=== PATIENT | female | born 1955 | race Caucasian/White ===

== ENCOUNTER 2017-06-26 19:06 | Inpatient (IN) | payer BC ==
[2017-06-26 19:06] VITALS: BMI 23.6
--- NOTE | 2017-06-26 19:45 | C.PDOC ---
History Of Present Illness Patient presents to the ER with a complaint of nausea, vomiting, diarrhea, and dull achy mid epigastric pain. Patient's last meal was last night which was pizza, rice, and beans; she then began having symptoms this morning. Patient is unable to tolerate PO and has had 1 episode of emesis while in the ER. Denies fever or chills. Time Seen by Provider: 06/26/17 19:45 Chief Complaint (Nursing): Abdominal Pain History Per: Patient History/Exam Limitations: no limitations Onset/Duration Of Symptoms: Hrs Current Symptoms Are (Timing): Still Present Context: Food Severity: Moderate Pain Scale Rating Of: 4 Location Of Pain/Discomfort: Epigastric Radiation Of Pain To:: None Quality Of Discomfort: Dull, Aching Associated Symptoms: Nausea, Vomiting, Diarrhea, Other (Not tolerating PO). denies: Fever, Chills Exacerbating Factors: None Alleviating Factors: None Recent travel outside of the [place]: No Additional History Per: Patient Abnormal Vaginal Bleeding: No Past Medical History Reviewed: Historical Data, Nursing Documentation, Vital Signs Vital Signs: Last Vital Signs Temp 98 F 06/26/17 21:22 Pulse 64 06/26/17 21:22 Resp 18 06/26/17 21:22 BP 148/62 06/26/17 21:22 Pulse Ox 100 06/26/17 21:22 - [facility] Procedures ENDOSC POLYPECTOMY OF LG INTEST (08/28/13) Family History: States: No Known Family Hx - Social History Hx Alcohol Use: No Hx Substance Use: Yes (occasional marijuana) - Immunization History Hx Tetanus Toxoid Vaccination: No Hx Influenza Vaccination: No Hx Pneumococcal Vaccination: No Review Of Systems Constitutional: Negative for: Fever, Chills Eyes: Negative for: Redness ENT: Negative for: Throat Pain Cardiovascular: Positive for: Chest Pain Respiratory: Negative for: Shortness of Breath Gastrointestinal: Positive for: Nausea, Vomiting, Abdominal Pain, Diarrhea Genitourinary: Negative for: Dysuria Musculoskeletal: Negative for: Back Pain Skin: Negative for: Rash Neurological: Negative for: Weakness Psych: Negative for: Anxiety Physical Exam - Physical Exam Appears: Non-toxic Skin: Warm, Dry Head: Normacephalic Eye(s): bilateral: Normal Inspection Oral Mucosa: Dry Neck: Supple Chest: Symmetrical, No Tenderness Cardiovascular: Rhythm Regular Respiratory: No Rales, No Rhonchi, No Wheezing Gastrointestinal/Abdominal: Soft, Tenderness (Mid epigastric), No Guarding, No Rebound Back: Normal Inspection Extremity: Normal ROM Extremity: Bilateral: Atraumatic Pulses: Left Dorsalis Pedis: Normal, Right Dorsalis Pedis: Normal Neurological/Psych: Oriented x3, Normal Speech, Normal Cognition Gait: Steady ED Course And Treatment - Laboratory Results Result Diagrams: 06/26/17 20:26 06/26/17 20:26 ECG: Interpreted By Me, Viewed By Me ECG Rhythm: Sinus Rhythm (64), Nonspecific Changes Pulse Ox Interpretation: Normal Progress Note: EKG, blood work, and urinalysis ordered. IV fluids, pepcid, toradol, and zofran administered. Disposition Discussed With Dr.: Akin Islas Comment: accepted the pt on his service and took over the care at 10:40 PM Doctor Will See Patient In The: ED Counseled Patient/Family Regarding: Studies Performed, Diagnosis - Disposition Disposition: HOSPITALIZED Disposition Time: 19:45 Condition: FAIR Forms: [employer] (Montenegrin) - Clinical Impression Clinical Impression: Abdominal pain, Nausea, Vomiting, Acute diverticulitis, NSTEMI (non-ST elevated myocardial infarction) - Scribe Statement The provider has reviewed the documentation as recorded by the Scribe Darrel Candelaria All medical record entries made by the Scribe were at my direction and personally dictated by me. I have reviewed the chart and agree that the record accurately reflects my personal performance of the history, physical exam, medical decision making, and the department course for this patient. I have also personally directed, reviewed, and agree with the discharge instructions and disposition. Decision To Admit - Pt Status Changed To: Hospital Disposition Of: Inpatient - Admit Certification Admit to Inpatient:: After my assessment, the patient will require hospitalization for at least two midnights. This is because of the severity of symptoms shown, intensity of services needed, and/or the medical risk in this patient being treated as an outpatient. - InPatient: Physician Admission Certification:: After my assessment, the patient will require hospitalization for at least two midnights. This is because of the severity of symptoms shown, intensity of services needed, and/or the medical risk in this patient being treated as an outpatient. - . Bed Request Type: Telemetry Admitting Physician: Akin Islas Patient Diagnosis: Abdominal pain, Nausea, Vomiting, Acute diverticulitis, NSTEMI (non-ST elevated myocardial infarction)
[2017-06-26] MEDS ORDERED: Lactated Ringer's 1,000 ML IV ONE (19:53)
[2017-06-26] MEDS ORDERED: Lactated Ringer's 1,000 ML ONE (20:26)
[2017-06-26 20:37] LABS: BASO # 0.1 K/uL (0.0-0.2); BASO % 0.5 % (0.0-2.0); HEMOGLOBIN 11.3 g/dL (11.0-16.0); LYMPH # 0.6 K/uL (1.0-4.3); LYMPH % 5.2 % (20.0-40.0); MEAN CELL VOLUME 85.8 fL (81.0-99.0); MEAN CORPUSCULAR HEMOGLOBIN 27.4 pg (27.0-31.0); MEAN CORPUSCULAR HGB CONC 31.9 g/dL (33.0-37.0); MEAN PLATELET VOLUME 12.7 fL (7.2-11.7); MONO # 0.3 K/uL (0.0-0.8); MONO % 2.4 % (0.0-10.0); NEUT # 10.9 K/uL (1.8-7.0); NEUT % 91.9 % (50.0-75.0); PLATELET COUNT 190 K/uL (130-400); RBC 4.14 Mil/uL (3.80-5.20); RED CELL DISTRIBUTION WIDTH 14.3 % (11.5-14.5); WHITE BLOOD COUNT 11.8 K/uL (4.8-10.8)
[2017-06-26 20:53] LABS: ALBUMIN 4.5 g/dL (3.5-5.0); ALT/SGPT 19 U/L (9-52); AST/SGOT 27 U/L (14-36); BLOOD UREA NITROGEN 16 mg/dL (7-17); GFR AFRICAN-AMERICAN > 60; GFR NON-AFRICAN AMERICAN > 60; LIPASE 36 U/L (23-300)
[2017-06-26 21:01] LABS: ALB/GLOB RATIO 1.2 (1.0-2.1)
[2017-06-26] MEDS ORDERED: Morphine 4 MG/ML VIAL ONE (21:03)
[2017-06-26 21:04] LABS: PROTHROMBIN TIME 11.5 SECONDS (9.7-12.2)
[2017-06-26] MEDS ORDERED: Iohexol 300 100 ML IJ ONE (21:31)
[2017-06-26 22:08] LABS: BANDS 3 % (0-2); LARGE PLATELETS PRESENT; LYMPHOCYTE 8 % (20-40); MICROCYTOSIS SLIGHT; MONOCYTE 5 % (0-10); NEUTROPHIL 84 % (50-75); PLATELET ESTIMATE NORMAL (NORMAL); TOTAL CELLS COUNTED 100
--- NOTE | 2017-06-26 22:30 | CT ---
EXAM: CT Abdomen and Pelvis With Intravenous Contrast CLINICAL HISTORY: 61 years old, female; Pain and signs and symptoms; Nausea and vomiting; Abdominal pain; Generalized; Additional info: Abd pain TECHNIQUE: Axial computed tomography images of the abdomen and pelvis with intravenous contrast. All CT scans at this facility use one or more dose reduction techniques, viz.: automated exposure control; ma/kV adjustment per patient size (including targeted exams where dose is matched to indication; i.e. head); or iterative reconstruction technique. Coronal and sagittal reformatted images were created and reviewed. CONTRAST: 100 mL of omnipaque 300 administered intravenously. COMPARISON: No relevant prior studies available. FINDINGS: Lower thorax: Borderline cardiomegaly. Mild atelectasis. Small cyst or bulla right lower lobe. Small hiatal hernia. ABDOMEN: Liver: Mild periportal edema. Gallbladder and bile ducts: Apparent mild asymmetric gallbladder wall thickening versus fluid. No calcified gallstones. No significant ductal dilation. Pancreas: No ductal dilation. No mass. Spleen: No splenomegaly. Adrenals: 1.1 x 1.2 x 2.0 cm lesion within LEFT adrenal gland, indeterminate by CT criteria. Kidneys and ureters: Few left peripelvic cysts. No hydronephrosis. Stomach and bowel: Multiple scattered diverticula within colon. Moderate mural thickening short segment of sigmoid colon. Minimal stranding within adjacent fat. No obstruction. Appendix: Normal caliber. No inflammation. PELVIS: Bladder: Unremarkable. Reproductive: Lobulated uterus with few calcified lesions. ABDOMEN and PELVIS: Intraperitoneal space: No significant fluid collection. No free air. Bones/joints: Hemangiomas within spine. Degenerative changes of spine. No acute fracture. Soft tissues: Tiny umbilical hernia containing fat. Vasculature: Minimal atherosclerotic disease. No aneurysm. Lymph nodes: No pathologically enlarged lymph nodes. IMPRESSION: 1. Findings compatible with acute diverticulitis of sigmoid colon. Recommend endoscopy following resolution. 2. Apparent mild asymmetric gallbladder wall thickening or fluid. Suggest ultrasound. 3. Adrenal lesion. Recommend further evaluation with unenhanced abdominal CT or MR. Alternatively, if there is a history of malignancy, consider PET. 4. Probable fibroid uterus. 5. Incidental/non-acute findings are described above.
[2017-06-26] MEDS ORDERED: Ciprofloxacin 400mg/200ml D5W 400 MG/200 ML BAG IVPB STA (22:34)
[2017-06-26] MEDS ORDERED: metroNIDAZOLE IV 500 mg/100 ml 500 MG/100 ML BAG IVPB SCH (22:45)
[2017-06-26 22:53] LABS: URINE BILIRUBIN NEGATIVE (NEGATIVE); URINE BLOOD NEGATIVE (NEGATIVE); URINE CLARITY Clear (Clear); URINE COLOR Straw (YELLOW); URINE GLUCOSE (UA) 1+ mg/dL (Normal); URINE LEUKOCYTE ESTERASE NEG Leu/uL (Negative); URINE NITRATE NEGATIVE (NEGATIVE); URINE PROTEIN 1+ mg/dL (NEGATIVE); URINE UROBILINOGEN NORMAL mg/dL (0.2-1.0)
--- NOTE | 2017-06-26 22:57 | CP.PCM.HP ---
<Ramandeep Medina - Last Filed: 06/26/17 23:57> History of Present Illness - History of Present Illness History of Present Illness: Medicine Note for Hospitalist Service CC: abdominal pain and diarrhea x 1 day HPI: 61 Female with PMHx of Breast Cancer (in complete remission) presents to the ED with abdominal pain and diarrhea x 1 day. She reports she was fine up until 11am this morning when she started to experience nausea, crampy abdominal pain localized to her upper abdomen, and nonbloody diarrhea. She did not take anything for the pain or diarrhea. She has not had the desire to eat, only tolerating liquids. At home she stated she felt feverish but no recorded temperature. Admitted to chest discomfort which she attributed to being nauseous. Denied fever, chills, SOB, n/v/c, or urinary symptoms. PMHx: Breast Cancer (1994- lumpectomy and radiation- complete remission) PSHx: Lumpectomy Meds: Denied All: NKDA SHx: Admitted to smoking 5-10 cigs a day >20-30 years ago, wine on weekends, smokes marijuana FHx: Unremarkable PMD: Francheska Velazquez (last seen- 2017 physical) Present on Admission - Present on Admission Any Indicators Present on Admission: No Past Patient History - Past Medical History & Family History Past Medical History?: No - Past Social History Smoking Status: Never Smoked - PSYCHIATRIC Hx Substance Use: Yes (occasional marijuana) - SURGICAL HISTORY Hx Surgeries: Yes Other/Comment: RIGHT BREAST LUMPECTOMY 1994 - ANESTHESIA Hx Anesthesia: Yes Hx Anesthesia Reactions: No Hx Malignant Hyperthermia: No Meds Allergies/Adverse Reactions: Allergies Allergy/AdvReac Type Severity Reaction Status Date / Time No Known Allergies Allergy Unverified 05/10/13 13:48 Physical Exam - Constitutional Appears: No Acute Distress - Head Exam Head Exam: NORMAL INSPECTION, NORMOCEPHALIC - Eye Exam Eye Exam: EOMI, Normal appearance, PERRL - ENT Exam ENT Exam: Mucous Membranes Moist - Respiratory Exam Respiratory Exam: Clear to Auscultation Bilateral, NORMAL BREATHING PATTERN. absent: Decreased Breath Sounds, Wheezes - Cardiovascular Exam Cardiovascular Exam: REGULAR RHYTHM - GI/Abdominal Exam GI & Abdominal Exam: Normal Bowel Sounds, Soft, Tenderness. absent: Distended ( TTP LUQ LLQ ) - Extremities Exam Extremities exam: Positive for: normal inspection, pedal pulses present. Negative for: pedal edema, tenderness - Neurological Exam Neurological exam: Alert, Oriented x3 - Psychiatric Exam Psychiatric exam: Normal Affect, Normal Mood - Skin Skin Exam: Diaphoretic, Intact, Normal Color, Warm Results - Vital Signs Recent Vital Signs: Last Vital Signs Temp 98 F 06/26/17 21:22 Pulse 64 06/26/17 21:22 Resp 18 06/26/17 21:22 BP 148/62 06/26/17 21:22 Pulse Ox 100 06/26/17 21:22 - Labs Result Diagrams: 06/26/17 20:26 06/26/17 20:26 Labs: Laboratory Results - last 24 hr 06/26/17 06/26/17 06/26/17 20:26 20:26 20:46 WBC 11.8 H D RBC 4.14 Hgb 11.3 Hct 35.5 MCV 85.8 MCH 27.4 MCHC 31.9 L RDW 14.3 Plt Count 190 MPV 12.7 H Neut % (Auto) 91.9 H Lymph % (Auto) 5.2 L [place] % (Auto) 2.4 Eos % (Auto) 0.0 Baso % (Auto) 0.5 Neut # 10.9 H Lymph # 0.6 L [place] # 0.3 Eos # 0.0 Baso # 0.1 Neutrophils % (Manual) 84 H Band Neutrophils % 3 H Lymphocytes % (Manual) 8 L Monocytes % (Manual) 5 Platelet Estimate Normal Large Platelets Present Microcytosis (manual) Slight PT 11.5 INR 1.0 APTT 22 Sodium 136 Potassium 3.9 Chloride 99 Carbon Dioxide 25 Anion Gap 15 BUN 16 Creatinine 0.6 L Est GFR ( Amer) > 60 Est GFR (Non-Af Amer) > 60 Random Glucose 155 H Calcium 9.0 Total Bilirubin 1.0 AST 27 ALT 19 Alkaline Phosphatase 72 Troponin I 0.4540 H* Total Protein 8.4 H Albumin 4.5 Globulin 3.9 Albumin/Globulin Ratio 1.2 Lipase 36 Assessment & Plan - Assessment and Plan (Free Text) Assessment: 61 Female with PMHx of Breast Cancer (in complete remission) presents to the ED with abdominal pain and diarrhea x 1 day, with NSTEMI and diverticulitis noted on CT ab/pelvis. Plan: NSTEMI Cardiology consulted - Dr. Gillette- help appreciated EKG: , f/u EKG x2 Troponin: 0.4540, f/u RUTH x2 F/U Lipid panel, HGA1C, TSH, T4 Imaging: F/U ECHO Meds: ASA 81, Crestor 10mg Diverticulitis Afebrile, vitals stable, leukocytosis with left shift, no bandemia Imaging: CT Ab/Pelvis: Findings compatible with acute diverticulitis of sigmoid colon. Recommend endoscopy following resolution. Apparent mild asymmetric gallbladder wall thickening or fluid. Suggest ultrasound. Adrenal lesion. Recommend further evaluation with unenhanced abdominal CT or MR. Alternatively , if there is a history of malignancy, consider PET. Probable fibroid uterus. Meds: NPO, NS @ 100cc/hr Cipro Q12, Flagyl Q8H Morphine PRN, Zofran PRN, Tylenol PRN Adrenal lesion noted on CT Scan Prophylactic Measures GI PPX: Protonix 40mg IVP daily DVT PPX: Heparin Q12, SCDs DW Dr. Islas, Ramandeep Medina DO, PGY-1 <Akin Islas - Last Filed: 06/27/17 06:31> Results - Vital Signs Recent Vital Signs: Last Vital Signs Temp 97.7 F 06/27/17 01:00 Pulse 54 L 06/27/17 01:05 Resp 20 06/27/17 01:05 BP 122/69 06/27/17 01:00 Pulse Ox 100 06/27/17 01:00 - Labs Result Diagrams: 06/26/17 20:26 06/26/17 20:26 Labs: Laboratory Results - last 24 hr 06/26/17 06/26/17 06/26/17 20:26 20:26 20:46 WBC 11.8 H D RBC 4.14 Hgb 11.3 Hct 35.5 MCV 85.8 MCH 27.4 MCHC 31.9 L RDW 14.3 Plt Count 190 MPV 12.7 H Neut % (Auto) 91.9 H Lymph % (Auto) 5.2 L [place] % (Auto) 2.4 Eos % (Auto) 0.0 Baso % (Auto) 0.5 Neut # 10.9 H Lymph # 0.6 L [place] # 0.3 Eos # 0.0 Baso # 0.1 Neutrophils % (Manual) 84 H Band Neutrophils % 3 H Lymphocytes % (Manual) 8 L Monocytes % (Manual) 5 Platelet Estimate Normal Large Platelets Present Microcytosis (manual) Slight PT 11.5 INR 1.0 APTT 22 Sodium 136 Potassium 3.9 Chloride 99 Carbon Dioxide 25 Anion Gap 15 BUN 16 Creatinine 0.6 L Est GFR ( Amer) > 60 Est GFR (Non-Af Amer) > 60 Random Glucose 155 H Hemoglobin A1c Calcium 9.0 Total Bilirubin 1.0 AST 27 ALT 19 Alkaline Phosphatase 72 Troponin I 0.4540 H* Total Protein 8.4 H Albumin 4.5 Globulin 3.9 Albumin/Globulin Ratio 1.2 Lipase 36 Thyroxine (T4) TSH 3rd Generation Urine Color Urine Clarity Urine pH Ur Specific [place] Urine Protein Urine Glucose (UA) Urine Ketones Urine Blood Urine Nitrate Urine Bilirubin Urine Urobilinogen Ur Leukocyte Esterase Urine RBC (Auto) 06/26/17 06/26/17 06/26/17 22:45 23:34 23:34 WBC RBC Hgb Hct MCV MCH MCHC RDW Plt Count MPV Neut % (Auto) Lymph % (Auto) [place] % (Auto) Eos % (Auto) Baso % (Auto) Neut # Lymph # [place] # Eos # Baso # Neutrophils % (Manual) Band Neutrophils % Lymphocytes % (Manual) Monocytes % (Manual) Platelet Estimate Large Platelets Microcytosis (manual) PT INR APTT Sodium Potassium Chloride Carbon Dioxide Anion Gap BUN Creatinine Est GFR ( Amer) Est GFR (Non-Af Amer) Random Glucose Hemoglobin A1c 5.3 Calcium Total Bilirubin AST ALT Alkaline Phosphatase Troponin I Total Protein Albumin Globulin Albumin/Globulin Ratio Lipase Thyroxine (T4) 10.5 TSH 3rd Generation 0.77 Urine Color Straw Urine Clarity Clear Urine pH 7.0 Ur Specific [place] 1.043 H Urine Protein 1+ H Urine Glucose (UA) 1+ Urine Ketones Trace Urine Blood Negative Urine Nitrate Negative Urine Bilirubin Negative Urine Urobilinogen Normal Ur Leukocyte Esterase Neg Urine RBC (Auto) 1 Assessment & Plan - Date & Time Date: 06/27/17 (I have seen and examined the patient. I agree with the findings and plan of care as documented by Dr. Medina. Patient with NSTEMI and acute diverticulitis. Consult to Dr Gillette. Aspirin and Statin. ROMIx3 with EKG. 2D Echo. Cipro and Flagyl. Symptomatic treatment. Monitor for acute changes.) Time: 06:30 Attending/Attestation - Attestation I have personally seen and examined this patient.: Yes I have fully participated in the care of the patient.: Yes I have reviewed all pertinent clinical information: Yes
[2017-06-26] MEDS ORDERED: Sodium Chloride 0.9% 1,000 ML ONE (23:20)
[2017-06-26] MEDS: Sodium Chloride 0.9% 1,000 ML IV SCH (23:27)
[2017-06-27 00:10] LABS: T4 10.5 ug/dL (5.5-11.0)
[2017-06-27] MEDS ORDERED: metroNIDAZOLE IV 500 mg/100 ml 250 MG in Premixed IV 1 EA IVPB SCH (06:00)
[2017-06-27 07:05] LABS: LDL CHOLESTEROL 105 mg/dL (0-129)
[2017-06-27 07:20] LABS: ALB/GLOB RATIO 1.1 (1.0-2.1); ALBUMIN 3.7 g/dL (3.5-5.0); ALT/SGPT 20 U/L (9-52); AST/SGOT 31 U/L (14-36); BASO % 0.2 % (0.0-2.0); BLOOD UREA NITROGEN 14 mg/dL (7-17); CALCIUM 8.4 mg/dl (8.6-10.4); GFR AFRICAN-AMERICAN > 60; GFR NON-AFRICAN AMERICAN > 60; HDL CHOLESTEROL 40 mg/dL (30-70); HEMOGLOBIN 10.1 g/dL (11.0-16.0); LYMPH # 1.2 K/uL (1.0-4.3); LYMPH % 13.2 % (20.0-40.0); MAGNESIUM 1.6 mg/dL (1.6-2.3); MEAN CELL VOLUME 86.2 fL (81.0-99.0); MEAN CORPUSCULAR HEMOGLOBIN 28.2 pg (27.0-31.0); MEAN CORPUSCULAR HGB CONC 32.7 g/dL (33.0-37.0); MEAN PLATELET VOLUME 13.5 fL (7.2-11.7); MONO # 0.5 K/uL (0.0-0.8); MONO % 6.2 % (0.0-10.0); NEUT # 7.2 K/uL (1.8-7.0); NEUT % 80.4 % (50.0-75.0); RBC 3.58 Mil/uL (3.80-5.20); WHITE BLOOD COUNT 8.9 K/uL (4.8-10.8)
[2017-06-27 07:30] LABS: CK-MB 8.06 ng/mL (0.0-3.38); TROPONIN I 1.55 ng/mL (0.00-0.120)
[2017-06-27] MEDS ORDERED: Enoxaparin 80 mg Syringe SC SCH (07:45)
[2017-06-27] MEDS: Saccharomyces Boulardi 250 mg Cap PO SCH ×3 (08:10→17:40)
--- NOTE | 2017-06-27 08:20 | CP.PCM.PN ---
<Radha Walls - Last Filed: 06/27/17 17:32> Subjective - Date & Time of Evaluation Date of Evaluation: 06/27/17 Time of Evaluation: 07:00 - Subjective Subjective: Medicine Progress Note: Patient was seen and examined at bedside in the AM. Patient denies chest pain, palpitations, difficulty breathing, fever, nausea, or vomiting. Patient states since she was admitted to the hospital she has not had an episode of diarrhea. Objective - Vital Signs/Intake and Output Vital Signs (last 24 hours): Temp Pulse Resp BP Pulse Ox 98.4 F 46 L 20 122/67 100 06/27/17 08:17 06/27/17 08:17 06/27/17 08:17 06/27/17 08:17 06/27/17 08:17 - Medications Medications: Current Medications Acetaminophen (Tylenol 325mg Tab) 650 mg PO Q6 PRN PRN Reason: Fever >100.4 F Last Admin: 06/26/17 23:27 Dose: 650 mg Aspirin (Aspirin Chewable) 81 mg PO DAILY [facility] Clopidogrel Bisulfate (Plavix) 75 mg PO DAILY [facility] Last Admin: 06/27/17 08:10 Dose: 75 mg Enoxaparin Sodium (Lovenox) 70 mg SC DAILY [facility] Metronidazole (Flagyl) 500 mg in 100 mls @ 100 mls/hr IVPB STAT [facility] Last Admin: 06/26/17 23:27 Dose: 100 mls/hr Sodium Chloride (Sodium Chloride 0.9%) 1,000 mls @ 100 mls/hr IV .Q10H [facility] Last Admin: 06/26/17 23:27 Dose: 100 mls/hr Ciprofloxacin (Cipro 400mg/200ml Dsw) 400 mg in 200 mls @ 133 mls/hr IVPB Q12H [facility] Metronidazole 250 mg/ (Miscellaneous) 50 mls @ 100 mls/hr IVPB Q8 [facility] Morphine Sulfate (Morphine) 1 mg IVP Q4 PRN PRN Reason: Pain, severe (8-10) Last Admin: 06/27/17 00:20 Dose: 1 mg Ondansetron HCl (Zofran Inj) 4 mg IVP Q6 PRN PRN Reason: Nausea/Vomiting Last Admin: 06/26/17 23:27 Dose: 4 mg Pneumococcal Polyvalent Vaccine (Pneumovax 23 Vaccine) 0.5 ml IM .ONCE ONE Stop: 06/30/17 14:01 Rosuvastatin Calcium (Crestor) 10 mg PO HS [facility] Saccharomyces Boulardii (Florastor) 250 mg PO BID [facility] Last Admin: 06/27/17 08:10 Dose: 250 mg - Labs Labs: 06/27/17 06:32 06/27/17 06:32 PT 11.5 SECONDS (9.7-12.2) 06/26/17 20:46 INR 1.0 06/26/17 20:46 APTT 22 SECONDS (21-34) 06/26/17 20:46 - Constitutional Appears: No Acute Distress - Head Exam Head Exam: ATRAUMATIC, NORMAL INSPECTION - Eye Exam Eye Exam: Normal appearance - ENT Exam ENT Exam: Mucous Membranes Moist - Respiratory Exam Respiratory Exam: Clear to Ausculation Bilateral, NORMAL BREATHING PATTERN - Cardiovascular Exam Cardiovascular Exam: REGULAR RHYTHM, +S1, +S2 - GI/Abdominal Exam GI & Abdominal Exam: Soft, Normal Bowel Sounds. absent: Tenderness - Extremities Exam Extremities Exam: Normal Inspection. absent: Pedal Edema, Tenderness - Neurological Exam Neurological Exam: Alert, Awake, Oriented x3 - Psychiatric Exam Psychiatric exam: Normal Affect, Normal Mood - Skin Skin Exam: Normal Color, Warm Assessment and Plan - Assessment and Plan (Free Text) Assessment: 61 Female with PMHx of Breast Cancer (in complete remission) presents to the ED with abdominal pain and diarrhea x 1 day, with NSTEMI and diverticulitis noted on CT ab/pelvis. 1.) NSTEMI - Cardiology consulted: Dr. Gillette --> help appreciated - EK x3: Bradycardia; prolonged QT - Troponin: 0.4540, 1.5500, 1.3200 - Cholesterol 179; LDL 105; HDL 40; Triglycerides 77 - TSH 0.77 Imaging: * ECHO: Left ventricle systolic function is mildly impaired. The ejection fraction is 50-55%. The left ventricular diastolic function is normal. There is mild pulmonary hypertension - Medications: * ASA 81, * Crestor 10mg * Lovenox 40mg SC daily - s/p Cath 06/27/16: Patient transferred to ICU for monitoring 2.) Diverticulitis - Afebrile, vitals stable, leukocytosis with left shift, no bandemia - Imaging: * CT Ab/Pelvis: Findings compatible with acute diverticulitis of sigmoid colon. Recommend endoscopy following resolution. Apparent mild asymmetric gallbladder wall thickening or fluid. Suggest ultrasound. Adrenal lesion. Recommend further evaluation with unenhanced abdominal CT or MR. Alternatively , if there is a history of malignancy, consider PET. Probable fibroid uterus. - Medications: * NS @ 100cc/hr * Cipro 400mg Q12 * Flagyl 250mg Q8H * Morphine PRN, * Zofran PRN, * Tylenol PRN 3.) Prophylactic Measures - GI PPX: Protonix 40mg IVP daily - DVT PPX: Lovenox 40mg SC daily, SCDs Patient transferred to ICU s/p cardiac cath for monitoring Case discussed with Dr. Haris Walls PGY -1 <Gallo Carballo - Last Filed: 06/27/17 19:04> Objective - Vital Signs/Intake and Output Vital Signs (last 24 hours): Temp Pulse Resp BP Pulse Ox 98.7 F 48 L 20 132/72 98 06/27/17 12:16 06/27/17 12:16 06/27/17 12:16 06/27/17 12:16 06/27/17 12:16 - Medications Medications: Current Medications Acetaminophen (Tylenol 325mg Tab) 650 mg PO Q6 PRN PRN Reason: Fever >100.4 F Last Admin: 06/26/17 23:27 Dose: 650 mg Aspirin (Aspirin Chewable) 81 mg PO DAILY [facility] Last Admin: 06/27/17 09:29 Dose: 81 mg Enoxaparin Sodium (Lovenox) 40 mg SC DAILY [facility] Sodium Chloride (Sodium Chloride 0.9%) 1,000 mls @ 100 mls/hr IV .Q10H [facility] Last Admin: 06/27/17 17:42 Dose: 100 mls/hr Metronidazole (Flagyl) 250 mg in 50 mls @ 100 mls/hr IVPB Q8H [facility] Last Admin: 06/27/17 17:40 Dose: 100 mls/hr Morphine Sulfate (Morphine) 1 mg IVP Q4 PRN PRN Reason: Pain, severe (8-10) Last Admin: 06/27/17 17:35 Dose: 1 mg Ondansetron HCl (Zofran Inj) 4 mg IVP Q6 PRN PRN Reason: Nausea/Vomiting Last Admin: 06/27/17 17:29 Dose: 4 mg Pantoprazole Sodium (Protonix Inj) 40 mg IVP DAILY [facility] Pneumococcal Polyvalent Vaccine (Pneumovax 23 Vaccine) 0.5 ml IM .ONCE ONE Stop: 06/30/17 14:01 Rosuvastatin Calcium (Crestor) 10 mg PO HS [facility] Saccharomyces Boulardii (Florastor) 250 mg PO BID [facility] Last Admin: 06/27/17 17:40 Dose: Not Given - Labs Labs: 06/27/17 06:32 PT 11.5 SECONDS (9.7-12.2) 06/26/17 20:46 INR 1.0 06/26/17 20:46 APTT 22 SECONDS (21-34) 06/26/17 20:46 Attending/Attestation - Attestation I have personally seen and examined this patient.: Yes I have fully participated in the care of the patient.: Yes I have reviewed all pertinent clinical information, including history, physical exam and plan: Yes Notes (Text): patient was seen and examined No fever,abd pain is better,no chest pain this morning,no leukocytosis NSTEMI ,prolonged QT interval,bradycardia s/p cardiac cath. report noted,s/p TVP tranferred to ICU CT scan reported diverticulitis.Benign abdomen without fever and leukocytosis.I will stop cipro which can cause prolonged QT interval D/W Resident this morning I agree with the documentation of the assessment and the plan
[2017-06-27] MEDS: Sodium Chloride 0.9% 1,000 ML IV SCH ×3 (09:29→19:02)
[2017-06-27] MEDS ORDERED: Ciprofloxacin 400mg/200ml D5W 400 MG/200 ML BAG IVPB SCH (10:00)
[2017-06-27] MEDS: metroNIDAZOLE IV 250mg/50 ml 250 MG/50 ML BAG IVPB SCH ×2 (11:08→17:40)
[2017-06-27 12:38] LABS: CK-MB 7.44 ng/mL (0.0-3.38); TROPONIN I 1.32 ng/mL (0.00-0.120)
--- NOTE | 2017-06-27 13:01 | CARD ---
APPROVED REPORT EXAM: Two-dimensional and M-mode echocardiogram with Doppler and color Doppler. Other Information Quality : GoodRhythm : INDICATION Non STEMI CA OF BREAST 2D DIMENSIONS IVSd0.8 (0.7-1.1cm)LVDd5.3 (3.9-5.9cm) PWd0.7 (0.7-1.1cm)LVDs3.7 (2.5-4.0cm) FS (%) 30.7 %LVEF (%)57.8 (>50%) M-Mode DIMENSIONS Left Atrium (MM)4.23 (2.5-4.0cm)Aortic Root2.60 (2.2-3.7cm) Aortic Cusp Exc.1.84 (1.5-2.0cm) Mitral Valve MV E Pzzuulys04.0cm/sMV A Wqwahxun13.4cm/sE/A ratio1.6 TDI E/Lateral E'0.0E/Medial E'0.0 Tricuspid Valve TR Peak [id number]/sTR Peak [id number] LEFT VENTRICLE The left ventricle is normal size. There is normal left ventricular wall thickness. Left ventricle systolic function is mildly impaired. The Ejection Fraction is 50-55%., No GLS Global hypokinesia, mildly The left ventricular diastolic function is normal. There is no ventricular septal defect visualized. RIGHT VENTRICLE The right ventricle is normal size. The right ventricular systolic function is normal. ATRIA The left atrium is mildly dilated. The right atrium size is normal. AORTIC VALVE The aortic valve is mildly sclerotic. The aortic valve is tri-cuspid. No aortic regurgitation is present. There is no aortic valvular stenosis. MITRAL VALVE The mitral valve is normal in structure. There is no evidence of mitral valve prolapse. There is no mitral valve stenosis. TRICUSPID VALVE The tricuspid valve is normal in structure. There is trace tricuspid regurgitation. Right ventricular systolic pressure is estimated at 30-40 mmHg. There is mild pulmonary hypertension. PULMONIC VALVE The pulmonic valve is not well visualized. There is trace pulmonic valvular regurgitation. GREAT VESSELS The aortic root is normal in size. The ascending aorta is normal in size. The IVC is normal in size and collapses >50% with inspiration. PERICARDIAL EFFUSION There is no pericardial effusion. <Conclusion> Left ventricle systolic function is mildly impaired. The Ejection Fraction is 50-55%. The left ventricular diastolic function is normal. There is mild pulmonary hypertension.
[2017-06-27] MEDS ORDERED: Phenylephrine 10 mg/ml Inj ONE (13:26)
[2017-06-27] MEDS ORDERED: Midazolam 2 MG/2 ML VIAL ONE (13:27)
[2017-06-27] MEDS ORDERED: Lidocaine 2% Inj (20ml) ONE (13:39)
--- NOTE | 2017-06-27 14:51 | CP.PCM.PN ---
Subjective - Date & Time of Evaluation Date of Evaluation: 06/27/17 Time of Evaluation: 14:49 - Subjective Subjective: Patient s/p cath Normal Coronaries EF 55% Myocarditis Prolonged QT Symptomatic bradycardia TVP inserted ICU monitoring Monitor and replace electrolytes Change Lovenox 40sc daily D/C Plavix IVF Objective - Vital Signs/Intake and Output Vital Signs (last 24 hours): Temp Pulse Resp BP Pulse Ox 98.7 F 48 L 20 132/72 98 06/27/17 12:16 06/27/17 12:16 06/27/17 12:16 06/27/17 12:16 06/27/17 12:16 - Medications Medications: Current Medications Acetaminophen (Tylenol 325mg Tab) 650 mg PO Q6 PRN PRN Reason: Fever >100.4 F Last Admin: 06/26/17 23:27 Dose: 650 mg Aspirin (Aspirin Chewable) 81 mg PO DAILY [facility] Last Admin: 06/27/17 09:29 Dose: 81 mg Clopidogrel Bisulfate (Plavix) 75 mg PO DAILY [facility] Last Admin: 06/27/17 08:10 Dose: 75 mg Enoxaparin Sodium (Lovenox) 70 mg SC DAILY [facility] Last Admin: 06/27/17 11:08 Dose: 70 mg Sodium Chloride (Sodium Chloride 0.9%) 1,000 mls @ 100 mls/hr IV .Q10H [facility] Last Admin: 06/27/17 09:29 Dose: 100 mls/hr Ciprofloxacin (Cipro 400mg/200ml Dsw) 400 mg in 200 mls @ 133 mls/hr IVPB Q12H [facility] Last Admin: 06/27/17 09:28 Dose: 133 mls/hr Metronidazole (Flagyl) 250 mg in 50 mls @ 100 mls/hr IVPB Q8H [facility] Last Admin: 06/27/17 11:08 Dose: 100 mls/hr Morphine Sulfate (Morphine) 1 mg IVP Q4 PRN PRN Reason: Pain, severe (8-10) Last Admin: 06/27/17 00:20 Dose: 1 mg Ondansetron HCl (Zofran Inj) 4 mg IVP Q6 PRN PRN Reason: Nausea/Vomiting Last Admin: 06/26/17 23:27 Dose: 4 mg Pneumococcal Polyvalent Vaccine (Pneumovax 23 Vaccine) 0.5 ml IM .ONCE ONE Stop: 06/30/17 14:01 Rosuvastatin Calcium (Crestor) 10 mg PO HS [facility] Saccharomyces Boulardii (Florastor) 250 mg PO BID [facility] Last Admin: 06/27/17 14:20 Dose: Not Given - Labs Labs: 06/27/17 06:32 06/27/17 06:32 PT 11.5 SECONDS (9.7-12.2) 06/26/17 20:46 INR 1.0 06/26/17 20:46 APTT 22 SECONDS (21-34) 06/26/17 20:46
[2017-06-27] MEDS ORDERED: Magnesium Sulfate 1 gm in D5W 1 GM/100 ML BAG IVPB ONE ×2 (16:39→17:40)
--- NOTE | 2017-06-27 16:55 | CP.PCM.CON ---
<DelorisTobin waddell - Last Filed: 06/27/17 17:20> History of Present Illness - History of Present Illness History of Present Illness: CCU Consult Note HPI: Pt is a 61F w/ h/o Breast Cancer (in complete remision) who presented to the ED w/ nausea, vomiting, diarrhea, and dull achy mid epigastric pain and diarrhea x 1 day. Last meal was 15 in the PM. Pt began having symptoms at 11 am 06/27. Has only been able to tolerate PO liquids and had 1 episode of emesis in the ED. Patient was evaluated by Dr. Gillette for symptomatic bradycardia. TVP was inserted via femoral approach. Consulted CCU for closer monitoring PMH: Breast Cancer 1994, s/p lumpectomy and radiation - complete remission PSH: Lumpectomy 1994 FH: none SH: smokes 5-10 cigarettes a day > 20-30 years ago, wine on weekends, smokes marijuana Meds: none All: none Review of Systems - Review of Systems Review of Systems: per hpi Past Patient History - Past Medical History & Family History Past Medical History?: Yes - Past Social History Smoking Status: Never Smoked - CARDIAC Hx Cardiac Disorders: No - PULMONARY Hx Respiratory Disorders: No - NEUROLOGICAL Hx Neurological Disorder: No - HEENT Hx HEENT Problems: No - RENAL Hx Chronic Kidney Disease: No - ENDOCRINE/METABOLIC Hx Endocrine Disorders: No - HEMATOLOGICAL/ONCOLOGICAL Hx Blood Disorders: No - INTEGUMENTARY Hx Dermatological Problems: No - MUSCULOSKELETAL/RHEUMATOLOGICAL Hx Musculoskeletal Disorders: No Hx Falls: No - GASTROINTESTINAL Hx Gastrointestinal Disorders: No - GENITOURINARY/GYNECOLOGICAL Hx Genitourinary Disorders: No Other/Comment: Breast Ca 1994-in remission - PSYCHIATRIC Hx Psychophysiologic Disorder: No Hx Substance Use: Yes (Occ Marijuana use) - SURGICAL HISTORY Hx Surgeries: Yes Other/Comment: RIGHT BREAST LUMPECTOMY 1994 - ANESTHESIA Hx Anesthesia: Yes Hx Anesthesia Reactions: No Hx Malignant Hyperthermia: No Has any member of the family had a problem w/ anesthesia?: No Meds Allergies/Adverse Reactions: Allergies Allergy/AdvReac Type Severity Reaction Status Date / Time No Known Allergies Allergy Unverified 05/10/13 13:48 - Medications Medications: Current Medications Acetaminophen (Tylenol 325mg Tab) 650 mg PO Q6 PRN PRN Reason: Fever >100.4 F Last Admin: 06/26/17 23:27 Dose: 650 mg Aspirin (Aspirin Chewable) 81 mg PO DAILY [facility]S [facility] Last Admin: 06/27/17 09:29 Dose: 81 mg Enoxaparin Sodium (Lovenox) 40 mg SC DAILY [facility] 234 BEDS AT [facility] Sodium Chloride (Sodium Chloride 0.9%) 1,000 mls @ 100 mls/hr IV .Q10H [facility]S [facility] 234 BEDS AT [facility] Last Admin: 06/27/17 09:29 Dose: 100 mls/hr Ciprofloxacin (Cipro 400mg/200ml Dsw) 400 mg in 200 mls @ 133 mls/hr IVPB Q12H [facility] 234 BEDS AT [facility] Last Admin: 06/27/17 09:28 Dose: 133 mls/hr Metronidazole (Flagyl) 250 mg in 50 mls @ 100 mls/hr IVPB Q8H [facility] 234 BEDS AT [facility] Last Admin: 06/27/17 11:08 Dose: 100 mls/hr Magnesium Sulfate/Dextrose (Magnesium Sulfate 1 Gm/100 Ml D5w) 1 gm in 100 mls @ 100 mls/hr IVPB ONCE ONE Stop: 06/27/17 17:38 Magnesium Sulfate/Dextrose (Magnesium Sulfate 1 Gm/100 Ml D5w) 1 gm in 100 mls @ 100 mls/hr IVPB ONCE ONE Stop: 06/27/17 18:39 Morphine Sulfate (Morphine) 1 mg IVP Q4 PRN PRN Reason: Pain, severe (8-10) Last Admin: 06/27/17 00:20 Dose: 1 mg Ondansetron HCl (Zofran Inj) 4 mg IVP Q6 PRN PRN Reason: Nausea/Vomiting Last Admin: 06/26/17 23:27 Dose: 4 mg Pneumococcal Polyvalent Vaccine (Pneumovax 23 Vaccine) 0.5 ml IM .ONCE ONE Stop: 06/30/17 14:01 Rosuvastatin Calcium (Crestor) 10 mg PO [facility] Saccharomyces Boulardii (Florastor) 250 mg PO BID [facility]S [facility]CLUDE 234 BEDS AT [facility] Last Admin: 06/27/17 14:20 Dose: Not Given Physical Exam - Constitutional Appears: Well, Non-toxic, No Acute Distress - Head Exam Head Exam: ATRAUMATIC, NORMAL INSPECTION, NORMOCEPHALIC - Eye Exam Eye Exam: EOMI Pupil Exam: NORMAL ACCOMODATION - ENT Exam ENT Exam: Mucous Membranes Moist - Respiratory Exam Respiratory Exam: Clear to Auscultation Bilateral, NORMAL BREATHING PATTERN - Cardiovascular Exam Cardiovascular Exam: REGULAR RHYTHM - GI/Abdominal Exam GI & Abdominal Exam: Normal Bowel Sounds, Soft, Tenderness (tender to palpation in LLQ). absent: Distended - Extremities Exam Additional comments: transvenous pacer R. fem - Neurological Exam Neurological exam: Alert, Oriented x3 - Psychiatric Exam Psychiatric exam: Normal Affect, Normal Mood - Skin Skin Exam: Dry, Intact, Normal Color, Warm Results - Vital Signs Recent Vital Signs: Last Vital Signs Temp 98.7 F 06/27/17 12:16 Pulse 48 L 06/27/17 12:16 Resp 20 06/27/17 12:16 BP 132/72 06/27/17 12:16 Pulse Ox 98 06/27/17 12:16 - Labs Result Diagrams: 06/27/17 06:32 06/27/17 06:32 Labs: Laboratory Results - last 24 hr 06/26/17 06/26/17 06/26/17 20:26 20:26 20:46 WBC 11.8 H D RBC 4.14 Hgb 11.3 Hct 35.5 MCV 85.8 MCH 27.4 MCHC 31.9 L RDW 14.3 Plt Count 190 MPV 12.7 H Neut % (Auto) 91.9 H Lymph % (Auto) 5.[address] % (Auto) 2.4 Eos % (Auto) 0.0 Baso % (Auto) 0.5 Neut # 10.9 H Lymph # 0.[address] [place] # 0.3 Eos # 0.0 Baso # 0.1 Neutrophils % (Manual) 84 H Band Neutrophils % 3 H Lymphocytes % (Manual) 8 L Monocytes % (Manual) 5 Platelet Estimate Normal Large Platelets Present Microcytosis (manual) Slight PT 11.5 INR 1.0 APTT 22 Sodium 136 Potassium 3.9 Chloride 99 Carbon Dioxide 25 Anion Gap 15 BUN 16 Creatinine 0.6 L Est GFR ( Amer) > 60 Est GFR (Non-Af Amer) > 60 Random Glucose 155 H Hemoglobin A1c Calcium 9.0 Phosphorus Magnesium Total Bilirubin 1.0 AST 27 ALT 19 Alkaline Phosphatase 72 Total Creatine Kinase CK-MB (Mass) Troponin I 0.4540 H* Total Protein 8.4 H Albumin 4.5 Globulin 3.9 Albumin/Globulin Ratio 1.2 Triglycerides Cholesterol LDL Cholesterol Direct HDL Cholesterol Lipase 36 Thyroxine (T4) TSH 3rd Generation Urine Color Urine Clarity Urine pH Ur Specific [place] Urine Protein Urine Glucose (UA) Urine Ketones Urine Blood Urine Nitrate Urine Bilirubin Urine Urobilinogen Ur Leukocyte Esterase Urine RBC (Auto) 06/26/17 06/26/17 06/26/17 22:45 23:34 23:34 WBC RBC Hgb Hct MCV MCH MCHC RDW Plt Count MPV Neut % (Auto) Lymph % (Auto) [place] % (Auto) Eos % (Auto) Baso % (Auto) Neut # Lymph # [place] # Eos # Baso # Neutrophils % (Manual) Band Neutrophils % Lymphocytes % (Manual) Monocytes % (Manual) Platelet Estimate Large Platelets Microcytosis (manual) PT INR APTT Sodium Potassium Chloride Carbon Dioxide Anion Gap BUN Creatinine Est GFR ( Amer) Est GFR (Non-Af Amer) Random Glucose Hemoglobin A1c 5.3 Calcium Phosphorus Magnesium Total Bilirubin AST ALT Alkaline Phosphatase Total Creatine Kinase CK-MB (Mass) Troponin I Total Protein Albumin Globulin Albumin/Globulin Ratio Triglycerides Cholesterol LDL Cholesterol Direct HDL Cholesterol Lipase Thyroxine (T4) 10.5 TSH 3rd Generation 0.77 Urine Color Straw Urine Clarity Clear Urine pH 7.0 Ur Specific [place] 1.043 H Urine Protein 1+ H Urine Glucose (UA) 1+ Urine Ketones Trace Urine Blood Negative Urine Nitrate Negative Urine Bilirubin Negative Urine Urobilinogen Normal Ur Leukocyte Esterase Neg Urine RBC (Auto) 1 06/27/17 06/27/17 06/27/17 06:32 06:32 06:32 WBC 8.9 RBC 3.58 L Hgb 10.1 L Hct 30.9 L MCV 86.2 MCH 28.2 MCHC 32.7 L RDW 14.0 Plt Count 142 MPV 13.5 H Neut % (Auto) 80.4 H Lymph % (Auto) 13.[address] [place] % (Auto) 6.2 Eos % (Auto) 0.0 Baso % (Auto) 0.2 Neut # 7.2 H Lymph # 1.2 [place] # 0.5 Eos # 0.0 Baso # 0.0 Neutrophils % (Manual) Band Neutrophils % Lymphocytes % (Manual) Monocytes % (Manual) Platelet Estimate Large Platelets Microcytosis (manual) PT INR APTT Sodium 135 Potassium 4.0 Chloride 101 Carbon Dioxide 29 Anion Gap 8 L BUN 14 Creatinine 0.8 Est GFR ( Amer) > 60 Est GFR (Non-Af Amer) > 60 Random Glucose 101 Hemoglobin A1c Calcium 8.4 L Phosphorus 3.6 Magnesium 1.6 Total Bilirubin 1.2 AST 31 ALT 20 Alkaline Phosphatase 57 Total Creatine Kinase 231 H CK-MB (Mass) 8.06 H Troponin I 1.5500 H* Total Protein 7.1 Albumin 3.7 Globulin 3.3 Albumin/Globulin Ratio 1.1 Triglycerides 77 D Cholesterol 179 LDL Cholesterol Direct 105 HDL Cholesterol 40 Lipase Thyroxine (T4) TSH 3rd Generation Urine Color Urine Clarity Urine pH Ur Specific [place] Urine Protein Urine Glucose (UA) Urine Ketones Urine Blood Urine Nitrate Urine Bilirubin Urine Urobilinogen Ur Leukocyte Esterase Urine RBC (Auto) 06/27/17 11:54 WBC RBC Hgb Hct MCV MCH MCHC RDW Plt Count MPV Neut % (Auto) Lymph % (Auto) [place] % (Auto) Eos % (Auto) Baso % (Auto) Neut # Lymph # [place] # Eos # Baso # Neutrophils % (Manual) Band Neutrophils % Lymphocytes % (Manual) Monocytes % (Manual) Platelet Estimate Large Platelets Microcytosis (manual) PT INR APTT Sodium Potassium Chloride Carbon Dioxide Anion Gap BUN Creatinine Est GFR ( Amer) Est GFR (Non-Af Amer) Random Glucose Hemoglobin A1c Calcium Phosphorus Magnesium Total Bilirubin AST ALT Alkaline Phosphatase Total Creatine Kinase 281 H CK-MB (Mass) 7.44 H Troponin I 1.3200 H* Total Protein Albumin Globulin Albumin/Globulin Ratio Triglycerides Cholesterol LDL Cholesterol Direct HDL Cholesterol Lipase Thyroxine (T4) TSH 3rd Generation Urine Color Urine Clarity Urine pH Ur Specific [place] Urine Protein Urine Glucose (UA) Urine Ketones Urine Blood Urine Nitrate Urine Bilirubin Urine Urobilinogen Ur Leukocyte Esterase Urine RBC (Auto) Assessment & Plan - Assessment and Plan (Free Text) Assessment: 61F Symptomatic Bradycardia s/p TVP POD 0 Plan: Cardio: Cards ([employer]) D/C Plavix NS @ 100 Aspirin 81 PO Daily Lovenox 40 SC Daily Crestor 10 PO HS, GI: Abdominal CT acute diverticulitis of sigmoid colon. Ciprofloxacin 400 IV Q12 Flagyl 250 IV Q8 Zofran 4 IV Q6 Tylenol 650 PO Q6 PRN Morphine 1 IV Q4 PRN CLD Prophylaxis: DVT: Heparin SC Q8. SCDs GI: Protonix 40 mg IVP Daily <Tunde Aguila - Last Filed: 06/27/17 18:20> Meds - Medications Medications: Current Medications Acetaminophen (Tylenol 325mg Tab) 650 mg PO Q6 PRN PRN Reason: Fever >100.4 F Last Admin: 06/26/17 23:27 Dose: 650 mg Aspirin (Aspirin Chewable) 81 mg PO DAILY [facility] 234 BEDS AT [facility] Last Admin: 06/27/17 09:29 Dose: 81 mg Enoxaparin Sodium (Lovenox) 40 mg SC DAILY [facility]CLUDE 234 BEDS AT [facility] Sodium Chloride (Sodium Chloride 0.9%) 1,000 mls @ 100 mls/hr IV .Q10H [facility]CLUDE 234 BEDS AT [facility] Last Admin: 06/27/17 17:42 Dose: 100 mls/hr Ciprofloxacin (Cipro 400mg/200ml Dsw) 400 mg in 200 mls @ 133 mls/hr IVPB Q12H [facility]CLUDE 234 BEDS AT [facility] Last Admin: 06/27/17 09:28 Dose: 133 mls/hr Metronidazole (Flagyl) 250 mg in 50 mls @ 100 mls/hr IVPB Q8H [facility]CLUDE 234 BEDS AT [facility] Last Admin: 06/27/17 17:40 Dose: 100 mls/hr Magnesium Sulfate/Dextrose (Magnesium Sulfate 1 Gm/100 Ml D5w) 1 gm in 100 mls @ 100 mls/hr IVPB ONCE ONE Stop: 06/27/17 18:39 Morphine Sulfate (Morphine) 1 mg IVP Q4 PRN PRN Reason: Pain, severe (8-10) Last Admin: 06/27/17 17:35 Dose: 1 mg Ondansetron HCl (Zofran Inj) 4 mg IVP Q6 PRN PRN Reason: Nausea/Vomiting Last Admin: 06/27/17 17:29 Dose: 4 mg Pantoprazole Sodium (Protonix Inj) 40 mg IVP DAILY [facility] 234 BEDS AT [facility] Pneumococcal Polyvalent Vaccine (Pneumovax 23 Vaccine) 0.5 ml IM .ONCE ONE Stop: 06/30/17 14:01 Rosuvastatin Calcium (Crestor) 10 mg PO HS [facility]CLUDE 234 BEDS AT [facility] Saccharomyces Boulardii (Florastor) 250 mg PO BID [facility]CLUDE 234 BEDS AT [facility] Last Admin: 06/27/17 17:40 Dose: Not Given Results - Vital Signs Recent Vital Signs: Last Vital Signs Temp 98.7 F 06/27/17 12:16 Pulse 48 L 06/27/17 12:16 Resp 20 06/27/17 12:16 BP 132/72 06/27/17 12:16 Pulse Ox 98 06/27/17 12:16 - Labs Result Diagrams: 06/27/17 06:32 06/27/17 06:32 Labs: Laboratory Results - last 24 hr 06/26/17 06/26/17 06/26/17 20:26 20:26 20:46 WBC 11.8 H D RBC 4.14 Hgb 11.3 Hct 35.5 MCV 85.8 MCH 27.4 MCHC 31.9 L RDW 14.3 Plt Count 190 MPV 12.7 H Neut % (Auto) 91.9 H Lymph % (Auto) 5.[address] % (Auto) 2.4 Eos % (Auto) 0.0 Baso % (Auto) 0.5 Neut # 10.9 H Lymph # 0.[address] [place] # 0.3 Eos # 0.0 Baso # 0.1 Neutrophils % (Manual) 84 H Band Neutrophils % 3 H Lymphocytes % (Manual) 8 L Monocytes % (Manual) 5 Platelet Estimate Normal Large Platelets Present Microcytosis (manual) Slight PT 11.5 INR 1.0 APTT 22 Sodium 136 Potassium 3.9 Chloride 99 Carbon Dioxide 25 Anion Gap 15 BUN 16 Creatinine 0.6 L Est GFR ( Amer) > 60 Est GFR (Non-Af Amer) > 60 POC Glucose (mg/dL) Random Glucose 155 H Hemoglobin A1c Calcium 9.0 Phosphorus Magnesium Total Bilirubin 1.0 AST 27 ALT 19 Alkaline Phosphatase 72 Total Creatine Kinase CK-MB (Mass) Troponin I 0.4540 H* Total Protein 8.4 H Albumin 4.5 Globulin 3.9 Albumin/Globulin Ratio 1.2 Triglycerides Cholesterol LDL Cholesterol Direct HDL Cholesterol Lipase 36 Thyroxine (T4) TSH 3rd Generation Urine Color Urine Clarity Urine pH Ur Specific [place] Urine Protein Urine Glucose (UA) Urine Ketones Urine Blood Urine Nitrate Urine Bilirubin Urine Urobilinogen Ur Leukocyte Esterase Urine RBC (Auto) 06/26/17 06/26/17 06/26/17 22:45 23:34 23:34 WBC RBC Hgb Hct MCV MCH MCHC RDW Plt Count MPV Neut % (Auto) Lymph % (Auto) [place] % (Auto) Eos % (Auto) Baso % (Auto) Neut # Lymph # [place] # Eos # Baso # Neutrophils % (Manual) Band Neutrophils % Lymphocytes % (Manual) Monocytes % (Manual) Platelet Estimate Large Platelets Microcytosis (manual) PT INR APTT Sodium Potassium Chloride Carbon Dioxide Anion Gap BUN Creatinine Est GFR ( Amer) Est GFR (Non-Af Amer) POC Glucose (mg/dL) Random Glucose Hemoglobin A1c 5.3 Calcium Phosphorus Magnesium Total Bilirubin AST ALT Alkaline Phosphatase Total Creatine Kinase CK-MB (Mass) Troponin I Total Protein Albumin Globulin Albumin/Globulin Ratio Triglycerides Cholesterol LDL Cholesterol Direct HDL Cholesterol Lipase Thyroxine (T4) 10.5 TSH 3rd Generation 0.77 Urine Color Straw Urine Clarity Clear Urine pH 7.0 Ur Specific [place] 1.043 H Urine Protein 1+ H Urine Glucose (UA) 1+ Urine Ketones Trace Urine Blood Negative Urine Nitrate Negative Urine Bilirubin Negative Urine Urobilinogen Normal Ur Leukocyte Esterase Neg Urine RBC (Auto) 1 06/27/17 06/27/17 06/27/17 06:32 06:32 06:32 WBC 8.9 RBC 3.58 L Hgb 10.1 L Hct 30.9 L MCV 86.2 MCH 28.2 MCHC 32.7 L RDW 14.0 Plt Count 142 MPV 13.5 H Neut % (Auto) 80.4 H Lymph % (Auto) 13.[address] [place] % (Auto) 6.2 Eos % (Auto) 0.0 Baso % (Auto) 0.2 Neut # 7.2 H Lymph # 1.2 [place] # 0.5 Eos # 0.0 Baso # 0.0 Neutrophils % (Manual) Band Neutrophils % Lymphocytes % (Manual) Monocytes % (Manual) Platelet Estimate Large Platelets Microcytosis (manual) PT INR APTT Sodium 135 Potassium 4.0 Chloride 101 Carbon Dioxide 29 Anion Gap 8 L BUN 14 Creatinine 0.8 Est GFR ( Amer) > 60 Est GFR (Non-Af Amer) > 60 POC Glucose (mg/dL) Random Glucose 101 Hemoglobin A1c Calcium 8.4 L Phosphorus 3.6 Magnesium 1.6 Total Bilirubin 1.2 AST 31 ALT 20 Alkaline Phosphatase 57 Total Creatine Kinase 231 H CK-MB (Mass) 8.06 H Troponin I 1.5500 H* Total Protein 7.1 Albumin 3.7 Globulin 3.3 Albumin/Globulin Ratio 1.1 Triglycerides 77 D Cholesterol 179 LDL Cholesterol Direct 105 HDL Cholesterol 40 Lipase Thyroxine (T4) TSH 3rd Generation Urine Color Urine Clarity Urine pH Ur Specific [place] Urine Protein Urine Glucose (UA) Urine Ketones Urine Blood Urine Nitrate Urine Bilirubin Urine Urobilinogen Ur Leukocyte Esterase Urine RBC (Auto) 06/27/17 06/27/17 11:54 17:19 WBC RBC Hgb Hct MCV MCH MCHC RDW Plt Count MPV Neut % (Auto) Lymph % (Auto) [place] % (Auto) Eos % (Auto) Baso % (Auto) Neut # Lymph # [place] # Eos # Baso # Neutrophils % (Manual) Band Neutrophils % Lymphocytes % (Manual) Monocytes % (Manual) Platelet Estimate Large Platelets Microcytosis (manual) PT INR APTT Sodium Potassium Chloride Carbon Dioxide Anion Gap BUN Creatinine Est GFR ( Amer) Est GFR (Non-Af Amer) POC Glucose (mg/dL) 95 Random Glucose Hemoglobin A1c Calcium Phosphorus Magnesium Total Bilirubin AST ALT Alkaline Phosphatase Total Creatine Kinase 281 H CK-MB (Mass) 7.44 H Troponin I 1.3200 H* Total Protein Albumin Globulin Albumin/Globulin Ratio Triglycerides Cholesterol LDL Cholesterol Direct HDL Cholesterol Lipase Thyroxine (T4) TSH 3rd Generation Urine Color Urine Clarity Urine pH Ur Specific [place] Urine Protein Urine Glucose (UA) Urine Ketones Urine Blood Urine Nitrate Urine Bilirubin Urine Urobilinogen Ur Leukocyte Esterase Urine RBC (Auto) Attending/Attestation - Attestation I have personally seen and examined this patient.: Yes I have fully participated in the care of the patient.: Yes I have reviewed all pertinent clinical information: Yes Notes (Text): 06/27/17 18:19 patient seen and examined Status post cardiac cath with normal coronaries, ejection fraction 55% Status post transvenous pacemaker insertion for bradycardia ICU monitoring Continue treatment as per cardiology Antiemetic
--- NOTE | 2017-06-27 23:58 | CARD ---
APPROVED REPORT EKG Measurement Heart [id number] <Conclusion> Normal sinus rhythm Minimal voltage criteria for LVH, may be normal variant Nonspecific T wave abnormality Prolonged QT Abnormal ECG
[2017-06-28] MEDS: metroNIDAZOLE IV 250mg/50 ml 250 MG/50 ML BAG IVPB SCH ×2 (02:20→09:34)
[2017-06-28 06:45] LABS: BASO % 0.3 % (0.0-2.0); EOS % 0.1 % (0.0-4.0); HEMOGLOBIN 11.1 g/dL (11.0-16.0); LYMPH # 1.4 K/uL (1.0-4.3); LYMPH % 10.9 % (20.0-40.0); MEAN CELL VOLUME 85.4 fL (81.0-99.0); MEAN CORPUSCULAR HEMOGLOBIN 27.7 pg (27.0-31.0); MEAN CORPUSCULAR HGB CONC 32.5 g/dL (33.0-37.0); MEAN PLATELET VOLUME 12.9 fL (7.2-11.7); MONO % 7.7 % (0.0-10.0); NEUT # 10.6 K/uL (1.8-7.0); RBC 3.99 Mil/uL (3.80-5.20); RED CELL DISTRIBUTION WIDTH 13.8 % (11.5-14.5); WHITE BLOOD COUNT 13.1 K/uL (4.8-10.8)
[2017-06-28 07:04] LABS: ALBUMIN 3.9 g/dL (3.5-5.0); ALT/SGPT 19 U/L (9-52); AST/SGOT 52 U/L (14-36); BLOOD UREA NITROGEN 11 mg/dL (7-17); CALCIUM 8.3 mg/dl (8.6-10.4); GFR AFRICAN-AMERICAN > 60; GFR NON-AFRICAN AMERICAN > 60; MAGNESIUM 2.1 mg/dL (1.6-2.3)
[2017-06-28] MEDS: Saccharomyces Boulardi 250 mg Cap PO SCH ×2 (09:33→17:07)
[2017-06-28] MEDS: Enoxaparin 40 mg Syringe SC SCH (09:33)
--- NOTE | 2017-06-28 11:59 | CP.PCM.PN ---
Subjective - Date & Time of Evaluation Date of Evaluation: 06/28/17 Time of Evaluation: 10:10 - Subjective Subjective: PGY-[address] Gillette. Overnight the patient's BP was elevated secondary to pain in the left upper quadrant, the BP was normal after administration of morphine. Today the patient did not have any complaints. She denied chest pain or palpitations. Her nausea has improved and she is tolerating water and apple juice. Objective - Vital Signs/Intake and Output Vital Signs (last 24 hours): Temp Pulse Resp BP Pulse Ox 98.8 F 62 17 118/72 98 06/28/17 04:00 06/28/17 08:00 06/28/17 06:10 06/28/17 08:00 06/28/17 08:00 Intake and Output: 06/28/17 06/28/17 06:59 18:59 Intake Total 1130 200 Output Total 800 Balance 330 200 - Medications Medications: Current Medications Acetaminophen (Tylenol 325mg Tab) 650 mg PO Q6 PRN PRN Reason: Fever >100.4 F Last Admin: 06/26/17 23:27 Dose: 650 mg Aspirin (Aspirin Chewable) 81 mg PO DAILY [facility] Last Admin: 06/28/17 09:33 Dose: 81 mg Enoxaparin Sodium (Lovenox) 40 mg SC DAILY [facility] Last Admin: 06/28/17 09:33 Dose: 40 mg Sodium Chloride (Sodium Chloride 0.9%) 1,000 mls @ 100 mls/hr IV .Q10H [facility] Last Admin: 06/27/17 19:02 Dose: Not Given Metronidazole (Flagyl) 250 mg in 50 mls @ 100 mls/hr IVPB Q8H [facility] Last Admin: 06/28/17 09:34 Dose: 100 mls/hr Ceftriaxone Sodium 1 gm/ (Sodium Chloride) 50 mls @ 100 mls/hr IVPB DAILY [facility] Last Admin: 06/28/17 11:01 Dose: 100 mls/hr Morphine Sulfate (Morphine) 2 mg IVP Q4 PRN PRN Reason: Pain, moderate (4-7) Last Admin: 06/28/17 00:05 Dose: 2 mg Ondansetron HCl (Zofran Inj) 4 mg IVP Q6 PRN PRN Reason: Nausea/Vomiting Last Admin: 06/27/17 23:02 Dose: 4 mg Pantoprazole Sodium (Protonix Inj) 40 mg IVP DAILY [facility] Last Admin: 06/28/17 09:33 Dose: 40 mg Pneumococcal Polyvalent Vaccine (Pneumovax 23 Vaccine) 0.5 ml IM .ONCE ONE Stop: 06/30/17 14:01 Rosuvastatin Calcium (Crestor) 10 mg PO HS [facility] Last Admin: 06/27/17 21:37 Dose: Not Given Saccharomyces Boulardii (Florastor) 250 mg PO BID [facility] Last Admin: 06/28/17 09:33 Dose: 250 mg - Labs Labs: 06/28/17 06:27 06/28/17 06:30 PT 11.5 SECONDS (9.7-12.2) 06/26/17 20:46 INR 1.0 06/26/17 20:46 APTT 22 SECONDS (21-34) 06/26/17 20:46 - Constitutional Appears: Well, No Acute Distress - Head Exam Head Exam: ATRAUMATIC, NORMAL INSPECTION - Eye Exam Eye Exam: EOMI - ENT Exam ENT Exam: Mucous Membranes Moist - Neck Exam Neck Exam: Full ROM - Respiratory Exam Respiratory Exam: Clear to Ausculation Bilateral, NORMAL BREATHING PATTERN. absent: Rales, Rhonchi, Wheezes - Cardiovascular Exam Cardiovascular Exam: REGULAR RHYTHM. absent: Irregular Rhythm, JVD, Murmur - GI/Abdominal Exam GI & Abdominal Exam: Soft, Normal Bowel Sounds. absent: Tenderness - Extremities Exam Additional comments: right femoral catheter insertion site well covered - d/c/i - Neurological Exam Neurological Exam: Alert, Oriented x3 - Skin Skin Exam: Intact, Normal Color, Warm Assessment and Plan (1) NSTEMI (non-ST elevated myocardial infarction) Assessment & Plan: Likely secondary to myocarditis Elevated Troponins on admission Patient is s/p cardiac cath 06/27/17 - w/ normal coronaries and EF of 55% Status: Acute (2) Prolonged Q-T interval on ECG Assessment & Plan: QTc on admission 06/26/17 -> 540 Latest EKG reviewed QTc improved to normal 470 Keep electrolytes within normal levels Status: Acute (3) Symptomatic bradycardia Assessment & Plan: s/p TVP placement 06/27/17 Pacemaker set to HR 60 and working properly food safety field specialist, Dr Snider, to see patient as well Plan is to remove TVP 06/29/17 Monitor on tele in ICU Status: Acute
--- NOTE | 2017-06-28 12:16 | CP.PCM.CON ---
History of Present Illness - History of Present Illness History of Present Illness: EP consult Re: dizziness, bradycardia and Prolonged Qtc Chart imaging labs reviewed Seen and examined 61 year old presented with nausea diarrhea and abdominal pain elevated serum troponins and prolonged Qtc She had an unremarkable cardiac cath; due to sinus bradycardia a temporary transvenous pacemaker placed She gives a long history of dizziness and episodes of diaphoresis and loss of consciousness (last a month back while walking); she has not been work up in the past; she denied seizures headache low blood sugar setting palpitations chest pain dyspnea Past medical history significant for breast carcinoma (remote surgery/radiation) Medications: none Smokes; occasional alcohol; denied drug abuse Family: no history of deafness sudden syncope seizures Exam: Afebrile Vitals noted Normal venous pressures Clear lungs ?PMI Normal heart sounds Abdomen soft deep tenderness left lower abdomen Femoral transvenous catheter in situ No edema EKG: sinus; Qtc 540/470ms Labs: troponin 0.45 Magnesium 1.6 K 4.0 Calcium 8.3 (albumin 3.7) Past Patient History - Past Medical History & Family History Past Medical History?: Yes - Past Social History Smoking Status: Never Smoked - CARDIAC Hx Cardiac Disorders: No - PULMONARY Hx Respiratory Disorders: No - NEUROLOGICAL Hx Neurological Disorder: No - HEENT Hx HEENT Problems: No - RENAL Hx Chronic Kidney Disease: No - ENDOCRINE/METABOLIC Hx Endocrine Disorders: No - HEMATOLOGICAL/ONCOLOGICAL Hx Blood Disorders: No - INTEGUMENTARY Hx Dermatological Problems: No - MUSCULOSKELETAL/RHEUMATOLOGICAL Hx Musculoskeletal Disorders: No Hx Falls: No - GASTROINTESTINAL Hx Gastrointestinal Disorders: No - GENITOURINARY/GYNECOLOGICAL Hx Genitourinary Disorders: No Other/Comment: Breast Ca 1994-in remission - PSYCHIATRIC Hx Psychophysiologic Disorder: No Hx Substance Use: Yes (Occ Marijuana use) - SURGICAL HISTORY Hx Surgeries: Yes Other/Comment: RIGHT BREAST LUMPECTOMY 1994 - ANESTHESIA Hx Anesthesia: Yes Hx Anesthesia Reactions: No Hx Malignant Hyperthermia: No Has any member of the family had a problem w/ anesthesia?: No Meds Allergies/Adverse Reactions: Allergies Allergy/AdvReac Type Severity Reaction Status Date / Time No Known Allergies Allergy Unverified 05/10/13 13:48 - Medications Medications: Current Medications Acetaminophen (Tylenol 325mg Tab) 650 mg PO Q6 PRN PRN Reason: Fever >100.4 F Last Admin: 06/26/17 23:27 Dose: 650 mg Aspirin (Aspirin Chewable) 81 mg PO DAILY [facility] Last Admin: 06/28/17 09:33 Dose: 81 mg Enoxaparin Sodium (Lovenox) 40 mg SC DAILY [facility] Last Admin: 06/28/17 09:33 Dose: 40 mg Sodium Chloride (Sodium Chloride 0.9%) 1,000 mls @ 100 mls/hr IV .Q10H [facility] Last Admin: 06/27/17 19:02 Dose: Not Given Metronidazole (Flagyl) 250 mg in 50 mls @ 100 mls/hr IVPB Q8H [facility] Last Admin: 06/28/17 09:34 Dose: 100 mls/hr Ceftriaxone Sodium 1 gm/ (Sodium Chloride) 50 mls @ 100 mls/hr IVPB DAILY [facility] Last Admin: 06/28/17 11:01 Dose: 100 mls/hr Morphine Sulfate (Morphine) 2 mg IVP Q4 PRN PRN Reason: Pain, moderate (4-7) Last Admin: 06/28/17 00:05 Dose: 2 mg Ondansetron HCl (Zofran Inj) 4 mg IVP Q6 PRN PRN Reason: Nausea/Vomiting Last Admin: 06/27/17 23:02 Dose: 4 mg Pantoprazole Sodium (Protonix Inj) 40 mg IVP DAILY [facility] Last Admin: 06/28/17 09:33 Dose: 40 mg Pneumococcal Polyvalent Vaccine (Pneumovax 23 Vaccine) 0.5 ml IM .ONCE ONE Stop: 06/30/17 14:01 Rosuvastatin Calcium (Crestor) 10 mg PO [facility] Last Admin: 06/27/17 21:37 Dose: Not Given Saccharomyces Boulardii (Florastor) 250 mg PO BID [facility] Last Admin: 06/28/17 09:33 Dose: 250 mg Results - Vital Signs Recent Vital Signs: Last Vital Signs Temp 98.8 F 06/28/17 04:00 Pulse 62 06/28/17 08:00 Resp 17 06/28/17 06:10 BP 118/72 06/28/17 08:00 Pulse Ox 98 06/28/17 08:00 - Labs Result Diagrams: 06/28/17 06:27 06/28/17 06:30 Labs: Laboratory Results - last 24 hr 06/27/17 06/27/17 06/28/17 11:54 17:19 06:27 WBC 13.1 H RBC 3.99 Hgb 11.1 Hct 34.1 MCV 85.4 MCH 27.7 MCHC 32.5 L RDW 13.8 Plt Count 157 MPV 12.9 H Neut % (Auto) 81.0 H Lymph % (Auto) 10.9 L [place] % (Auto) 7.7 Eos % (Auto) 0.1 Baso % (Auto) 0.3 Neut # 10.6 H Lymph # 1.4 [place] # 1.0 H Eos # 0.0 Baso # 0.0 Sodium Potassium Chloride Carbon Dioxide Anion Gap BUN Creatinine Est GFR ( Amer) Est GFR (Non-Af Amer) POC Glucose (mg/dL) 95 Random Glucose Calcium Phosphorus Magnesium Total Bilirubin AST ALT Alkaline Phosphatase Total Creatine Kinase 281 H CK-MB (Mass) 7.44 H Troponin I 1.3200 H* Total Protein Albumin Globulin Albumin/Globulin Ratio 06/28/17 06:30 WBC RBC Hgb Hct MCV MCH MCHC RDW Plt Count MPV Neut % (Auto) Lymph % (Auto) [place] % (Auto) Eos % (Auto) Baso % (Auto) Neut # Lymph # [place] # Eos # Baso # Sodium 132 Potassium 3.9 Chloride 98 Carbon Dioxide 26 Anion Gap 12 BUN 11 Creatinine 0.7 Est GFR ( Amer) > 60 Est GFR (Non-Af Amer) > 60 POC Glucose (mg/dL) Random Glucose 99 Calcium 8.3 L Phosphorus 3.2 Magnesium 2.1 Total Bilirubin 1.3 AST 52 H D ALT 19 Alkaline Phosphatase 72 Total Creatine Kinase CK-MB (Mass) Troponin I Total Protein 7.6 Albumin 3.9 Globulin 3.7 Albumin/Globulin Ratio 1.0 Assessment & Plan - Assessment and Plan (Free Text) Assessment: Ms. Peña has prolonged varying QTc intervals likely acquired albeit the trigger is unclear not discounting the mild hypocalcemia (usually creates long ST segment); cannot exclude a forme fruste of the congenital long Qtc syndrome She does have a long history of dizziness and transient loss of consciousness; the history does suggest a hemodynamic mechanims (Cf. seizures) however the correlation with bradycardia and or long Qtc although plausible is not definitive and entails an extensive work up including excluding a neurological basis obtaining old electrocardiograms tilt table study loop recorder implant EP study/QT stress test and genetic studies; she seems to be reticent for any procedures In addition: There is a need for awareness and avoidance of long Qt medications and electrolytes and screening the family
--- NOTE | 2017-06-28 14:13 | CP.PCM.CON ---
Past Patient History - Past Medical History & Family History Past Medical History?: Yes - Past Social History Smoking Status: Never Smoked - CARDIAC Hx Cardiac Disorders: No - PULMONARY Hx Respiratory Disorders: No - NEUROLOGICAL Hx Neurological Disorder: No - HEENT Hx HEENT Problems: No - RENAL Hx Chronic Kidney Disease: No - ENDOCRINE/METABOLIC Hx Endocrine Disorders: No - HEMATOLOGICAL/ONCOLOGICAL Hx Blood Disorders: No - INTEGUMENTARY Hx Dermatological Problems: No - MUSCULOSKELETAL/RHEUMATOLOGICAL Hx Musculoskeletal Disorders: No Hx Falls: No - GASTROINTESTINAL Hx Gastrointestinal Disorders: No - GENITOURINARY/GYNECOLOGICAL Hx Genitourinary Disorders: No Other/Comment: Breast Ca 1994-in remission - PSYCHIATRIC Hx Psychophysiologic Disorder: No Hx Substance Use: Yes (Occ Marijuana use) - SURGICAL HISTORY Hx Surgeries: Yes Other/Comment: RIGHT BREAST LUMPECTOMY 1994 - ANESTHESIA Hx Anesthesia: Yes Hx Anesthesia Reactions: No Hx Malignant Hyperthermia: No Has any member of the family had a problem w/ anesthesia?: No Meds Allergies/Adverse Reactions: Allergies Allergy/AdvReac Type Severity Reaction Status Date / Time No Known Allergies Allergy Unverified 05/10/13 13:48 - Medications Medications: Current Medications Acetaminophen (Tylenol 325mg Tab) 650 mg PO Q6 PRN PRN Reason: Fever >100.4 F Last Admin: 06/26/17 23:27 Dose: 650 mg Aspirin (Aspirin Chewable) 81 mg PO DAILY [facility] Last Admin: 06/28/17 09:33 Dose: 81 mg Enoxaparin Sodium (Lovenox) 40 mg SC DAILY [facility] Last Admin: 06/28/17 09:33 Dose: 40 mg Sodium Chloride (Sodium Chloride 0.9%) 1,000 mls @ 100 mls/hr IV .Q10H [facility] Last Admin: 06/27/17 19:02 Dose: Not Given Metronidazole (Flagyl) 250 mg in 50 mls @ 100 mls/hr IVPB Q8H [facility] Last Admin: 06/28/17 09:34 Dose: 100 mls/hr Ceftriaxone Sodium 1 gm/ (Sodium Chloride) 50 mls @ 100 mls/hr IVPB DAILY [facility] Last Admin: 06/28/17 11:01 Dose: 100 mls/hr Morphine Sulfate (Morphine) 2 mg IVP Q4 PRN PRN Reason: Pain, moderate (4-7) Last Admin: 06/28/17 00:05 Dose: 2 mg Ondansetron HCl (Zofran Inj) 4 mg IVP Q6 PRN PRN Reason: Nausea/Vomiting Last Admin: 06/27/17 23:02 Dose: 4 mg Pantoprazole Sodium (Protonix Inj) 40 mg IVP DAILY [facility] Last Admin: 06/28/17 09:33 Dose: 40 mg Pneumococcal Polyvalent Vaccine (Pneumovax 23 Vaccine) 0.5 ml IM .ONCE ONE Stop: 06/30/17 14:01 Rosuvastatin Calcium (Crestor) 10 mg PO HS [facility] Last Admin: 06/27/17 21:37 Dose: Not Given Saccharomyces Boulardii (Florastor) 250 mg PO BID [facility] Last Admin: 06/28/17 09:33 Dose: 250 mg Results - Vital Signs Recent Vital Signs: Last Vital Signs Temp 98.7 F 06/28/17 12:00 Pulse 60 06/28/17 12:01 Resp 17 06/28/17 06:10 BP 112/56 L 06/28/17 12:01 Pulse Ox 96 06/28/17 11:00 - Labs Result Diagrams: 06/28/17 06:27 06/28/17 06:30 Labs: Laboratory Results - last 24 hr 06/27/17 06/28/17 06/28/17 17:19 06:27 06:30 WBC 13.1 H RBC 3.99 Hgb 11.1 Hct 34.1 MCV 85.4 MCH 27.7 MCHC 32.5 L RDW 13.8 Plt Count 157 MPV 12.9 H Neut % (Auto) 81.0 H Lymph % (Auto) 10.9 L [place] % (Auto) 7.7 Eos % (Auto) 0.1 Baso % (Auto) 0.3 Neut # 10.6 H Lymph # 1.4 [place] # 1.0 H Eos # 0.0 Baso # 0.0 Sodium 132 Potassium 3.9 Chloride 98 Carbon Dioxide 26 Anion Gap 12 BUN 11 Creatinine 0.7 Est GFR ( Amer) > 60 Est GFR (Non-Af Amer) > 60 POC Glucose (mg/dL) 95 Random Glucose 99 Calcium 8.3 L Phosphorus 3.2 Magnesium 2.1 Total Bilirubin 1.3 AST 52 H D ALT 19 Alkaline Phosphatase 72 Total Protein 7.6 Albumin 3.9 Globulin 3.7 Albumin/Globulin Ratio 1.0 Assessment & Plan - Assessment and Plan (Free Text) Assessment: 61 F s/p TVP with Long QT syndrome Plan: Cardio: Cards ([facility] [facility]) D/C Plavix IVF Aspirin 81 PO Daily Crestor 10 PO HS Plan to remove TVP tomorrow GI: Abdominal CT shows findings compatible w/ acute diverticulitis of sigmoid colon. Flagyl 250 IV Q8 Ciprofloxacin d/c because it can prolong QT. Rocephin 1 IV Daily Prophylaxis: DVT: Heparin SC Q8. SCDs GI: Protonix 40 mg IVP Daily
--- NOTE | 2017-06-28 14:22 | CP.CCUPN ---
<Tobin Mckenzie - Last Filed: 06/28/17 14:18> CCU Subjective - Physician Review Events Since Last Encounter (Free Text): 06/28/17 14:20 Patient seen and examined at bedside. emesis at 2 am, tolerating clear liquids seen by cardio possibility of long QT discussed in length. Advised to stay away from long QT meds No belly pain at this time CCU Objective - Vital Signs / Intake & Output Vital Signs (Last 4 hours): Vital Signs Temp Pulse BP Pulse Ox 06/28/17 12:01 60 112/56 L 06/28/17 12:00 98.7 F 06/28/17 11:00 64 129/72 96 Intake and Output (Last 8hrs): Intake & Output 06/27/17 06/28/17 06/28/17 22:59 06:59 14:59 Intake Total 600 730 750 Output Total 50 800 200 Balance 550 -70 550 Weight 159 lb Intake: Intake, IV Amount 600 250 200 Left Antecubital 600 250 200 Oral 0 480 550 Output: Urine 0 800 200 Urine, Voided 0 800 200 Emesis 50 Other: # Voids Urine, Voided 1 # Bowel Movements 0 - Physical Exam Head: Positive for: Atraumatic, Normocephalic Pupils: Positive for: PERRL Extroacular Muscles: Positive for: EOMI Conjunctiva: Positive for: Normal Mouth: Positive for: Moist Mucous Membranes Neck: Positive for: Normal Range of Motion Respiratory/Chest: Positive for: Clear to Auscultation Cardiovascular: Positive for: Regular Rate and Rhythm Abdomen: Positive for: Normal Bowel Sounds. Negative for: Tenderness, Distention, Peritoneal Signs Upper Extremity: Positive for: Normal Inspection Neurological: Positive for: GCS=15, CN II-XII Intact Skin: Positive for: Warm, Rashes Psychiatric: Positive for: Alert, Oriented x 3 - Medications Active Medications: Active Medications Generic Name Dose Route Start Last Admin Trade Name Freq PRN Reason Stop Dose Admin Acetaminophen 650 mg 06/26/17 22:57 06/26/17 23:27 Tylenol 325mg Tab PO 650 mg Q6 PRN Administration Fever >100.4 F Aspirin 81 mg 06/27/17 10:00 06/28/17 09:33 Aspirin Chewable PO 81 mg DAILY [facility] Administration Enoxaparin Sodium 40 mg 06/28/17 10:00 06/28/17 09:33 Lovenox SC 40 mg DAILY [facility] Administration Sodium Chloride 1,000 mls @ 100 mls/hr 06/26/17 23:00 06/27/17 19:02 Sodium Chloride 0.9% IV Not Given .Q10H [facility] Metronidazole 250 mg in 50 mls @ 100 mls/hr 06/27/17 10:00 06/28/17 09:34 Flagyl IVPB 100 mls/hr Q8H [facility] Administration Ceftriaxone Sodium 1 gm/ 50 mls @ 100 mls/hr 06/28/17 10:00 06/28/17 11:01 Sodium Chloride IVPB 100 mls/hr DAILY [facility] Administration Morphine Sulfate 2 mg 06/27/17 20:07 06/28/17 00:05 Morphine IVP 2 mg Q4 PRN Administration Pain, moderate (4-7) Ondansetron HCl 4 mg 06/26/17 22:57 06/27/17 23:02 Zofran Inj IVP 4 mg Q6 PRN Administration Nausea/Vomiting Pantoprazole Sodium 40 mg 06/28/17 10:00 06/28/17 09:33 Protonix Inj IVP 40 mg DAILY [facility] Administration Pneumococcal Polyvalent Vaccine 0.5 ml 06/30/17 14:00 Pneumovax 23 Vaccine IM 06/30/17 14:01 .ONCE ONE Rosuvastatin Calcium 10 mg 06/27/17 22:00 06/27/17 21:37 Crestor PO Not Given [facility] Saccharomyces Boulardii 250 mg 06/27/17 08:00 06/28/17 09:33 Florastor PO 250 mg BID [facility] Administration - Patient Studies Lab Studies: Lab Studies 06/28/17 06/28/17 06/27/17 Range/Units 06:30 06:27 17:19 WBC 13.1 H (4.8-10.8) K/uL RBC 3.99 (3.80-5.20) Mil/uL Hgb 11.1 (11.0-16.0) g/dL Hct 34.1 (34.0-47.0) % MCV 85.4 (81.0-99.0) fL MCH 27.7 (27.0-31.0) pg MCHC 32.5 L (33.0-37.0) g/dL RDW 13.8 (11.5-14.5) % Plt Count 157 (130-400) K/uL MPV 12.9 H (7.2-11.7) fL Neut % (Auto) 81.0 H (50.0-75.0) % Lymph % (Auto) 10.9 L (20.0-40.0) % [place] % (Auto) 7.7 (0.0-10.0) % Eos % (Auto) 0.1 (0.0-4.0) % Baso % (Auto) 0.3 (0.0-2.0) % Neut # 10.6 H (1.8-7.0) K/uL Lymph # 1.4 (1.0-4.3) K/uL [place] # 1.0 H (0.0-0.8) K/uL Eos # 0.0 (0.0-0.7) K/uL Baso # 0.0 (0.0-0.2) K/uL Sodium 132 (132-148) mmol/L Potassium 3.9 (3.6-5.2) mmol/L Chloride 98 (98-107) mmol/L Carbon Dioxide 26 (22-30) mmol/L Anion Gap 12 (10-20) BUN 11 (7-17) mg/dL Creatinine 0.7 (0.7-1.2) mg/dL Est GFR ( Amer) > 60 Est GFR (Non-Af Amer) > 60 POC Glucose (mg/dL) 95 (65-110) mg/dL Random Glucose 99 (65-105) mg/dL Calcium 8.3 L (8.6-10.4) mg/dl Phosphorus 3.2 (2.5-4.5) mg/dL Magnesium 2.1 (1.6-2.3) mg/dL Total Bilirubin 1.3 (0.2-1.3) mg/dL AST 52 H D (14-36) U/L ALT 19 (9-52) U/L Alkaline Phosphatase 72 (38-126) U/L Total Protein 7.6 (6.3-8.3) g/dL Albumin 3.9 (3.5-5.0) g/dL Globulin 3.7 (2.2-3.9) gm/dL Albumin/Globulin Ratio 1.0 (1.0-2.1) Laboratory Results - last 24 hr 06/27/17 06/28/17 06/28/17 17:19 06:27 06:30 WBC 13.1 H RBC 3.99 Hgb 11.1 Hct 34.1 MCV 85.4 MCH 27.7 MCHC 32.5 L RDW 13.8 Plt Count 157 MPV 12.9 H Neut % (Auto) 81.0 H Lymph % (Auto) 10.9 L [place] % (Auto) 7.7 Eos % (Auto) 0.1 Baso % (Auto) 0.3 Neut # 10.6 H Lymph # 1.4 [place] # 1.0 H Eos # 0.0 Baso # 0.0 Sodium 132 Potassium 3.9 Chloride 98 Carbon Dioxide 26 Anion Gap 12 BUN 11 Creatinine 0.7 Est GFR ( Amer) > 60 Est GFR (Non-Af Amer) > 60 POC Glucose (mg/dL) 95 Random Glucose 99 Calcium 8.3 L Phosphorus 3.2 Magnesium 2.1 Total Bilirubin 1.3 AST 52 H D ALT 19 Alkaline Phosphatase 72 Total Protein 7.6 Albumin 3.9 Globulin 3.7 Albumin/Globulin Ratio 1.0 EKG/Cardiology Studies: Cardiology / EKG Studies 06/28/17 10:06 EKG [ELECTROCARDIOGRAM] Stat Comment: Mode Of Transportation: Reason For Exam: s/p cath and temp pacemaker Critical Care Progress Note - Nutrition Nutrition: Nutrition Category Date Time Status Liquid Diet [DIET] Diets 06/27/17 Dinner Active Assessment/Plan - Assessment and Plan (Free Text) Assessment: 61F s/p TVP, Long QT syndrome Plan: Cardio: Cards ([facility] [facility]) D/C Plavix IVF Aspirin 81 PO Daily Crestor 10 PO HS Plan to remove TVP tomorrow GI: Abdominal CT shows findings compatible w/ acute diverticulitis of sigmoid colon. Flagyl 250 IV Q8 Ciprofloxacin d/c because it can prolong QT. Rocephin 1 IV Daily Prophylaxis: DVT: Heparin SC Q8. SCDs GI: Protonix 40 mg IVP Daily <Tunde Aguila S - Last Filed: 06/28/17 17:02> CCU Objective - Vital Signs / Intake & Output Vital Signs (Last 4 hours): Vital Signs Temp Pulse Resp BP Pulse Ox 06/28/17 16:00 98.4 F 49 L 142/71 93 L 06/28/17 15:35 49 L 138/64 100 06/28/17 15:00 53 L 14 122/51 L 100 06/28/17 13:00 50 L 124/58 L 99 Intake and Output (Last 8hrs): Intake & Output 06/28/17 06/28/17 06/28/17 06:59 14:59 22:59 Intake Total 730 750 200 Output Total 800 350 300 Balance -70 400 -100 Intake: Intake, IV Amount 250 200 Left Antecubital 250 200 Oral 480 550 200 Output: Urine 800 350 300 Urine, Voided 800 350 300 Other: # Voids Urine, Voided 1 - Medications Active Medications: Active Medications Generic Name Dose Route Start Last Admin Trade Name Freq PRN Reason Stop Dose Admin Acetaminophen 650 mg 06/26/17 22:57 06/26/17 23:27 Tylenol 325mg Tab PO 650 mg Q6 PRN Administration Fever >100.4 F Aspirin 81 mg 06/27/17 10:00 06/28/17 09:33 Aspirin Chewable PO 81 mg DAILY [facility] Administration Enoxaparin Sodium 40 mg 06/28/17 10:00 06/28/17 09:33 Lovenox SC 40 mg DAILY [facility] Administration Sodium Chloride 1,000 mls @ 100 mls/hr 06/26/17 23:00 06/27/17 19:02 Sodium Chloride 0.9% IV Not Given .Q10H [facility] Ceftriaxone Sodium 1 gm/ 50 mls @ 100 mls/hr 06/28/17 10:00 06/28/17 11:01 Sodium Chloride IVPB 100 mls/hr DAILY [facility] Administration Metronidazole 250 mg 06/28/17 16:30 Flagyl PO Q8H [facility] Morphine Sulfate 2 mg 06/27/17 20:07 06/28/17 00:05 Morphine IVP 2 mg Q4 PRN Administration Pain, moderate (4-7) Ondansetron HCl 4 mg 06/26/17 22:57 06/27/17 23:02 Zofran Inj IVP 4 mg Q6 PRN Administration Nausea/Vomiting Pantoprazole Sodium 40 mg 06/28/17 10:00 06/28/17 09:33 Protonix Inj IVP 40 mg DAILY [facility] Administration Pneumococcal Polyvalent Vaccine 0.5 ml 01/19/18 14:00 Pneumovax 23 Vaccine IM 06/30/17 14:01 .ONCE ONE Rosuvastatin Calcium 10 mg 06/27/17 22:00 06/27/17 21:37 Crestor PO Not Given HS [facility] Saccharomyces Boulardii 250 mg 06/27/17 08:00 06/28/17 09:33 Florastor PO 250 mg BID [facility] Administration - Patient Studies Lab Studies: Lab Studies 06/28/17 06/28/17 06/27/17 Range/Units 06:30 06:27 17:19 WBC 13.1 H (4.8-10.8) K/uL RBC 3.99 (3.80-5.20) Mil/uL Hgb 11.1 (11.0-16.0) g/dL Hct 34.1 (34.0-47.0) % MCV 85.4 (81.0-99.0) fL MCH 27.7 (27.0-31.0) pg MCHC 32.5 L (33.0-37.0) g/dL RDW 13.8 (11.5-14.5) % Plt Count 157 (130-400) K/uL MPV 12.9 H (7.2-11.7) fL Neut % (Auto) 81.0 H (50.0-75.0) % Lymph % (Auto) 10.9 L (20.0-40.0) % [place] % (Auto) 7.7 (0.0-10.0) % Eos % (Auto) 0.1 (0.0-4.0) % Baso % (Auto) 0.3 (0.0-2.0) % Neut # 10.6 H (1.8-7.0) K/uL Lymph # 1.4 (1.0-4.3) K/uL [place] # 1.0 H (0.0-0.8) K/uL Eos # 0.0 (0.0-0.7) K/uL Baso # 0.0 (0.0-0.2) K/uL Sodium 132 (132-148) mmol/L Potassium 3.9 (3.6-5.2) mmol/L Chloride 98 (98-107) mmol/L Carbon Dioxide 26 (22-30) mmol/L Anion Gap 12 (10-20) BUN 11 (7-17) mg/dL Creatinine 0.7 (0.7-1.2) mg/dL Est GFR ( Amer) > 60 Est GFR (Non-Af Amer) > 60 POC Glucose (mg/dL) 95 (65-110) mg/dL Random Glucose 99 (65-105) mg/dL Calcium 8.3 L (8.6-10.4) mg/dl Phosphorus 3.2 (2.5-4.5) mg/dL Magnesium 2.1 (1.6-2.3) mg/dL Total Bilirubin 1.3 (0.2-1.3) mg/dL AST 52 H D (14-36) U/L ALT 19 (9-52) U/L Alkaline Phosphatase 72 (38-126) U/L Total Protein 7.6 (6.3-8.3) g/dL Albumin 3.9 (3.5-5.0) g/dL Globulin 3.7 (2.2-3.9) gm/dL Albumin/Globulin Ratio 1.0 (1.0-2.1) Laboratory Results - last 24 hr 06/27/17 06/28/17 06/28/17 17:19 06:27 06:30 WBC 13.1 H RBC 3.99 Hgb 11.1 Hct 34.1 MCV 85.4 MCH 27.7 MCHC 32.5 L RDW 13.8 Plt Count 157 MPV 12.9 H Neut % (Auto) 81.0 H Lymph % (Auto) 10.9 L [place] % (Auto) 7.7 Eos % (Auto) 0.1 Baso % (Auto) 0.3 Neut # 10.6 H Lymph # 1.4 [place] # 1.0 H Eos # 0.0 Baso # 0.0 Sodium 132 Potassium 3.9 Chloride 98 Carbon Dioxide 26 Anion Gap 12 BUN 11 Creatinine 0.7 Est GFR ( Amer) > 60 Est GFR (Non-Af Amer) > 60 POC Glucose (mg/dL) 95 Random Glucose 99 Calcium 8.3 L Phosphorus 3.2 Magnesium 2.1 Total Bilirubin 1.3 AST 52 H D ALT 19 Alkaline Phosphatase 72 Total Protein 7.6 Albumin 3.9 Globulin 3.7 Albumin/Globulin Ratio 1.0 EKG/Cardiology Studies: Cardiology / EKG Studies 06/28/17 10:06 EKG [ELECTROCARDIOGRAM] Stat Comment: Mode Of Transportation: Reason For Exam: s/p cath and temp pacemaker Critical Care Progress Note - Nutrition Nutrition: Nutrition Category Date Time Status Liquid Diet [DIET] Diets 06/27/17 Dinner Active Attending/Attestation - Attestation I have personally seen and examined this patient.: Yes I have fully participated in the care of the patient.: Yes I have reviewed all pertinent clinical information: Yes Notes (Text): 06/28/17 17:00 Patient seen and examined in the intensive care unit. Transvenous pacemaker turned off Patient seen by EPS Continue present treatment
--- NOTE | 2017-06-28 14:48 | CP.PCM.PN ---
Subjective - Date & Time of Evaluation Date of Evaluation: 06/28/17 Time of Evaluation: 10:00 - Subjective Subjective: Patient was seen and examined this morning No complain.Has h/o near syncope and dizziness for years.Not evaluated by a [facility]house worker in the past Objective - Vital Signs/Intake and Output Vital Signs (last 24 hours): Temp Pulse Resp BP Pulse Ox 98.7 F 60 17 112/56 L 96 06/28/17 12:00 06/28/17 12:01 06/28/17 06:10 06/28/17 12:01 06/28/17 11:00 Intake and Output: 06/28/17 06/28/17 06:59 18:59 Intake Total 1130 750 Output Total 800 200 Balance 330 550 - Medications Medications: Current Medications Acetaminophen (Tylenol 325mg Tab) 650 mg PO Q6 PRN PRN Reason: Fever >100.4 F Last Admin: 06/26/17 23:27 Dose: 650 mg Aspirin (Aspirin Chewable) 81 mg PO DAILY [facility] Last Admin: 06/28/17 09:33 Dose: 81 mg Enoxaparin Sodium (Lovenox) 40 mg SC DAILY [facility] Last Admin: 06/28/17 09:33 Dose: 40 mg Sodium Chloride (Sodium Chloride 0.9%) 1,000 mls @ 100 mls/hr IV .Q10H [facility] Last Admin: 06/27/17 19:02 Dose: Not Given Metronidazole (Flagyl) 250 mg in 50 mls @ 100 mls/hr IVPB Q8H [facility] Last Admin: 06/28/17 09:34 Dose: 100 mls/hr Ceftriaxone Sodium 1 gm/ (Sodium Chloride) 50 mls @ 100 mls/hr IVPB DAILY [facility] Last Admin: 06/28/17 11:01 Dose: 100 mls/hr Morphine Sulfate (Morphine) 2 mg IVP Q4 PRN PRN Reason: Pain, moderate (4-7) Last Admin: 06/28/17 00:05 Dose: 2 mg Ondansetron HCl (Zofran Inj) 4 mg IVP Q6 PRN PRN Reason: Nausea/Vomiting Last Admin: 06/27/17 23:02 Dose: 4 mg Pantoprazole Sodium (Protonix Inj) 40 mg IVP DAILY [facility] Last Admin: 06/28/17 09:33 Dose: 40 mg Pneumococcal Polyvalent Vaccine (Pneumovax 23 Vaccine) 0.5 ml IM .ONCE ONE Stop: 06/30/17 14:01 Rosuvastatin Calcium (Crestor) 10 mg PO [facility] Last Admin: 06/27/17 21:37 Dose: Not Given Saccharomyces Boulardii (Florastor) 250 mg PO BID [facility] Last Admin: 06/28/17 09:33 Dose: 250 mg - Labs Labs: 06/28/17 06:27 06/28/17 06:30 PT 11.5 SECONDS (9.7-12.2) 06/26/17 20:46 INR 1.0 06/26/17 20:46 APTT 22 SECONDS (21-34) 06/26/17 20:46 - Constitutional Appears: Well - Head Exam Head Exam: NORMAL INSPECTION - Eye Exam Eye Exam: Normal appearance - ENT Exam ENT Exam: Mucous Membranes Moist - Neck Exam Neck Exam: Full ROM, Normal Inspection - Respiratory Exam Respiratory Exam: Clear to Ausculation Bilateral, NORMAL BREATHING PATTERN - Cardiovascular Exam Cardiovascular Exam: REGULAR RHYTHM - GI/Abdominal Exam GI & Abdominal Exam: Soft, Normal Bowel Sounds - Extremities Exam Extremities Exam: Full ROM - Back Exam Back Exam: NORMAL INSPECTION - Neurological Exam Neurological Exam: Awake, Oriented x3 - Psychiatric Exam Psychiatric exam: Normal Mood - Skin Skin Exam: Dry Assessment and Plan - Assessment and Plan (Free Text) Plan: 1.) NSTEMI - Cardiology consulted: Dr. Gillette --> help appreciated - EK x3: Bradycardia; prolonged QT - Troponin: 0.4540, 1.5500, 1.3200 - Cholesterol 179; LDL 105; HDL 40; Triglycerides 77 - TSH 0.77 Imaging: * ECHO: Left ventricle systolic function is mildly impaired. The ejection fraction is 50-55%. The left ventricular diastolic function is normal. There is mild pulmonary hypertension - Medications: * ASA 81, * Crestor 10mg * Lovenox 40mg SC daily - s/p Cath 06/27/16 and TVP Patient transferred to ICU for monitoring -d/w Dr Gillette. Plan to remove TVP tomorrow 2) Prolonged QT interval QTc on admission 06/26/17 -> 540 Latest EKG reviewed QTc improved to normal 470 cipro d/jeferson Planning to remove TVP tomorrow 3.) Diverticulitis - Afebrile, vitals stable, leukocytosis with left shift, no bandemia - Imaging: * CT Ab/Pelvis: Findings compatible with acute diverticulitis of sigmoid colon. Recommend endoscopy following resolution. Apparent mild asymmetric gallbladder wall thickening or fluid. Suggest ultrasound. Adrenal lesion. Recommend further evaluation with unenhanced abdominal CT or MR. Alternatively , if there is a history of malignancy, consider PET. Probable fibroid uterus. no fever,no leukocytosis,abdomen benign, do diarrhea cipro d/jeferson due to QT prolongation 4.) Prophylactic Measures - GI PPX: Protonix 40mg IVP daily - DVT PPX: Lovenox 40mg SC daily, SCDs
--- NOTE | 2017-06-29 03:50 | CARDCATH ---
PROCEDURE DATE: 06/27/2017 PROCEDURES: 1. Left heart catheterization. 2. Coronary angiogram. 3. Temporary transvenous pacemaker placement. CLINICAL INDICATION: 1. Chest pain. 2. Non-ST elevation myocardial infarction. 3. Hypertension. 4. Symptomatic bradycardia. 5. Abnormal EKG. REFERRING PHYSICIAN: 1. Dr. Alonzo Velazquez. 2. Dr. Shravan Snider. PERFORMING PHYSICIAN: Dr. Tobin Gillette. PROCEDURE: After informed consent, patient was prepped and draped in the usual sterile fashion. A 2% lidocaine was given in the right groin for local anesthesia. Using micropuncture technique, 6-Malian sheath was introduced into right common femoral artery. A 7-Malian sheath was introduced into right common femoral vein. Temporary transvenous pacemaker was inserted via the right common femoral vein. JL4 6-Malian diagnostic catheter was engaged into left main coronary artery. Contrast injected and left coronary angiogram was performed. JR4 6-Malian diagnostic catheter was engaged into right coronary artery. Contrast injected and right coronary angiogram was performed. Pigtail catheter crossed into left ventricle across the aortic valve. LV end-diastolic pressure measured. Contrast injected and LV angiogram was performed. Then the pigtail catheter pulled back across the aortic valve. Pressure gradient across the aortic valve was measured. The patient tolerated the procedure well. FINDINGS: 1. Left main coronary artery is patent. 2. LAD and diagonal branches are patent. 3. Left circumflex and obtuse marginal branches are patent. 4. Right coronary artery is dominant and patent. 5. LV ejection fraction is approximately 55%. Mild global hypokinesis. EDP is 21. No gradient across the aortic valve. IMPRESSION: 1. Normal coronaries. 2. Normal left ventricular systolic function. 3. Temporary transvenous pacemaker placed due to symptomatic bradycardia. Tobin Gillette MD
[2017-06-29 06:46] LABS: BASO % 0.5 % (0.0-2.0); EOS # 0.2 K/uL (0.0-0.7); EOS % 2.9 % (0.0-4.0); HEMOGLOBIN 11.6 g/dL (11.0-16.0); LYMPH # 1.3 K/uL (1.0-4.3); LYMPH % 18.1 % (20.0-40.0); MEAN CELL VOLUME 84.8 fL (81.0-99.0); MEAN CORPUSCULAR HEMOGLOBIN 28.1 pg (27.0-31.0); MEAN CORPUSCULAR HGB CONC 33.2 g/dL (33.0-37.0); MEAN PLATELET VOLUME 12.8 fL (7.2-11.7); MONO # 0.8 K/uL (0.0-0.8); MONO % 11.3 % (0.0-10.0); NEUT # 4.7 K/uL (1.8-7.0); NEUT % 67.2 % (50.0-75.0); RBC 4.11 Mil/uL (3.80-5.20); RED CELL DISTRIBUTION WIDTH 13.7 % (11.5-14.5)
[2017-06-29 07:03] LABS: ALBUMIN 3.5 g/dL (3.5-5.0); ALT/SGPT 25 U/L (9-52); AST/SGOT 35 U/L (14-36); BLOOD UREA NITROGEN 15 mg/dL (7-17); CALCIUM 8.8 mg/dl (8.6-10.4); GFR AFRICAN-AMERICAN > 60; GFR NON-AFRICAN AMERICAN > 60; MAGNESIUM 1.9 mg/dL (1.6-2.3)
[2017-06-29] MEDS: Saccharomyces Boulardi 250 mg Cap PO SCH ×2 (09:15→17:10)
[2017-06-29] MEDS: Enoxaparin 40 mg Syringe SC SCH (09:16)
--- NOTE | 2017-06-29 10:43 | CARD ---
APPROVED REPORT EKG Measurement Heart [id number] <Conclusion> Sinus bradycardia Abnormal QRS-T angle, consider primary T wave abnormality Abnormal ECG
--- NOTE | 2017-06-29 11:47 | CP.PCM.PN ---
<Yoav Alcaraz - Last Filed: 06/29/17 11:43> Subjective - Date & Time of Evaluation Date of Evaluation: 06/29/17 Time of Evaluation: 11:43 - Subjective Subjective: PGY-[address] Gillette. No acute events overnight noted. Patient states she is doing well. Denies lightheadedness, chest pain or palpitations. Stated she had a syncopal episode 1 month ago (which was not endorsed on initial eval). States she is tolerating her diet more and more everyday. Objective - Vital Signs/Intake and Output Vital Signs (last 24 hours): Temp Pulse Resp BP Pulse Ox 98.6 F 51 L 14 126/55 L 93 L 06/29/17 08:00 06/29/17 11:01 06/28/17 15:00 06/29/17 11:01 06/29/17 11:01 Intake and Output: 06/29/17 06/29/17 06:59 18:59 Intake Total 700 400 Output Total 300 Balance 400 400 - Medications Medications: Current Medications Acetaminophen (Tylenol 325mg Tab) 650 mg PO Q6 PRN PRN Reason: Fever >100.4 F Last Admin: 06/26/17 23:27 Dose: 650 mg Aspirin (Aspirin Chewable) 81 mg PO DAILY [facility] Last Admin: 06/29/17 09:15 Dose: 81 mg Enoxaparin Sodium (Lovenox) 40 mg SC DAILY [facility] Last Admin: 06/29/17 09:16 Dose: 40 mg Famotidine (Pepcid) 20 mg PO DAILY [facility] Last Admin: 06/29/17 10:46 Dose: Not Given Ceftriaxone Sodium 1 gm/ (Sodium Chloride) 100 mls @ 100 mls/hr IVPB DAILY [facility] Last Admin: 06/29/17 09:14 Dose: 100 mls/hr Metronidazole (Flagyl) 250 mg PO Q8H [facility] Last Admin: 06/29/17 09:15 Dose: 250 mg Morphine Sulfate (Morphine) 2 mg IVP Q4 PRN PRN Reason: Pain, moderate (4-7) Last Admin: 06/28/17 00:05 Dose: 2 mg Pantoprazole Sodium (Protonix Inj) 40 mg IVP DAILY [facility] Last Admin: 06/29/17 09:15 Dose: 40 mg Pneumococcal Polyvalent Vaccine (Pneumovax 23 Vaccine) 0.5 ml IM .ONCE ONE Stop: 06/30/17 14:01 Rosuvastatin Calcium (Crestor) 10 mg PO HS [facility] Last Admin: 06/28/17 22:12 Dose: 10 mg Saccharomyces Boulardii (Florastor) 250 mg PO BID [facility] Last Admin: 06/29/17 09:15 Dose: 250 mg - Labs Labs: 06/29/17 06:36 06/29/17 06:36 PT 11.5 SECONDS (9.7-12.2) 06/26/17 20:46 INR 1.0 06/26/17 20:46 APTT 22 SECONDS (21-34) 06/26/17 20:46 - Additional Findings Additional findings: - Constitutional Appears: Well, No Acute Distress - Head Exam Head Exam: ATRAUMATIC, NORMAL INSPECTION - Eye Exam Eye Exam: EOMI - ENT Exam ENT Exam: Mucous Membranes Moist - Neck Exam Neck Exam: Full ROM - Respiratory Exam Respiratory Exam: Clear to Ausculation Bilateral, NORMAL BREATHING PATTERN. absent: Rales, Rhonchi, Wheezes - Cardiovascular Exam Cardiovascular Exam: REGULAR RHYTHM. absent: Irregular Rhythm, JVD, Murmur - GI/Abdominal Exam GI & Abdominal Exam: Soft, Normal Bowel Sounds. absent: Tenderness - Extremities Exam Additional comments: right femoral catheter insertion site well covered - d/c/i - Neurological Exam Neurological Exam: Alert, Oriented x3 - Skin Skin Exam: Intact, Normal Color, Warm Assessment and Plan (1) NSTEMI (non-ST elevated myocardial infarction) Assessment & Plan: Possibly secondary to myocarditis Elevated Troponins on admission Patient is s/p cardiac cath 06/27/17 - w/ normal coronaries and EF of 55% Status: Acute (2) Prolonged Q-T interval on ECG Assessment & Plan: QTc on admission 06/26/17 -> 540 Latest EKG reviewed QTc improved to normal 470 Keep electrolytes within normal levels Dr Snider to see patient in his office - appointment scheduled for Jul 14 2017 at 11:00AM. * Dr Snider to do Tilt Table test, Loop recorder implant EP study/QT stress test Patient must avoid QT prolongation medications * Common QT prolongation meds include erythromycin, clarithromycin, loratidine, diphenhydramine, ondansetron, amiodarone, and any antidepressants and antipsychotics Genetic studies and screening the family advised Patient told to restrict driving until seen by Dr Snider in his office Status: Acute (3) Symptomatic bradycardia Assessment & Plan: s/p TVP placement 06/27/17 Pacemaker decreased to HR 40 and patient responding with natural HR 60 biochemistry specialist, Dr Snider, to see patient as well Plan is to remove TVP 06/29/17 Monitor on tele in ICU Patient told to restrict driving until seen by Dr Snider in his office See plan for QT prolongation Status: Acute - Assessment and Plan (Free Text) Assessment: From cardiology standpoint - patient is okay to be discharged. Appt scheduled with Dr Snider Jul 14 2017 at 11:00AM. His office address is: [address] [place] [address] [id number], [place] [phone] <Tobin Gillette - Last Filed: 06/29/17 19:47> Subjective - Subjective Subjective: Patient seen and evaluated by ut Plan of care d/w medical investigator and as documented Objective - Vital Signs/Intake and Output Vital Signs (last 24 hours): Temp Pulse Resp BP Pulse Ox 98.2 F 62 14 136/61 93 L 06/29/17 16:00 06/29/17 19:00 06/28/17 15:00 06/29/17 19:00 06/29/17 19:00 Intake and Output: 06/29/17 06/30/17 18:59 06:59 Intake Total 950 0 Output Total 650 250 Balance 300 -250 - Medications Medications: Current Medications Acetaminophen (Tylenol 325mg Tab) 650 mg PO Q6 PRN PRN Reason: Fever >100.4 F Last Admin: 06/26/17 23:27 Dose: 650 mg Aspirin (Aspirin Chewable) 81 mg PO DAILY [facility] Last Admin: 06/29/17 09:15 Dose: 81 mg Enoxaparin Sodium (Lovenox) 40 mg SC DAILY [facility] Last Admin: 06/29/17 09:16 Dose: 40 mg Famotidine (Pepcid) 20 mg PO DAILY [facility] Last Admin: 06/29/17 10:46 Dose: Not Given Ceftriaxone Sodium 1 gm/ (Sodium Chloride) 100 mls @ 100 mls/hr IVPB DAILY [facility] Last Admin: 06/29/17 09:14 Dose: 100 mls/hr Metronidazole (Flagyl) 250 mg PO Q8H [facility] Last Admin: 06/29/17 17:10 Dose: 250 mg Morphine Sulfate (Morphine) 2 mg IVP Q4 PRN PRN Reason: Pain, moderate (4-7) Last Admin: 06/28/17 00:05 Dose: 2 mg Pantoprazole Sodium (Protonix Inj) 40 mg IVP DAILY [facility] Last Admin: 06/29/17 09:15 Dose: 40 mg Pneumococcal Polyvalent Vaccine (Pneumovax 23 Vaccine) 0.5 ml IM .ONCE ONE Stop: 06/30/17 14:01 Rosuvastatin Calcium (Crestor) 10 mg PO HS [facility] Last Admin: 06/28/17 22:12 Dose: 10 mg Saccharomyces Boulardii (Florastor) 250 mg PO BID [facility] Last Admin: 06/29/17 17:10 Dose: 250 mg - Labs Labs: 06/29/17 06:36 06/29/17 06:36 PT 11.5 SECONDS (9.7-12.2) 06/26/17 20:46 INR 1.0 06/26/17 20:46 APTT 22 SECONDS (21-34) 06/26/17 20:46
--- NOTE | 2017-06-29 12:06 | CARD ---
APPROVED REPORT EKG Measurement Heart [id number] <Conclusion> Sinus bradycardia Otherwise normal ECG
--- NOTE | 2017-06-29 12:19 | CARD ---
APPROVED REPORT EKG Measurement Heart [id number] <Conclusion> Sinus bradycardia Abnormal QRS-T angle, consider primary T wave abnormality Prolonged QT Abnormal ECG
--- NOTE | 2017-06-29 12:47 | CP.CCUPN ---
<Tobin Mckenzie - Last Filed: 06/29/17 12:44> CCU Subjective - Physician Review Subjective (Free Text): 06/29/17 12:44 patient seen and examined at bedside. Doing well with no complaints at this time belly pain has resolved Still elif tolerating regular diet TVP to be removed today plan for link and tilt table outpatient CCU Objective - Vital Signs / Intake & Output Vital Signs (Last 4 hours): Vital Signs Pulse BP Pulse Ox 06/29/17 12:12 52 L 127/65 94 L 06/29/17 12:00 48 L 06/29/17 11:01 51 L 126/55 L 93 L 06/29/17 10:00 58 L 130/44 L 97 06/29/17 09:00 60 148/59 L 95 Intake and Output (Last 8hrs): Intake & Output 06/28/17 06/29/17 06/29/17 22:59 06:59 14:59 Intake Total 880 220 600 Output Total 850 0 200 Balance 30 220 400 Weight 162 lb 11.218 oz Intake: Intake, IV Amount 100 100 Left Antecubital 100 100 Oral 880 120 500 Output: Urine 850 0 200 Urine, Voided 850 0 200 Other: # Voids Urine, Voided 1 - Physical Exam Head: Positive for: Atraumatic, Normocephalic Pupils: Positive for: PERRL Extroacular Muscles: Positive for: EOMI Conjunctiva: Positive for: Normal Mouth: Positive for: Moist Mucous Membranes Neck: Positive for: Normal Range of Motion Respiratory/Chest: Positive for: Clear to Auscultation Cardiovascular: Positive for: Regular Rate and Rhythm Abdomen: Positive for: Normal Bowel Sounds. Negative for: Tenderness, Distention, Peritoneal Signs Upper Extremity: Positive for: Normal Inspection Neurological: Positive for: GCS=15, CN II-XII Intact Skin: Positive for: Warm, Rashes Psychiatric: Positive for: Alert, Oriented x 3 - Medications Active Medications: Active Medications Generic Name Dose Route Start Last Admin Trade Name Freq PRN Reason Stop Dose Admin Acetaminophen 650 mg 06/26/17 22:57 06/26/17 23:27 Tylenol 325mg Tab PO 650 mg Q6 PRN Administration Fever >100.4 F Aspirin 81 mg 06/27/17 10:00 06/29/17 09:15 Aspirin Chewable PO 81 mg DAILY [facility] Administration Enoxaparin Sodium 40 mg 06/28/17 10:00 06/29/17 09:16 Lovenox SC 40 mg DAILY [facility] Administration Famotidine 20 mg 06/29/17 10:45 06/29/17 10:46 Pepcid PO Not Given [facility] Ceftriaxone Sodium 1 gm/ 100 mls @ 100 mls/hr 06/29/17 10:00 06/29/17 09:14 Sodium Chloride IVPB 100 mls/hr DAILY [facility] Administration Metronidazole 250 mg 06/28/17 16:30 06/29/17 09:15 Flagyl PO 250 mg Q8H [facility] Administration Morphine Sulfate 2 mg 06/27/17 20:07 06/28/17 00:05 Morphine IVP 2 mg Q4 PRN Administration Pain, moderate (4-7) Pantoprazole Sodium 40 mg 06/28/17 10:00 06/29/17 09:15 Protonix Inj IVP 40 mg DAILY [facility] Administration Pneumococcal Polyvalent Vaccine 0.5 ml 06/30/17 14:00 Pneumovax 23 Vaccine IM 06/30/17 14:01 .ONCE ONE Rosuvastatin Calcium 10 mg 06/27/17 22:00 06/28/17 22:12 Crestor PO 10 mg HS [facility] Administration Saccharomyces Boulardii 250 mg 06/27/17 08:00 06/29/17 09:15 Florastor PO 250 mg BID [facility] Administration - Patient Studies Lab Studies: Microbiology Studies 06/27/17 18:39 MRSA Culture (Admit) - Final Nose MRSA NOT DETECTED Lab Studies 06/29/17 06/29/17 Range/Units 06:36 06:36 WBC 7.0 (4.8-10.8) K/uL RBC 4.11 (3.80-5.20) Mil/uL Hgb 11.6 (11.0-16.0) g/dL Hct 34.8 (34.0-47.0) % MCV 84.8 (81.0-99.0) fL MCH 28.1 (27.0-31.0) pg MCHC 33.2 (33.0-37.0) g/dL RDW 13.7 (11.5-14.5) % Plt Count 136 (130-400) K/uL MPV 12.8 H (7.2-11.7) fL Neut % (Auto) 67.2 (50.0-75.0) % Lymph % (Auto) 18.1 L (20.0-40.0) % [place] % (Auto) 11.3 H (0.0-10.0) % Eos % (Auto) 2.9 (0.0-4.0) % Baso % (Auto) 0.5 (0.0-2.0) % Neut # 4.7 (1.8-7.0) K/uL Lymph # 1.3 (1.0-4.3) K/uL [place] # 0.8 (0.0-0.8) K/uL Eos # 0.2 (0.0-0.7) K/uL Baso # 0.0 (0.0-0.2) K/uL Sodium 134 (132-148) mmol/L Potassium 3.6 (3.6-5.2) mmol/L Chloride 100 (98-107) mmol/L Carbon Dioxide 30 (22-30) mmol/L Anion Gap 6 L (10-20) BUN 15 (7-17) mg/dL Creatinine 0.9 (0.7-1.2) mg/dL Est GFR ( Amer) > 60 Est GFR (Non-Af Amer) > 60 Random Glucose 85 (65-105) mg/dL Calcium 8.8 (8.6-10.4) mg/dl Phosphorus 2.0 L (2.5-4.5) mg/dL Magnesium 1.9 (1.6-2.3) mg/dL Total Bilirubin 1.2 (0.2-1.3) mg/dL AST 35 (14-36) U/L ALT 25 (9-52) U/L Alkaline Phosphatase 57 (38-126) U/L Total Protein 6.9 (6.3-8.3) g/dL Albumin 3.5 (3.5-5.0) g/dL Globulin 3.4 (2.2-3.9) gm/dL Albumin/Globulin Ratio 1.0 (1.0-2.1) Laboratory Results - last 24 hr 06/29/17 06/29/17 06:36 06:36 WBC 7.0 RBC 4.11 Hgb 11.6 Hct 34.8 MCV 84.8 MCH 28.1 MCHC 33.2 RDW 13.7 Plt Count 136 MPV 12.8 H Neut % (Auto) 67.2 Lymph % (Auto) 18.1 L [place] % (Auto) 11.3 H Eos % (Auto) 2.9 Baso % (Auto) 0.5 Neut # 4.7 Lymph # 1.3 [place] # 0.8 Eos # 0.2 Baso # 0.0 Sodium 134 Potassium 3.6 Chloride 100 Carbon Dioxide 30 Anion Gap 6 L BUN 15 Creatinine 0.9 Est GFR ( Amer) > 60 Est GFR (Non-Af Amer) > 60 Random Glucose 85 Calcium 8.8 Phosphorus 2.0 L Magnesium 1.9 Total Bilirubin 1.2 AST 35 ALT 25 Alkaline Phosphatase 57 Total Protein 6.9 Albumin 3.5 Globulin 3.4 Albumin/Globulin Ratio 1.0 EKG/Cardiology Studies: Cardiology / EKG Studies 06/29/17 10:12 EKG [ELECTROCARDIOGRAM] Stat Comment: Mode Of Transportation: Reason For Exam: bradycardia; prolonged qt Critical Care Progress Note - Nutrition Nutrition: Nutrition Category Date Time Status Regular Diet [DIET] Diets 06/29/17 Lunch Active Assessment/Plan - Assessment and Plan (Free Text) Assessment: Assessment: 61F s/p TVP, Long QT syndrome Plan: Cardio: Cards ([facility]) Aspirin 81 PO Daily Crestor 10 PO HS Plan to remove TVP today tilt table and Loop recorder planned at outpatient GI: Abdominal CT shows findings compatible w/ acute diverticulitis of sigmoid colon. Flagyl 250 IV Q8 Ciprofloxacin d/c because it can prolong QT. Rocephin 1 IV Daily Prophylaxis: DVT: Heparin SC Q8. SCDs GI: Protonix 40 mg IVP Daily <Inder Holloway M - Last Filed: 06/29/17 18:52> CCU Objective - Vital Signs / Intake & Output Vital Signs (Last 4 hours): Vital Signs Temp Pulse BP Pulse Ox 06/29/17 18:00 73 136/44 L 95 06/29/17 17:00 63 138/60 97 06/29/17 16:00 98.2 F 60 141/53 L 97 06/29/17 15:00 56 L 128/56 L 98 Intake and Output (Last 8hrs): Intake & Output 06/29/17 06/29/17 06/29/17 06:59 14:59 22:59 Intake Total 220 600 350 Output Total 0 450 200 Balance 220 150 150 Weight 162 lb 11.218 oz Intake: Intake, IV Amount 100 100 Left Antecubital 100 100 Oral 120 500 350 Output: Urine 0 450 200 Urine, Voided 0 450 200 - Medications Active Medications: Active Medications Generic Name Dose Route Start Last Admin Trade Name Freq PRN Reason Stop Dose Admin Acetaminophen 650 mg 06/26/17 22:57 06/26/17 23:27 Tylenol 325mg Tab PO 650 mg Q6 PRN Administration Fever >100.4 F Aspirin 81 mg 06/27/17 10:00 06/29/17 09:15 Aspirin Chewable PO 81 mg DAILY [facility] Administration Enoxaparin Sodium 40 mg 06/28/17 10:00 06/29/17 09:16 Lovenox SC 40 mg DAILY [facility] Administration Famotidine 20 mg 06/29/17 10:45 06/29/17 10:46 Pepcid PO Not Given DAILY [facility] Ceftriaxone Sodium 1 gm/ 100 mls @ 100 mls/hr 06/29/17 10:00 06/29/17 09:14 Sodium Chloride IVPB 100 mls/hr DAILY [facility] Administration Metronidazole 250 mg 06/28/17 16:30 06/29/17 17:10 Flagyl PO 250 mg Q8H [facility] Administration Morphine Sulfate 2 mg 06/27/17 20:07 06/28/17 00:05 Morphine IVP 2 mg Q4 PRN Administration Pain, moderate (4-7) Pantoprazole Sodium 40 mg 06/28/17 10:00 06/29/17 09:15 Protonix Inj IVP 40 mg DAILY [facility] Administration Pneumococcal Polyvalent Vaccine 0.5 ml 06/30/17 14:00 Pneumovax 23 Vaccine IM 06/30/17 14:01 .ONCE ONE Rosuvastatin Calcium 10 mg 06/27/17 22:00 06/28/17 22:12 Crestor PO 10 mg HS [facility] Administration Saccharomyces Boulardii 250 mg 06/27/17 08:00 06/29/17 17:10 Florastor PO 250 mg BID [facility] Administration - Patient Studies Lab Studies: Microbiology Studies 06/27/17 18:39 MRSA Culture (Admit) - Final Nose MRSA NOT DETECTED Lab Studies 06/29/17 06/29/17 Range/Units 06:36 06:36 WBC 7.0 (4.8-10.8) K/uL RBC 4.11 (3.80-5.20) Mil/uL Hgb 11.6 (11.0-16.0) g/dL Hct 34.8 (34.0-47.0) % MCV 84.8 (81.0-99.0) fL MCH 28.1 (27.0-31.0) pg MCHC 33.2 (33.0-37.0) g/dL RDW 13.7 (11.5-14.5) % Plt Count 136 (130-400) K/uL MPV 12.8 H (7.2-11.7) fL Neut % (Auto) 67.2 (50.0-75.0) % Lymph % (Auto) 18.1 L (20.0-40.0) % [place] % (Auto) 11.3 H (0.0-10.0) % Eos % (Auto) 2.9 (0.0-4.0) % Baso % (Auto) 0.5 (0.0-2.0) % Neut # 4.7 (1.8-7.0) K/uL Lymph # 1.3 (1.0-4.3) K/uL [place] # 0.8 (0.0-0.8) K/uL Eos # 0.2 (0.0-0.7) K/uL Baso # 0.0 (0.0-0.2) K/uL Sodium 134 (132-148) mmol/L Potassium 3.6 (3.6-5.2) mmol/L Chloride 100 (98-107) mmol/L Carbon Dioxide 30 (22-30) mmol/L Anion Gap 6 L (10-20) BUN 15 (7-17) mg/dL Creatinine 0.9 (0.7-1.2) mg/dL Est GFR ( Amer) > 60 Est GFR (Non-Af Amer) > 60 Random Glucose 85 (65-105) mg/dL Calcium 8.8 (8.6-10.4) mg/dl Phosphorus 2.0 L (2.5-4.5) mg/dL Magnesium 1.9 (1.6-2.3) mg/dL Total Bilirubin 1.2 (0.2-1.3) mg/dL AST 35 (14-36) U/L ALT 25 (9-52) U/L Alkaline Phosphatase 57 (38-126) U/L Total Protein 6.9 (6.3-8.3) g/dL Albumin 3.5 (3.5-5.0) g/dL Globulin 3.4 (2.2-3.9) gm/dL Albumin/Globulin Ratio 1.0 (1.0-2.1) Laboratory Results - last 24 hr 06/29/17 06/29/17 06:36 06:36 WBC 7.0 RBC 4.11 Hgb 11.6 Hct 34.8 MCV 84.8 MCH 28.1 MCHC 33.2 RDW 13.7 Plt Count 136 MPV 12.8 H Neut % (Auto) 67.2 Lymph % (Auto) 18.1 L [place] % (Auto) 11.3 H Eos % (Auto) 2.9 Baso % (Auto) 0.5 Neut # 4.7 Lymph # 1.3 [place] # 0.8 Eos # 0.2 Baso # 0.0 Sodium 134 Potassium 3.6 Chloride 100 Carbon Dioxide 30 Anion Gap 6 L BUN 15 Creatinine 0.9 Est GFR ( Amer) > 60 Est GFR (Non-Af Amer) > 60 Random Glucose 85 Calcium 8.8 Phosphorus 2.0 L Magnesium 1.9 Total Bilirubin 1.2 AST 35 ALT 25 Alkaline Phosphatase 57 Total Protein 6.9 Albumin 3.5 Globulin 3.4 Albumin/Globulin Ratio 1.0 EKG/Cardiology Studies: Cardiology / EKG Studies 06/29/17 10:12 EKG [ELECTROCARDIOGRAM] Stat Comment: Mode Of Transportation: Reason For Exam: bradycardia; prolonged qt Critical Care Progress Note - Nutrition Nutrition: Nutrition Category Date Time Status Regular Diet [DIET] Diets 06/29/17 Lunch Active Attending/Attestation - Attestation I have personally seen and examined this patient.: Yes I have fully participated in the care of the patient.: Yes I have reviewed all pertinent clinical information: Yes Notes (Text): 06/29/17 18:52 Today: June The Patient was seen and examined at the bedside, Medical records reviewed, and management issues were discussed and formulated with the house staff. I have reviewed all the relevant clinical, laboratory, hemodynamic, radiographic data and medications Events reviewed Pain issues, skin care, head of the bed elevation, glycemic control were addressed. Agree with above resident's assessment and treatment plans of care as transcribed in Dr. Mckenzie note.
--- NOTE | 2017-06-29 18:50 | CP.PCM.PN ---
Subjective - Date & Time of Evaluation Date of Evaluation: 06/29/17 Time of Evaluation: 10:00 - Subjective Subjective: seen and examined No complain,s/p EEG,going for CTA head and neck She has her TVP in place Objective - Vital Signs/Intake and Output Vital Signs (last 24 hours): Temp Pulse Resp BP Pulse Ox 98.2 F 73 14 136/44 L 95 06/29/17 16:00 06/29/17 18:00 06/28/17 15:00 06/29/17 18:00 06/29/17 18:00 Intake and Output: 06/29/17 06/29/17 06:59 18:59 Intake Total 700 950 Output Total 300 650 Balance 400 300 - Medications Medications: Current Medications Acetaminophen (Tylenol 325mg Tab) 650 mg PO Q6 PRN PRN Reason: Fever >100.4 F Last Admin: 06/26/17 23:27 Dose: 650 mg Aspirin (Aspirin Chewable) 81 mg PO DAILY [facility] Last Admin: 06/29/17 09:15 Dose: 81 mg Enoxaparin Sodium (Lovenox) 40 mg SC DAILY [facility] Last Admin: 06/29/17 09:16 Dose: 40 mg Famotidine (Pepcid) 20 mg PO DAILY [facility] Last Admin: 06/29/17 10:46 Dose: Not Given Ceftriaxone Sodium 1 gm/ (Sodium Chloride) 100 mls @ 100 mls/hr IVPB DAILY [facility] Last Admin: 06/29/17 09:14 Dose: 100 mls/hr Metronidazole (Flagyl) 250 mg PO Q8H [facility] Last Admin: 06/29/17 17:10 Dose: 250 mg Morphine Sulfate (Morphine) 2 mg IVP Q4 PRN PRN Reason: Pain, moderate (4-7) Last Admin: 06/28/17 00:05 Dose: 2 mg Pantoprazole Sodium (Protonix Inj) 40 mg IVP DAILY [facility] Last Admin: 06/29/17 09:15 Dose: 40 mg Pneumococcal Polyvalent Vaccine (Pneumovax 23 Vaccine) 0.5 ml IM .ONCE ONE Stop: 06/30/17 14:01 Rosuvastatin Calcium (Crestor) 10 mg PO HS [facility] Last Admin: 06/28/17 22:12 Dose: 10 mg Saccharomyces Boulardii (Florastor) 250 mg PO BID [facility] Last Admin: 06/29/17 17:10 Dose: 250 mg - Labs Labs: 06/29/17 06:36 06/29/17 06:36 PT 11.5 SECONDS (9.7-12.2) 06/26/17 20:46 INR 1.0 06/26/17 20:46 APTT 22 SECONDS (21-34) 06/26/17 20:46 - Constitutional Appears: Non-toxic - Head Exam Head Exam: NORMAL INSPECTION - Eye Exam Eye Exam: Normal appearance - ENT Exam ENT Exam: Mucous Membranes Moist - Neck Exam Neck Exam: Full ROM - Respiratory Exam Respiratory Exam: Clear to Ausculation Bilateral, NORMAL BREATHING PATTERN - Cardiovascular Exam Cardiovascular Exam: REGULAR RHYTHM - GI/Abdominal Exam GI & Abdominal Exam: Soft, Normal Bowel Sounds - Extremities Exam Extremities Exam: Full ROM - Back Exam Back Exam: NORMAL INSPECTION - Neurological Exam Neurological Exam: Awake, Oriented x3 - Psychiatric Exam Psychiatric exam: Normal Mood - Skin Skin Exam: Dry Assessment and Plan - Assessment and Plan (Free Text) Plan: 1.) NSTEMI Possible myocarditis - Cardiology consulted: Dr. Gillette --> help appreciated - EK x3: Bradycardia; prolonged QT - Troponin: 0.4540, 1.5500, 1.3200 - Cholesterol 179; LDL 105; HDL 40; Triglycerides 77 - TSH 0.77 Imaging: * ECHO: Left ventricle systolic function is mildly impaired. The ejection fraction is 50-55%. The left ventricular diastolic function is normal. There is mild pulmonary hypertension - Medications: * ASA 81, * Crestor 10mg * Lovenox 40mg SC daily - s/p Cath 06/27/[address] Raphael is planing to remove TVP tomorrow morning(06/30/17) as per pt.we will f/w with him 2) Prolonged QT interval and sinus bradycardia QTc on admission 06/26/17 -> 540 Latest EKG reviewed QTc improved to normal 470 cipro d/jeferson Dr cifuentes's cosnult appreciated.pt will follow him as an out patient on Jul at 11am.Planning to do tilt table test, loop recorder ,EP study and QT stress test Patient must avoid QT prolongation medications Genetic studies and screening the family advised Patient told to restrict driving until seen by Dr Cifuentes in his office 3) Near syncope and dizzy episodes d/w Dr Coats going for CTA head and neck s/p EEG 4.) Diverticulitis - Afebrile, vitals stable, leukocytosis with left shift, no bandemia - Imaging: * CT Ab/Pelvis: Findings compatible with acute diverticulitis of sigmoid colon. Recommend endoscopy following resolution. Apparent mild asymmetric gallbladder wall thickening or fluid. Suggest ultrasound. Adrenal lesion. Recommend further evaluation with unenhanced abdominal CT or MR. Alternatively , if there is a history of malignancy, consider PET. Probable fibroid uterus. no fever,no leukocytosis,abdomen benign, do diarrhea cipro d/jeferson due to QT prolongation 5.) Prophylactic Measures - GI PPX: Protonix 40mg IVP daily - DVT PPX: Lovenox 40mg SC daily, SCDs
--- NOTE | 2017-06-29 20:13 | PCM.EEG ---
Electroencephalogram Report - Electroencephalogram Report Procedure Date: 06/29/17 Interpretation: Indication: Syncope. Medications were reviewed. Technical: This is a digitally recorded electroencephalogram. The international 10-20 electrode placement system is used for scalp electrode placement. Sixteen channels of scalp EEG are recorded Another channel was used for for ECG. The data are stored digitally and reviewed in reformatted montages for optimal display. Background: 9 to 10 hertz alpha activity was seen. Maximal over the posterior head region. These activities are symmetric on both sides. They attenuated with eye opening. There was a significant amount of EMG and movement artifact as well as evidence of artifact from the ICU equipment. Description: No focal slowing was seen. No seizure like activity was observed during this recording. Patient entered into periods of drowsiness and light sleep. Impression: Normal EEG. No focal slowing no seizure like activity was observed. Correlation with clinical findings is needed.
--- NOTE | 2017-06-29 20:39 | CP.PCM.CON ---
History of Present Illness - History of Present Illness History of Present Illness: Mrs. Peña is a 61-year-old woman with a past medical history of breast cancer , who initially presented to the ED with abdominal pain and diarrhea, and developed symptomatic bradycardia requiring TVP insertion. The patient complained that last month she had a syncopal episode. She also had twitches of her body at times. She states that she has had previous episodes of syncope as well and knows she may lose consciousness as she becomes light-headed. After she regained consciousness, she was back to baseline. There was never any urinary/bowel incontinence or tongue biting mentioned. Review of Systems - Review of Systems All systems: reviewed and no additional remarkable complaints except Past Patient History - Past Medical History & Family History Past Medical History?: Yes - Past Social History Smoking Status: Never Smoked - CARDIAC Hx Cardiac Disorders: No - PULMONARY Hx Respiratory Disorders: No - NEUROLOGICAL Hx Neurological Disorder: No - HEENT Hx HEENT Problems: No - RENAL Hx Chronic Kidney Disease: No - ENDOCRINE/METABOLIC Hx Endocrine Disorders: No - HEMATOLOGICAL/ONCOLOGICAL Hx Blood Disorders: No - INTEGUMENTARY Hx Dermatological Problems: No - MUSCULOSKELETAL/RHEUMATOLOGICAL Hx Musculoskeletal Disorders: No Hx Falls: No - GASTROINTESTINAL Hx Gastrointestinal Disorders: No - GENITOURINARY/GYNECOLOGICAL Hx Genitourinary Disorders: No Other/Comment: Breast Ca 1994-in remission - PSYCHIATRIC Hx Psychophysiologic Disorder: No Hx Substance Use: Yes (Occ Marijuana use) - SURGICAL HISTORY Hx Surgeries: Yes Other/Comment: RIGHT BREAST LUMPECTOMY 1994 - ANESTHESIA Hx Anesthesia: Yes Hx Anesthesia Reactions: No Hx Malignant Hyperthermia: No Has any member of the family had a problem w/ anesthesia?: No Meds Allergies/Adverse Reactions: Allergies Allergy/AdvReac Type Severity Reaction Status Date / Time No Known Allergies Allergy Unverified 05/10/13 13:48 - Medications Medications: Current Medications Acetaminophen (Tylenol 325mg Tab) 650 mg PO Q6 PRN PRN Reason: Fever >100.4 F Last Admin: 06/26/17 23:27 Dose: 650 mg Aspirin (Aspirin Chewable) 81 mg PO DAILY [facility] Last Admin: 06/29/17 09:15 Dose: 81 mg Enoxaparin Sodium (Lovenox) 40 mg SC DAILY [facility] Last Admin: 06/29/17 09:16 Dose: 40 mg Famotidine (Pepcid) 20 mg PO DAILY [facility] Last Admin: 06/29/17 10:46 Dose: Not Given Ceftriaxone Sodium 1 gm/ (Sodium Chloride) 100 mls @ 100 mls/hr IVPB DAILY [facility] Last Admin: 06/29/17 09:14 Dose: 100 mls/hr Metronidazole (Flagyl) 250 mg PO Q8H [facility] Last Admin: 06/29/17 17:10 Dose: 250 mg Morphine Sulfate (Morphine) 2 mg IVP Q4 PRN PRN Reason: Pain, moderate (4-7) Last Admin: 06/28/17 00:05 Dose: 2 mg Pantoprazole Sodium (Protonix Inj) 40 mg IVP DAILY [facility] Last Admin: 06/29/17 09:15 Dose: 40 mg Pneumococcal Polyvalent Vaccine (Pneumovax 23 Vaccine) 0.5 ml IM .ONCE ONE Stop: 06/30/17 14:01 Rosuvastatin Calcium (Crestor) 10 mg PO HS [facility] Last Admin: 06/28/17 22:12 Dose: 10 mg Saccharomyces Boulardii (Florastor) 250 mg PO BID [facility] Last Admin: 06/29/17 17:10 Dose: 250 mg Physical Exam - Constitutional Appears: Well - Head Exam Head Exam: ATRAUMATIC, NORMAL INSPECTION, NORMOCEPHALIC - Eye Exam Eye Exam: EOMI, Normal appearance, PERRL - ENT Exam ENT Exam: Mucous Membranes Moist, Normal Exam - Respiratory Exam Respiratory Exam: Clear to Auscultation Bilateral, NORMAL BREATHING PATTERN - Cardiovascular Exam Cardiovascular Exam: Bradycardia, REGULAR RHYTHM, +S1, +S2 - GI/Abdominal Exam GI & Abdominal Exam: Normal Bowel Sounds, Soft. absent: Tenderness - Rectal Exam Rectal Exam: Deferred - Extremities Exam Extremities exam: Positive for: normal inspection - Back Exam Back exam: NORMAL INSPECTION - Neurological Exam Neurological exam: Alert, CN II-XII Intact, Normal Gait, Oriented x3, Reflexes Normal - Psychiatric Exam Psychiatric exam: Normal Affect, Normal Mood Results - Vital Signs Recent Vital Signs: Last Vital Signs Temp 98.2 F 06/29/17 16:00 Pulse 56 L 06/29/17 20:00 Resp 14 06/28/17 15:00 BP 145/52 L 06/29/17 20:00 Pulse Ox 94 L 06/29/17 20:00 - Labs Result Diagrams: 06/29/17 06:36 01/18/18 06:36 Labs: Laboratory Results - last 24 hr 06/29/17 06/29/17 06:36 06:36 WBC 7.0 RBC 4.11 Hgb 11.6 Hct 34.8 MCV 84.8 MCH 28.1 MCHC 33.2 RDW 13.7 Plt Count 136 MPV 12.8 H Neut % (Auto) 67.2 Lymph % (Auto) 18.1 L Island % (Auto) 11.3 H Eos % (Auto) 2.9 Baso % (Auto) 0.5 Neut # 4.7 Lymph # 1.3 Island # 0.8 Eos # 0.2 Baso # 0.0 Sodium 134 Potassium 3.6 Chloride 100 Carbon Dioxide 30 Anion Gap 6 L BUN 15 Creatinine 0.9 Est GFR ( Amer) > 60 Est GFR (Non-Af Amer) > 60 Random Glucose 85 Calcium 8.8 Phosphorus 2.0 L Magnesium 1.9 Total Bilirubin 1.2 AST 35 ALT 25 Alkaline Phosphatase 57 Total Protein 6.9 Albumin 3.5 Globulin 3.4 Albumin/Globulin Ratio 1.0 Assessment & Plan (1) Neurocardiogenic syncope Assessment and Plan: This was likely due to cardiac dysrrhythmia. EEG was normal. We will rule out VBI since she does have vertigo/dizziness before syncope. A CTA of the head/ neck is recommended. IF this is normal, continue care per cardiology. Thank you. Status: Acute Priority: High
[2017-06-30 06:59] LABS: BASO % 0.6 % (0.0-2.0); EOS # 0.4 K/uL (0.0-0.7); EOS % 5.7 % (0.0-4.0); LYMPH # 1.2 K/uL (1.0-4.3); LYMPH % 16.5 % (20.0-40.0); MEAN CELL VOLUME 85.4 fL (81.0-99.0); MEAN CORPUSCULAR HEMOGLOBIN 28.1 pg (27.0-31.0); MEAN CORPUSCULAR HGB CONC 32.9 g/dL (33.0-37.0); MEAN PLATELET VOLUME 12.4 fL (7.2-11.7); MONO # 0.8 K/uL (0.0-0.8); MONO % 11.4 % (0.0-10.0); NEUT # 4.6 K/uL (1.8-7.0); NEUT % 65.8 % (50.0-75.0); RBC 4.25 Mil/uL (3.80-5.20); RED CELL DISTRIBUTION WIDTH 13.6 % (11.5-14.5)
[2017-06-30 09:07] LABS: ALBUMIN 3.6 g/dL (3.5-5.0)
[2017-06-30] MEDS: Enoxaparin 40 mg Syringe SC SCH (09:45)
[2017-06-30] MEDS: Saccharomyces Boulardi 250 mg Cap PO SCH ×2 (09:47→17:31)
[2017-06-30] MEDS ORDERED: Iodixanol 320 MG/ML 100 ML BOTTLE IV ONE (09:50)
[2017-06-30 10:00] LABS: ALT/SGPT 18 U/L (9-52); AST/SGOT 38 U/L (14-36); BLOOD UREA NITROGEN 16 mg/dL (7-17); GFR AFRICAN-AMERICAN > 60; GFR NON-AFRICAN AMERICAN > 60; MAGNESIUM 1.8 mg/dL (1.6-2.3)
--- NOTE | 2017-06-30 10:56 | CARD ---
APPROVED REPORT EKG Measurement Heart [id number] <Conclusion> Sinus bradycardia Nonspecific T wave abnormality Prolonged QT Abnormal ECG
[2017-06-30] MEDS ORDERED: Influenza Vaccine 60 mcg/0.5 mL SYR (4YR UP) IM ONE (12:00)
[2017-06-30] MEDS ORDERED: Pneumococcal 23-Valent Vaccine IM ONE (12:00)
--- NOTE | 2017-06-30 14:14 | CP.PCM.PN ---
Subjective - Date & Time of Evaluation Date of Evaluation: 06/30/17 Time of Evaluation: 14:12 - Subjective Subjective: Ms. Peña was seen and examined in the bedside at the ICU. She is alert, oriented in all spheres. She denies any headache, dizziness, lightheadedness, blurred vision, nausea, or vomiting. She follows simple commands. Normal EEG. No focal slowing no seizure like activity was observed. There was no untoward events overnight. Objective - Vital Signs/Intake and Output Vital Signs (last 24 hours): Temp Pulse Resp BP Pulse Ox 98.2 F 65 14 147/52 L 93 L 06/29/17 16:00 06/30/17 06:00 06/30/17 05:00 06/30/17 06:00 06/30/17 06:00 Intake and Output: 06/30/17 06/30/17 06:59 18:59 Intake Total 600 Output Total 250 Balance 350 - Medications Medications: Current Medications Acetaminophen (Tylenol 325mg Tab) 650 mg PO Q6 PRN PRN Reason: Fever >100.4 F Last Admin: 06/26/17 23:27 Dose: 650 mg Aspirin (Aspirin Chewable) 81 mg PO DAILY [facility] Last Admin: 06/30/17 09:45 Dose: 81 mg Enoxaparin Sodium (Lovenox) 40 mg SC DAILY [facility] Last Admin: 06/30/17 09:45 Dose: 40 mg Ceftriaxone Sodium 1 gm/ (Sodium Chloride) 100 mls @ 100 mls/hr IVPB DAILY [facility] Last Admin: 06/30/17 09:44 Dose: 100 mls/hr Metronidazole (Flagyl) 250 mg PO Q8H [facility] Last Admin: 06/30/17 09:45 Dose: 250 mg Morphine Sulfate (Morphine) 2 mg IVP Q4 PRN PRN Reason: Pain, moderate (4-7) Last Admin: 06/28/17 00:05 Dose: 2 mg Rosuvastatin Calcium (Crestor) 10 mg PO HS [facility] Last Admin: 06/29/17 21:59 Dose: 10 mg Saccharomyces Boulardii (Florastor) 250 mg PO BID [facility] Last Admin: 06/30/17 09:47 Dose: 250 mg - Labs Labs: 06/30/17 06:52 06/30/17 06:52 PT 11.5 SECONDS (9.7-12.2) 06/26/17 20:46 INR 1.0 06/26/17 20:46 APTT 22 SECONDS (21-34) 06/26/17 20:46 - Constitutional Appears: No Acute Distress - Head Exam Head Exam: NORMAL INSPECTION - Neurological Exam Neurological Exam: Alert, Awake, CN II-XII Intact, Oriented x3 Neuro motor strength exam: Left Upper Extremity: 5, Right Upper Extremity: 5, Left Lower Extremity: 5, Right Lower Extremity: 5 Additional comments: She is able to answer questions appropriately and follow simple commands. Sensation remains intact. Assessment and Plan (1) Neurocardiogenic syncope Assessment & Plan: Case discussed with Dr. Coats, continue all current medical regimen. Recommend CTA of the head/neck is recommended. IF this is normal, continue care per cardiology. Status: Acute
--- NOTE | 2017-06-30 16:48 | CT ---
PROCEDURE: CT Angiography of the Brain. HISTORY: syncope COMPARISON: None available. TECHNIQUE: CT angiography of the intracranial arteries was performed. Coronal and sagittal maximum intensity projection reformatted images were generated. Radiation dose: Total exam DLP = 498.97 mGy-cm. This CT exam was performed using one or more of the following dose reduction techniques: Automated exposure control, adjustment of the mA and/or kV according to patient size, and/or use of iterative reconstruction technique. FINDINGS: INTERNAL CEREBRAL ARTERIES: Unremarkable. The skull base, petrous, cavernous and supraclinoid segments are bilaterally widely patent. Incidental limited pneumatization of a posterior clinoid is appreciated. ANTERIOR CEREBRAL ARTERIES: Unremarkable. A1 and A2 segments are widely patent. Smaller distal branches unremarkable, as visualized. MIDDLE CEREBRAL ARTERIES: Unremarkable. M1 and M2 segments are widely patent. Perisylvian branches grossly symmetric. POSTERIOR CIRCULATION: Basilar Artery: Unremarkable. Distal Vertebral Arteries: Unremarkable. Posterior Cerebral Arteries: Unremarkable. Posterior Inferior Cerebellar Arteries: Unremarkable. NECK CTA: Common Carotid arteries: The bilateral common carotid appear widely patent from their origins to their bifurcations with no significant stenosis appreciated. Prominent ectasis is appreciated the distal brachiocephalic and proximal right common carotid arteries. No evidence to suggest common carotid artery dissection. Internal Carotid arteries: No significant stenosis is appreciated throughout the cervical internal carotid artery segments bilaterally and there is no evidence of dissection either. External Carotid arteries: Appear unremarkable bilaterally. Vertebral arteries: The bilateral vertebral arteries appear normal in caliber from their origins to their junction with the basilar artery. Vertebrobasilar system appears right dominant. No significant stenosis or definite pattern of dissection. Incidentally, the bilateral subclavian arteries are widely patent as well as the brachiocephalic artery. ANEURYSM/ VASCULAR MALFORMATIONS: None. OTHER FINDINGS: IMPRESSION: No significant stenosis and no definite arterial occlusion is seen CT Angiography of the Brain and Neck.
--- NOTE | 2017-06-30 17:49 | CP.PCM.PN ---
Subjective - Date & Time of Evaluation Date of Evaluation: 06/30/17 Time of Evaluation: 09:00 - Subjective Subjective: Patient was seen and examined this morning no complain,no dizziness TVP in place,going for CTA head and neck to rule out vertebrobasilar insufficiency Objective - Vital Signs/Intake and Output Vital Signs (last 24 hours): Temp Pulse Resp BP Pulse Ox 98.2 F 65 14 147/52 L 93 L 06/29/17 16:00 06/30/17 06:00 06/30/17 05:00 06/30/17 06:00 06/30/17 06:00 Intake and Output: 06/30/17 06/30/17 06:59 18:59 Intake Total 600 Output Total 250 Balance 350 - Medications Medications: Current Medications Acetaminophen (Tylenol 325mg Tab) 650 mg PO Q6 PRN PRN Reason: Fever >100.4 F Last Admin: 06/26/17 23:27 Dose: 650 mg Aspirin (Aspirin Chewable) 81 mg PO DAILY [facility] Last Admin: 06/30/17 09:45 Dose: 81 mg Enoxaparin Sodium (Lovenox) 40 mg SC DAILY [facility] Last Admin: 06/30/17 09:45 Dose: 40 mg Ceftriaxone Sodium 1 gm/ (Sodium Chloride) 100 mls @ 100 mls/hr IVPB DAILY [facility] Last Admin: 06/30/17 09:44 Dose: 100 mls/hr Metronidazole (Flagyl) 250 mg PO Q8H [facility] Last Admin: 06/30/17 17:31 Dose: 250 mg Morphine Sulfate (Morphine) 2 mg IVP Q4 PRN PRN Reason: Pain, moderate (4-7) Last Admin: 06/28/17 00:05 Dose: 2 mg Rosuvastatin Calcium (Crestor) 10 mg PO HS [facility] Last Admin: 06/29/17 21:59 Dose: 10 mg Saccharomyces Boulardii (Florastor) 250 mg PO BID [facility] Last Admin: 06/30/17 17:31 Dose: 250 mg - Labs Labs: 06/30/17 06:52 06/30/17 06:52 PT 11.5 SECONDS (9.7-12.2) 06/26/17 20:46 INR 1.0 06/26/17 20:46 APTT 22 SECONDS (21-34) 06/26/17 20:46 - Constitutional Appears: Non-toxic - Head Exam Head Exam: NORMAL INSPECTION - Eye Exam Eye Exam: Normal appearance - ENT Exam ENT Exam: Mucous Membranes Moist - Neck Exam Neck Exam: Full ROM, Normal Inspection - Respiratory Exam Respiratory Exam: Clear to Ausculation Bilateral, NORMAL BREATHING PATTERN - Cardiovascular Exam Cardiovascular Exam: REGULAR RHYTHM - GI/Abdominal Exam GI & Abdominal Exam: Soft, Normal Bowel Sounds - Exam External exam: NORMAL EXTERNAL EXAM - Extremities Exam Extremities Exam: Full ROM - Back Exam Back Exam: NORMAL INSPECTION - Neurological Exam Neurological Exam: Awake, Oriented x3 - Psychiatric Exam Psychiatric exam: Normal Mood - Skin Skin Exam: Dry Assessment and Plan - Assessment and Plan (Free Text) Plan: .1) NSTEMI Possible myocarditis - Cardiology consulted: Dr. Gillette --> help appreciated - EK x3: Bradycardia; prolonged QT - Troponin: 0.4540, 1.5500, 1.3200 - Cholesterol 179; LDL 105; HDL 40; Triglycerides 77 - TSH 0.77 Imaging: * ECHO: Left ventricle systolic function is mildly impaired. The ejection fraction is 50-55%. The left ventricular diastolic function is normal. There is mild pulmonary hypertension - Medications: * ASA 81, * Crestor 10mg * Lovenox 40mg SC daily - s/p Cath 06/27/16 and TVP .Her TVP in place we will follow up with Dr Raphael 2) Prolonged QT interval and sinus bradycardia QTc on admission 06/26/17 -> 540 Latest EKG reviewed QTc improved to normal 470 cipro d/jeferson Dr cifuentes's cosnult appreciated.pt will follow him as an out patient on Jul at 11am.Planning to do tilt table test, loop recorder ,EP study and QT stress test Patient must avoid QT prolongation medications Genetic studies and screening the family advised Patient told to restrict driving until seen by Dr Cifuentes in his office 3) Near syncope and dizzy episodes d/w Dr Coats s/p CTA head and neck this afternoon-No VBI s/p EEG,normal EEG 4.) Diverticulitis - Afebrile, vitals stable, leukocytosis with left shift, no bandemia - Imaging: * CT Ab/Pelvis: Findings compatible with acute diverticulitis of sigmoid colon. Recommend endoscopy following resolution. Apparent mild asymmetric gallbladder wall thickening or fluid. Suggest ultrasound. Adrenal lesion. Recommend further evaluation with unenhanced abdominal CT or MR. Alternatively , if there is a history of malignancy, consider PET. Probable fibroid uterus. no fever,no leukocytosis,abdomen benign, do diarrhea cipro d/jeferson due to QT prolongation 5.) Prophylactic Measures - GI PPX: Protonix 40mg IVP daily - DVT PPX: Lovenox 40mg SC daily, SCDs
[2017-07-01 00:46] VITALS: RESP 20
[2017-07-01 07:52] VITALS: BP 131/61; PULSE 69; TEMP 98.8; O2SAT 96
--- NOTE | 2017-07-01 08:19 | CP.PCM.PN ---
Objective - Vital Signs/Intake and Output Vital Signs (last 24 hours): Temp Pulse Resp BP Pulse Ox 98.8 F 69 20 131/61 96 07/01/17 07:10 07/01/17 07:10 07/01/17 07:10 07/01/17 07:10 07/01/17 07:10 Intake and Output: 07/01/17 07/01/17 06:59 18:59 Intake Total 170 Balance 170 - Medications Medications: Current Medications Acetaminophen (Tylenol 325mg Tab) 650 mg PO Q6 PRN PRN Reason: Fever >100.4 F Last Admin: 06/26/17 23:27 Dose: 650 mg Aspirin (Aspirin Chewable) 81 mg PO DAILY [facility] Last Admin: 06/30/17 09:45 Dose: 81 mg Enoxaparin Sodium (Lovenox) 40 mg SC DAILY [facility] Last Admin: 06/30/17 09:45 Dose: 40 mg Ceftriaxone Sodium 1 gm/ (Sodium Chloride) 100 mls @ 100 mls/hr IVPB DAILY [facility] Last Admin: 06/30/17 09:44 Dose: 100 mls/hr Metronidazole (Flagyl) 250 mg PO Q8H [facility] Last Admin: 07/01/17 00:37 Dose: 250 mg Morphine Sulfate (Morphine) 2 mg IVP Q4 PRN PRN Reason: Pain, moderate (4-7) Last Admin: 06/28/17 00:05 Dose: 2 mg Rosuvastatin Calcium (Crestor) 10 mg PO HS [facility] Last Admin: 06/30/17 21:51 Dose: 10 mg Saccharomyces Boulardii (Florastor) 250 mg PO BID [facility] Last Admin: 06/30/17 17:31 Dose: 250 mg - Labs Labs: 06/30/17 06:52 06/30/17 06:52 PT 11.5 SECONDS (9.7-12.2) 06/26/17 20:46 INR 1.0 06/26/17 20:46 APTT 22 SECONDS (21-34) 06/26/17 20:46
[2017-07-01 08:45] LABS: BASO % 0.5 % (0.0-2.0); EOS # 0.4 K/uL (0.0-0.7); HEMOGLOBIN 11.5 g/dL (11.0-16.0); LYMPH % 17.9 % (20.0-40.0); MEAN CELL VOLUME 85.5 fL (81.0-99.0); MEAN CORPUSCULAR HEMOGLOBIN 28.3 pg (27.0-31.0); MEAN CORPUSCULAR HGB CONC 33.1 g/dL (33.0-37.0); MEAN PLATELET VOLUME 12.8 fL (7.2-11.7); MONO # 0.7 K/uL (0.0-0.8); MONO % 12.4 % (0.0-10.0); NEUT # 3.6 K/uL (1.8-7.0); NEUT % 62.2 % (50.0-75.0); RBC 4.05 Mil/uL (3.80-5.20); RED CELL DISTRIBUTION WIDTH 13.5 % (11.5-14.5); WHITE BLOOD COUNT 5.8 K/uL (4.8-10.8)
[2017-07-01 09:08] LABS: ALB/GLOB RATIO 1.2 (1.0-2.1); ALBUMIN 3.5 g/dL (3.5-5.0); ALT/SGPT 29 U/L (9-52); AST/SGOT 24 U/L (14-36); BLOOD UREA NITROGEN 14 mg/dL (7-17); CALCIUM 8.4 mg/dl (8.6-10.4); GFR AFRICAN-AMERICAN > 60; GFR NON-AFRICAN AMERICAN > 60; MAGNESIUM 1.8 mg/dL (1.6-2.3)
[2017-07-01] MEDS: Saccharomyces Boulardi 250 mg Cap PO SCH (09:14)
[2017-07-01] MEDS: Enoxaparin 40 mg Syringe SC SCH (09:14)
[2017-07-01] MEDS ORDERED: Potassium Chloride 10 mEq ER Tab PO ONE (11:05)
--- NOTE | 2017-07-01 12:09 | CP.PCM.DIS ---
Provider - Provider Date of Admission: 06/26/17 22:37 Attending physician: Akin Islas MD Time Spent in preparation of Discharge (in minutes): 40 Hospital Course - Lab Results Lab Results: Micro Results 06/27/17 18:39 Nose MRSA Culture (Admit) - Final MRSA NOT DETECTED Most Recent Lab Values WBC 5.8 K/uL (4.8-10.8) 07/01/17 08:26 RBC 4.05 Mil/uL (3.80-5.20) 07/01/17 08:26 Hgb 11.5 g/dL (11.0-16.0) 07/01/17 08:26 Hct 34.6 % (34.0-47.0) 07/01/17 08:26 MCV 85.5 fL (81.0-99.0) 07/01/17 08:26 MCH 28.3 pg (27.0-31.0) 07/01/17 08:26 MCHC 33.1 g/dL (33.0-37.0) 07/01/17 08:26 RDW 13.5 % (11.5-14.5) 07/01/17 08:26 Plt Count 148 K/uL (130-400) 07/01/17 08:26 MPV 12.8 fL (7.2-11.7) H 07/01/17 08:26 Neut % (Auto) 62.2 % (50.0-75.0) 07/01/17 08:26 Lymph % (Auto) 17.9 % (20.0-40.0) L 07/01/17 08:26 [place] % (Auto) 12.4 % (0.0-10.0) H 07/01/17 08:26 Eos % (Auto) 7.0 % (0.0-4.0) H 07/01/17 08:26 Baso % (Auto) 0.5 % (0.0-2.0) 07/01/17 08:26 Neut # 3.6 K/uL (1.8-7.0) 07/01/17 08:26 Lymph # 1.0 K/uL (1.0-4.3) 07/01/17 08:26 [place] # 0.7 K/uL (0.0-0.8) 07/01/17 08:26 Eos # 0.4 K/uL (0.0-0.7) 07/01/17 08:26 Baso # 0.0 K/uL (0.0-0.2) 07/01/17 08:26 Neutrophils % (Manual) 84 % (50-75) H 06/26/17 20:26 Band Neutrophils % 3 % (0-2) H 06/26/17 20:26 Lymphocytes % (Manual) 8 % (20-40) L 06/26/17 20:26 Monocytes % (Manual) 5 % (0-10) 06/26/17 20:26 Differential Comment 06/30/17 06:52 Platelet Estimate Normal (NORMAL) 06/26/17 20:26 Large Platelets Present 06/26/17 20:26 Microcytosis (manual) Slight 06/26/17 20:26 PT 11.5 SECONDS (9.7-12.2) 06/26/17 20:46 INR 1.0 06/26/17 20:46 APTT 22 SECONDS (21-34) 06/26/17 20:46 Sodium 136 mmol/L (132-148) 07/01/17 08:26 Potassium 3.4 mmol/L (3.6-5.2) L 07/01/17 08:26 Chloride 100 mmol/L (98-107) 07/01/17 08:26 Carbon Dioxide 25 mmol/L (22-30) 07/01/17 08:26 Anion Gap 14 (10-20) 07/01/17 08:26 BUN 14 mg/dL (7-17) 07/01/17 08:26 Creatinine 0.8 mg/dL (0.7-1.2) 07/01/17 08:26 Est GFR ( Amer) > 60 07/01/17 08:26 Est GFR (Non-Af Amer) > 60 07/01/17 08:26 POC Glucose (mg/dL) 95 mg/dL (65-110) 06/27/17 17:19 Random Glucose 89 mg/dL (65-105) 07/01/17 08:26 Hemoglobin A1c 5.3 % (4.2-6.5) 06/26/17 23:34 Calcium 8.4 mg/dl (8.6-10.4) L 07/01/17 08:26 Phosphorus 3.5 mg/dL (2.5-4.5) 07/01/17 08:26 Magnesium 1.8 mg/dL (1.6-2.3) 07/01/17 08:26 Total Bilirubin 0.8 mg/dL (0.2-1.3) 07/01/17 08:26 AST 24 U/L (14-36) 07/01/17 08:26 ALT 29 U/L (9-52) 07/01/17 08:26 Alkaline Phosphatase 54 U/L (38-126) 07/01/17 08:26 Total Creatine Kinase 281 U/L (30-135) H 06/27/17 11:54 CK-MB (Mass) 7.44 ng/mL (0.0-3.38) H 06/27/17 11:54 Troponin I 1.3200 ng/mL (0.00-0.120) H* 06/27/17 11:54 Total Protein 6.4 g/dL (6.3-8.3) 07/01/17 08:26 Albumin 3.5 g/dL (3.5-5.0) 07/01/17 08:26 Globulin 3.0 gm/dL (2.2-3.9) 07/01/17 08:26 Albumin/Globulin Ratio 1.2 (1.0-2.1) 07/01/17 08:26 Triglycerides 77 mg/dL (0-149) D 06/27/17 06:32 Cholesterol 179 mg/dL (0-199) 06/27/17 06:32 LDL Cholesterol Direct 105 mg/dL (0-129) 06/27/17 06:32 HDL Cholesterol 40 mg/dL (30-70) 06/27/17 06:32 Lipase 36 U/L (23-300) 06/26/17 20:26 Thyroxine (T4) 10.5 ug/dL (5.5-11.0) 06/26/17 23:34 TSH 3rd Generation 0.77 mIU/L (0.46-4.68) 06/26/17 23:34 Urine Color Straw (YELLOW) 06/26/17 22:45 Urine Clarity Clear (Clear) 06/26/17 22:45 Urine pH 7.0 (5.0-8.0) 06/26/17 22:45 Ur Specific [place] 1.043 (1.003-1.030) H 06/26/17 22:45 Urine Protein 1+ mg/dL (NEGATIVE) H 06/26/17 22:45 Urine Glucose (UA) 1+ mg/dL (Normal) 06/26/17 22:45 Urine Ketones Trace mg/dL (NEGATIVE) 06/26/17 22:45 Urine Blood Negative (NEGATIVE) 06/26/17:45 Urine Nitrate Negative (NEGATIVE) 06/26/17:45 Urine Bilirubin Negative (NEGATIVE) 06/26/17 22:45 Urine Urobilinogen Normal mg/dL (0.2-1.0) 06/26/17 22:45 Ur Leukocyte Esterase Neg Agnes/uL (Negative) 06/26/17:45 Urine RBC (Auto) 1 /hpf (0-3) 06/26/17 22:45 - Hospital Course Hospital Course: HPI: 61 Female with PMHx of Breast Cancer (in complete remission) presents to the ED with abdominal pain and diarrhea x 1 day. She reports she was fine up until 11am this morning when she started to experience nausea, crampy abdominal pain localized to her upper abdomen, and nonbloody diarrhea. She did not take anything for the pain or diarrhea. She has not had the desire to eat, only tolerating liquids. At home she stated she felt feverish but no recorded temperature. Admitted to chest discomfort which she attributed to being nauseous. Denied fever, chills, SOB, n/v/c, or urinary symptoms. PMHx: Breast Cancer (1994- lumpectomy and radiation- complete remission) PSHx: Lumpectomy Meds: Denied All: NKDA SHx: Admitted to smoking 5-10 cigs a day >20-30 years ago, wine on weekends, smokes marijuana FHx: Unremarkable PMD: Francheska Velazquez (last seen- 2017 physical) Hospital Course: Patient was admitted to the hospital and found to have an NSTEMI. Cardiovascular Operating Room Nurse Dr. Gillette was consulted. EKG showed bradycardia and prolonged QT. Troponins were found to be elevated during hospitalization 0.4540, 1.5500, 1.3200. Echo was performed which showed Left ventricle systolic function is mildly impaired. The ejection fraction is 50-55%. The left ventricular diastolic function is normal. There is mild pulmonary hypertension Patient was sent for cath with Dr. Gillette which showed normal coronaries with an EF of 55%. After the catheterization procedure patient was transferred to the ICU for monitoring. During hospitalization patient was also found to have diverticulitis. CT Ab/ Pelvis: Findings compatible with acute diverticulitis of sigmoid colon. Recommend endoscopy following resolution. Apparent mild asymmetric gallbladder wall thickening or fluid. Suggest ultrasound. Adrenal lesion. Recommend further evaluation with unenhanced abdominal CT or MR. Alternatively, if there is a history of malignancy, consider PET. Probable fibroid uterus. Patient was started on Ciprofloxacin and Flagyl. Due patient's prolonged QT interval Dr. Stevie Snider was consulted. Patient will follow him as an out patient on Jul at 11am.Planning to do tilt table test, loop recorder ,EP study and QT stress test. Patient must avoid QT prolongation medications. Genetic studies and screening the family advised. Also during patient's hospitalization neurologist Dr. Coats was consulted due to syncope. EEG was normal and CTA of the head and neck were normal. Patient was seen and examined at bedside in the AM. Patient denies chest pain, palpitations, difficulty breathing, fever, nausea, or vomiting. Discussed with patient: DO NOT drive, climb, ladders, swimming and avoid any high risk situations. Also discussed with patient she should always notify a physician about her QT prolongation syndrome. Patient stable for discharge home per Dr. Carballo. Patient to start new medications: - Aspirin 81mg one table daily - Crestor 10mg one tablet in the evening. - Flagyl 250mg 3 times per day for 7 more days Discussed with patient: DO NOT drive, climb, ladders, swimming and avoid any high risk situations. Patient should always notify a physician about her QT prolongation syndrome. Patient should follow up with primary doctor in one week. Patient should follow up with Dr. Snider in one week. Please call to make appointment: Please return to the emergency room if symptoms return. This is a summary of patient's hospital course, please see chart for full details. Discharge Exam - Head Exam Head Exam: NORMAL INSPECTION - Eye Exam Eye Exam: EOMI, Normal appearance - ENT Exam ENT Exam: Mucous Membranes Moist - Respiratory Exam Respiratory Exam: Clear to PA & Lateral, NORMAL BREATHING PATTERN - Cardiovascular Exam Cardiovascular Exam: REGULAR RHYTHM, +S1, +S2 - GI/Abdominal Exam GI & Abdominal Exam: Normal Bowel Sounds. absent: Tenderness - Extremities Exam Extremities exam: normal inspection - Neurological Exam Neurological exam: Alert, Oriented x3 - Psychiatric Exam Psychiatric exam: Normal Affect, Normal Mood - Skin Skin Exam: Normal Color, Warm Discharge Plan - Discharge Medications Prescriptions: Aspirin [Aspirin Chewable] 81 mg PO DAILY #30 chew metroNIDAZOLE [Flagyl] 250 mg PO Q8H #20 tab Rosuvastatin Calcium [Crestor] 10 mg PO HS #30 tab - Follow Up Plan Condition: FAIR Disposition: HOME/ ROUTINE Instructions: Diverticulitis (DC), Acute Nausea and Vomiting (DC), Acute Abdominal Pain (DC)
== END 2017-07-01 14:35 | disposition home or self-care (01) | DRG 281 ==
LOC: C.ER 19:06 → C.9E 22:37 → C.6T 06-27 00:06 → C.9I 06-27 15:48 → C.5S 06-30 22:34
PROVIDERS: ADMIT Family Medicine; ATTEND Family Medicine
PROC: 4A023N7 Measurement of Cardiac Sampling and Pressure, Left Heart, Percutaneous Approach (ICD-10-PCS; principal; 2017-06-27)
PROC: 5A1223Z Performance of Cardiac Pacing, Continuous (ICD-10-PCS; 2017-06-27)
PROC: B2151ZZ Fluoroscopy of Left Heart using Low Osmolar Contrast (ICD-10-PCS; 2017-06-27)
PROC: B2111ZZ Fluoroscopy of Multiple Coronary Arteries using Low Osmolar Contrast (ICD-10-PCS; 2017-06-27)
DX: I21.4 Non-ST elevation (NSTEMI) myocardial infarction (principal); K57.32 Diverticulitis of large intestine without perforation or abscess without bleeding; I27.20 Pulmonary hypertension, unspecified; I11.9 Hypertensive heart disease without heart failure; I51.4 Myocarditis, unspecified; R00.1 Bradycardia, unspecified; E27.9 Disorder of adrenal gland, unspecified; D25.9 Leiomyoma of uterus, unspecified; F12.90 Cannabis use, unspecified, uncomplicated; F17.210 Nicotine dependence, cigarettes, uncomplicated; Z85.3 Personal history of malignant neoplasm of breast; Z92.3 Personal history of irradiation

== ENCOUNTER 2017-07-05 08:28 | Emergency (ER) | payer BC ==
[2017-07-05 08:28] VITALS: BMI 23.6
[2017-07-05] MEDS ORDERED: DiphenhydrAMINE 50 mg/ml Inj IVP STA (09:39)
--- NOTE | 2017-07-05 09:39 | C.PDOC ---
History Of Present Illness 61 year old female presents to the ED c/o a worsening allergic reaction for the past 3 days. Patient was discharged from the hospital on 07/01 status post myocarditis and diverticulitis, patient is currently on chewable aspirin 81 mg PO daily, metroNIDAZOLE and Rosuvastatin Calcium. Patient reports that initial rash was localized on her right hip but now is generalized with an itchy sensation. Patient states she stopped taking her medications 2 days ago, started on medrol yesterday but with no improvement. Patient denies any prior known allergies, also denies SOB, swelling, dizziness, nausea, vomit. Patient is SP an echo and cath, patient has an ejection fraction of 50-55%. The left ventricular diastolic function is normal. There is mild pulmonary hypertension seen by Dr. Gillette which showed normal coronaries with and ejection fraction of 55%. WORSENING ALLERGIC REACTION X 3 DAYS. DC 07/01 SP MYOCARDITIS AND DIVERTICULITIS. ON Aspirin [Aspirin Chewable] 81 mg PO DAILY AND metroNIDAZOLE AND Rosuvastatin Calcium [Crestor]. NO PRIOR KNOWN ALLERGIES. INITIAL ONSET RASH R HIP NOW GENERALIZED. +ITCH. NO ASSOC SOB, SWELLING, DIZZY NV. PS STOPPED MEDS 2 DAYS AGO, STARTED ON MEDROL YEST BUT NO IMPROVE. SP ECHO AND CATH: ejection fraction is 50-55%. The left ventricular diastolic function is normal. There is mild pulmonary hypertension Dr. Gillette which showed normal coronaries with an EF of 55%. EXAM MILD DIST NONTOXIC HEENT NO ANGIOEDEMA NO STRIDOR. NO MUCOSAL LESIONS LUNGS CTA B/L NO W/R/R SKIN +GEN SMALL CONFLUENCE HIVES. BLANCHING, PAPULAR. EXT NO EDEMA REMAINDER NEG Time Seen by Provider: 07/05/17 08:50 Chief Complaint (Nursing): Abnormal Skin Integrity History Per: Patient History/Exam Limitations: no limitations Onset/Duration Of Symptoms: Days Current Symptoms Are (Timing): Still Present Associated Symptoms: Skin Rash Home/EMS Treatment: Other (solumedrol) Severity: Mild Recent travel outside of the [place]: No Additional History Per: Patient Past Medical History Reviewed: Historical Data, Nursing Documentation, Vital Signs Vital Signs: Last Vital Signs Temp 97.9 F 07/05/17 08:37 Pulse 84 07/05/17 08:37 Resp 18 07/05/17 09:05 BP 129/79 07/05/17 08:37 Pulse Ox 100 07/05/17 10:34 - Medical History PMH: Diverticulitis Denies: Chronic Kidney Disease Other Surgeries: Cath - [facility] Procedures ENDOSC POLYPECTOMY OF LG INTEST (08/28/13) FLUOROSCOPY OF LEFT HEART USING LOW OSMOLAR CONTRAST (06/26/17) FLUOROSCOPY OF MULT COR ART USING L OSM CONTRAST (06/26/17) MEASURE OF CARDIAC SAMPL & PRESSURE, L HEART, PERC APPROACH (06/26/17) PERFORMANCE OF CARDIAC PACING, CONTINUOUS (06/26/17) Family History: States: Unknown Family Hx - Social History Hx Alcohol Use: No Hx Substance Use: Yes (Occ Marijuana use) - Immunization History Hx Tetanus Toxoid Vaccination: No Hx Influenza Vaccination: No Hx Pneumococcal Vaccination: No Review Of Systems Constitutional: Negative for: Fever, Chills Cardiovascular: Negative for: Chest Pain Respiratory: Negative for: Cough, Shortness of Breath Gastrointestinal: Negative for: Nausea, Vomiting, Abdominal Pain Genitourinary: Negative for: Dysuria, Hematuria Skin: Positive for: Rash, Other Neurological: Negative for: Weakness, Numbness, Headache, Dizziness Physical Exam - Physical Exam Appears: Non-toxic, Other (Mild distress) Skin: Warm, Dry, Other (+ general small confluence, hives, blanching, papular) Head: Atraumatic, Normacephalic Eye(s): bilateral: Normal Inspection Ear(s): Bilateral: Normal Nose: No Discharge, No Deformity Oral Mucosa: Moist, No Other (no mucosal lesions) Tongue: No Swelling Lips: No Swelling, No Other (no angioedema) Throat: Normal, No Erythema, No Exudate Neck: Normal ROM, Supple Cardiovascular: Rhythm Regular, No Murmur Respiratory: Normal Breath Sounds, No Rales, No Rhonchi, No Wheezing, No Other ( stridor) Gastrointestinal/Abdominal: Soft, No Tenderness, No Guarding, No Rebound Extremity: Normal ROM, No Pedal Edema, No Calf Tenderness, Capillary Refill (< 2 seconds), No Deformity, No Swelling Pulses: Left Dorsalis Pedis: Normal, Right Dorsalis Pedis: Normal Neurological/Psych: Oriented x3, Normal Speech, Normal Cognition Gait: Steady ED Course And Treatment O2 Sat by Pulse Oximetry: 100 (On RA) Pulse Ox Interpretation: Normal Progress - Re-Evaluation Re-evaluation Note: 07/05/17 11:13 RASH IMPROVED COMPARED TO PRIOR. NARD NO ANGIOEDEMA PS FEELS BETTER. - Data Reviewed Data Reviewed: Old records Medical Decision Making Medical Decision Making: Impression : generalized skin rash Plan: * Benadryl 50 mg IVP * Pepcid 20 mg IVP * Solumedrol 80 mg IV Disposition Counseled Patient/Family Regarding: Diagnosis, Need For Followup, Rx Given - Disposition Referrals: YOUR,PMD [Other] Disposition: HOME/ ROUTINE Disposition Time: 11:14 Condition: IMPROVED Additional Instructions: START MEDROL DOSE PACK AFTER COMPLETING PREDNISONS 60 MG RX. TAKE BENADRYL NEEDED FOR ITCH. RETURN IF WORSENING SYMPTOMS. Prescriptions: predniSONE [Prednisone] 60 mg PO DAILY #12 tab Instructions: Urticaria (GEN) Forms: [facility] (Salvadorean), Work Excuse - Clinical Impression Clinical Impression: Allergic reaction - Scribe Statement The provider has reviewed the documentation as recorded by the Scribe Bartolo Garcia All medical record entries made by the Scribe were at my direction and personally dictated by me. I have reviewed the chart and agree that the record accurately reflects my personal performance of the history, physical exam, medical decision making, and the department course for this patient. I have also personally directed, reviewed, and agree with the discharge instructions and disposition.
[2017-07-05] MEDS ORDERED: DiphenhydrAMINE 50 mg/ml Inj ONE (09:56)
[2017-07-05] MEDS ORDERED: MethylPREDNISolone 40 mg Vial ONE (09:56)
[2017-07-05 11:45] VITALS: BP 116/74; PULSE 74; RESP 16; TEMP 98.2; O2SAT 98
== END 2017-07-05 11:45 | disposition home or self-care (01) ==
LOC: C.ER 08:28
DX: L50.0 Allergic urticaria (principal)
CPT/HCPCS: 96374; 96375; 99285; J1200; J2930

== ENCOUNTER 2018-07-19 17:27 | Inpatient (IN) | payer BC, OTHER ==
[2018-07-19 17:28] VITALS: BMI 23.6
[2018-07-19] MEDS ORDERED: Sodium Chloride 0.9% 1,000 ML IV ONE (18:46)
[2018-07-19] MEDS ORDERED: Piperacillin/Tazobact 3.375 gm 100 ML IV STA (18:47)
[2018-07-19 18:55] LABS: BASO % 0.1 % (0.0-2.0); EOS % 0.1 % (0.0-4.0); HEMOGLOBIN 11.4 g/dL (11.0-16.0); LYMPH # 0.8 K/uL (1.0-4.3); LYMPH % 6.2 % (20.0-40.0); MEAN CELL VOLUME 86.1 fL (81.0-99.0); MEAN CORPUSCULAR HEMOGLOBIN 27.3 pg (27.0-31.0); MEAN CORPUSCULAR HGB CONC 31.7 g/dL (33.0-37.0); MEAN PLATELET VOLUME 11.7 fL (7.2-11.7); MONO # 0.6 K/uL (0.0-0.8); MONO % 4.4 % (0.0-10.0); NEUT # 11.6 K/uL (1.8-7.0); NEUT % 89.2 % (50.0-75.0); PLATELET COUNT 216 K/uL (130-400); RBC 4.17 Mil/uL (3.80-5.20); RED CELL DISTRIBUTION WIDTH 14.1 % (11.5-14.5)
[2018-07-19] MEDS ORDERED: Iodixanol 320 MG/ML 100 ML BOTTLE IV ONE (19:00)
--- NOTE | 2018-07-19 19:00 | C.PDOC ---
History Of Present Illness 62 year old female presents to ED with complaint of jose-umbilical pain for the past 2 days. She states that this feels much like her prior episodes of diverticulitis. Patient denies nausea, vomiting, and diarrhea. Time Seen by Provider: 07/19/18 18:45 Chief Complaint (Nursing): Abdominal Pain History Per: Patient History/Exam Limitations: no limitations Onset/Duration Of Symptoms: Days (2) Current Symptoms Are (Timing): Still Present Location Of Pain/Discomfort: Periumbilical Quality Of Discomfort: "Pain" Associated Symptoms: denies: Nausea, Vomiting, Diarrhea Past Medical History Reviewed: Historical Data, Nursing Documentation, Vital Signs Vital Signs: Last Vital Signs Temp 98.8 F 07/19/18 17:31 Pulse 64 07/19/18 17:31 Resp 20 07/19/18 17:31 BP 190/82 H 07/19/18 17:31 Pulse Ox 98 07/19/18 17:31 - Medical History PMH: Diverticulitis Denies: Chronic Kidney Disease Surgical History: No Surg Hx - [facility] Procedures ENDOSC POLYPECTOMY OF LG INTEST (08/28/13) FLUOROSCOPY OF LEFT HEART USING LOW OSMOLAR CONTRAST (06/26/17) FLUOROSCOPY OF MULT COR ART USING L OSM CONTRAST (06/26/17) MEASURE OF CARDIAC SAMPL & PRESSURE, L HEART, PERC APPROACH (06/26/17) PERFORMANCE OF CARDIAC PACING, CONTINUOUS (06/26/17) Family History: States: Unknown Family Hx - Social History Hx Alcohol Use: No Hx Substance Use: Yes (Occ Marijuana use) - Immunization History Hx Tetanus Toxoid Vaccination: No Hx Influenza Vaccination: No Hx Pneumococcal Vaccination: No Review Of Systems Constitutional: Negative for: Fever, Chills, Weakness Gastrointestinal: Positive for: Abdominal Pain (jose-umbilical). Negative for: Nausea, Vomiting, Diarrhea Neurological: Negative for: Weakness, Numbness, Dizziness Physical Exam - Physical Exam Appears: Non-toxic, Other (mild distress, obese) Skin: Normal Color, Warm, Dry Head: Atraumatic, Normacephalic Neck: Normal ROM, Supple Gastrointestinal/Abdominal: No Bowel Sounds (diminished), Tenderness (jose-u mbilical) Extremity: Capillary Refill (<2 seconds) Neurological/Psych: Oriented x3, Normal Speech, Normal Cognition ED Course And Treatment - Laboratory Results Result Diagrams: 07/19/18 18:51 07/19/18 18:51 Lab Interpretation: Abnormal ECG: Interpreted By Me ECG Rhythm: Sinus Rhythm ECG Interpretation: Normal Rate From EC O2 Sat by Pulse Oximetry: 98 Pulse Ox Interpretation: Normal - Radiology CXR: Interpreted by Me CXR Interpretation: Yes: No Acute Disease Progress Note: CT abdomen/pelvis and CXR ordered for patient. Labs ordered with blood culture and UA for patient. Patient given Zofran IVP, Toradol IVP, NaCl IV, Zosyn IV, and Morphine IV. Reevaluation Time: 22:12 Reassessment Condition: Improved - Physician Consult Information Outcome Of Conversation: 2210: d/w PMD, brittni Page to admit Medical Decision Making Medical Decision Making: sigmoid diverticulitis allergy to Flagyl- held Disposition Doctor Will See Patient In The: Hospital Counseled Patient/Family Regarding: Studies Performed, Diagnosis - Disposition Disposition: HOSPITALIZED Disposition Time: 22:13 Condition: GOOD Forms: [facility] (Romanian) - Clinical Impression Clinical Impression: Diverticulitis - Scribe Statement The provider has reviewed the documentation as recorded by the Scribe (Carole Wadsworth) All medical record entries made by the Scribe were at my direction and personally dictated by me. I have reviewed the chart and agree that the record accurately reflects my personal performance of the history, physical exam, medical decision making, and the department course for this patient. I have also personally directed, reviewed, and agree with the discharge instructions and disposition.
[2018-07-19] MEDS ORDERED: Morphine 4 MG/ML VIAL ONE (19:04)
[2018-07-19] MEDS ORDERED: Sodium Chloride 0.9% 1,000 ML ONE (19:05)
[2018-07-19 19:09] LABS: ALB/GLOB RATIO 1.3 (1.0-2.1); ALBUMIN 4.9 g/dL (3.5-5.0); ALT/SGPT 11 U/L (9-52); AST/SGOT 23 U/L (14-36); BLOOD UREA NITROGEN 17 mg/dL (7-17); CALCIUM 10.1 mg/dl (8.6-10.4); GFR NON-AFRICAN AMERICAN > 60; LIPASE 35 U/L (23-300)
[2018-07-19 19:49] LABS: BANDS 1 % (0-2); LYMPHOCYTE 8 % (20-40); MONOCYTE 5 % (0-10); NEUTROPHIL 86 % (50-75); PLATELET ESTIMATE NORMAL (NORMAL); TOTAL CELLS COUNTED 100
[2018-07-19] MEDS ORDERED: Piperacillin/Tazobact 3.375 gm 100 ML IVPB ONE (20:03)
[2018-07-19 21:03] LABS: SQUAMOUS EPITHIAL 1 /hpf (0-5); URINE BILIRUBIN NEGATIVE (NEGATIVE); URINE BLOOD NEGATIVE (NEGATIVE); URINE CLARITY Clear (Clear); URINE COLOR Yellow (YELLOW); URINE GLUCOSE (UA) 1+ mg/dL (Normal); URINE LEUKOCYTE ESTERASE NEG Leu/uL (Negative); URINE PROTEIN 2+ mg/dL (NEGATIVE); URINE UROBILINOGEN NORMAL mg/dL (0.2-1.0)
[2018-07-19] MEDS ORDERED: Dextrose 5%-0.225% NS 1,000 ML IV ONE (22:49)
[2018-07-19] MEDS: Dextrose 5%/0.45% NS 1,000 ML IV SCH (22:50)
[2018-07-20] MEDS ORDERED: Morphine 4 MG/ML VIAL ONE (00:25)
[2018-07-20 02:35] VITALS: RESP 20
[2018-07-20] MEDS: Piperacillin/Tazobact 3.375 GM in Sodium Chloride 100 ML IVPB SCH ×3 (03:35→20:37)
[2018-07-20 07:14] LABS: BASO % 0.3 % (0.0-2.0); HEMOGLOBIN 10.6 g/dL (11.0-16.0); LYMPH # 0.9 K/uL (1.0-4.3); LYMPH % 6.9 % (20.0-40.0); MEAN CELL VOLUME 86.4 fL (81.0-99.0); MEAN CORPUSCULAR HEMOGLOBIN 28.1 pg (27.0-31.0); MEAN CORPUSCULAR HGB CONC 32.5 g/dL (33.0-37.0); MEAN PLATELET VOLUME 12.5 fL (7.2-11.7); MONO # 0.7 K/uL (0.0-0.8); MONO % 5.4 % (0.0-10.0); NEUT # 10.8 K/uL (1.8-7.0); NEUT % 87.4 % (50.0-75.0); PLATELET COUNT 187 K/uL (130-400); RBC 3.77 Mil/uL (3.80-5.20); RED CELL DISTRIBUTION WIDTH 13.8 % (11.5-14.5); WHITE BLOOD COUNT 12.3 K/uL (4.8-10.8)
[2018-07-20 07:22] LABS: ALB/GLOB RATIO 1.3 (1.0-2.1); ALBUMIN 4.4 g/dL (3.5-5.0); ALT/SGPT 10 U/L (9-52); AST/SGOT 27 U/L (14-36); BLOOD UREA NITROGEN 18 mg/dL (7-17); CALCIUM 9.3 mg/dl (8.6-10.4); GFR NON-AFRICAN AMERICAN > 60
--- NOTE | 2018-07-20 08:20 | CP.PCM.HP ---
History of Present Illness - History of Present Illness History of Present Illness: CC: Vomiting 62 y/o d female with HTN & Hyperlipidemia. Patient has increasing cough x 5 days. Mucus is now greenish. 2 days ago start having LLQ pain and n/v. She was seen in office and abd showed guarding and sent to ER. Present on Admission - Present on Admission Any Indicators Present on Admission: Yes History of DVT/PE: No History of Uncontrolled Diabetes: No Urinary Catheter: No Decubitus Ulcer Present: No Review of Systems - Review of Systems Systems not reviewed;Unavailable: Acuity of Condition - Constitutional Constitutional: absent: Anorexia, Headache, Sleep Apnea - EENT Eyes: absent: Blurred Vision, Loss of Peripheral Vision, Pain, Requires Corrective Lenses, Sees Flashes, Loss of Vision Ears: Decreased Hearing. absent: Ear Pain, Dizziness Nose/Mouth/Throat: absent: Epistaxis, Nose Pain, Change in Voice, Hoarsness, Odynophagia - Cardiovascular Cardiovascular: Dyspnea. absent: Chest Pain, Diaphoresis, Edema, Leg Edema, Leg Ulcers, Paroxysmal Nocturnal Dyspnea, Pedal Edema - Respiratory Respiratory: Cough, Chest Congestion, Excessive Mucous Production, Change in Muc ous Color - Gastrointestinal Gastrointestinal: absent: Abdominal Pain, Bloating, Fecal Incontinence, Hematochezia - Genitourinary Genitourinary: absent: Dysuria, Pyuria, Nocturia, Urinary Urgency - Musculoskeletal Musculoskeletal: Abnormal Gait. absent: Atrophy, Back Pain, Muscle Weakness, Myalgias, Neck Pain, Numbness - Integumentary Integumentary: absent: Alopecia, New Lesions, Rash, Skin Pain, Wounds Past Patient History - Infectious Disease Hx of Infectious Diseases: None - Past Medical History & Family History Past Medical History?: Yes - Past Social History Smoking Status: Former Smoker - CARDIAC Hx Cardiac Disorders: No - PULMONARY Hx Respiratory Disorders: No - NEUROLOGICAL Hx Neurological Disorder: No - HEENT Hx HEENT Problems: No - RENAL Hx Chronic Kidney Disease: No - ENDOCRINE/METABOLIC Hx Endocrine Disorders: No - HEMATOLOGICAL/ONCOLOGICAL Hx Blood Disorders: No - INTEGUMENTARY Hx Dermatological Problems: No - MUSCULOSKELETAL/RHEUMATOLOGICAL Hx Falls: No - GASTROINTESTINAL Hx Colitis: Yes Hx Diverticulitis: Yes - GENITOURINARY/GYNECOLOGICAL Hx Genitourinary Disorders: No Other/Comment: Breast Ca 1994-in remission - PSYCHIATRIC Hx Substance Use: No (denies) - SURGICAL HISTORY Hx Surgeries: Yes Other/Comment: RIGHT BREAST LUMPECTOMY 1994 - ANESTHESIA Hx Anesthesia: Yes Hx Anesthesia Reactions: No Hx Malignant Hyperthermia: No Meds Allergies/Adverse Reactions: Allergies Allergy/AdvReac Type Severity Reaction Status Date / Time metronidazole [From Flagyl] Allergy RASH Verified 07/19/18 17:33 rosuvastatin [From Crestor] Allergy RASH Verified 07/19/18 17:34 Physical Exam - Constitutional Appears: Well - Head Exam Head Exam: NORMAL INSPECTION - Eye Exam Eye Exam: Normal appearance - ENT Exam ENT Exam: Mucous Membranes Moist - Neck Exam Neck exam: Positive for: Full Rom. Negative for: Lymphadenopathy, Normal Inspec tion - Respiratory Exam Respiratory Exam: Decreased Breath Sounds, Rhonchi, Wheezes. absent: Rales - Cardiovascular Exam Cardiovascular Exam: REGULAR RHYTHM, +S1, +S2. absent: Gallop, JVD, Systolic Murmur - GI/Abdominal Exam GI & Abdominal Exam: Soft. absent: Guarding, Rebound, Tenderness - Extremities Exam Extremities exam: Positive for: full ROM, normal capillary refill. Negative for: calf tenderness, joint swelling, pedal edema Results - Vital Signs Recent Vital Signs: Last Vital Signs Temp 97 F L 07/20/18 02:00 Pulse 52 L 07/20/18 02:00 Resp 20 07/20/18 02:00 BP 124/68 07/20/18 02:00 Pulse Ox 97 07/20/18 02:00 - Labs Result Diagrams: 07/20/18 07:00 07/20/18 07:00 Labs: Laboratory Results - last 24 hr 07/19/18 07/19/18 07/19/18 18:51 18:51 20:49 WBC 13.0 H D RBC 4.17 Hgb 11.4 Hct 35.9 MCV 86.1 MCH 27.3 MCHC 31.7 L RDW 14.1 Plt Count 216 MPV 11.7 Neut % (Auto) 89.2 H Lymph % (Auto) 6.2 L [place] % (Auto) 4.4 Eos % (Auto) 0.1 Baso % (Auto) 0.1 Neut # (Auto) 11.6 H Lymph # (Auto) 0.8 L [place] # (Auto) 0.6 Eos # (Auto) 0.0 Baso # (Auto) 0.0 Neutrophils % (Manual) 86 H Band Neutrophils % 1 Lymphocytes % (Manual) 8 L Monocytes % (Manual) 5 Platelet Estimate Normal Sodium 138 Potassium 3.5 L Chloride 100 Carbon Dioxide 25 Anion Gap 17 BUN 17 Creatinine 0.9 Est GFR ( Amer) > 60 Est GFR (Non-Af Amer) > 60 Random Glucose 178 H D Calcium 10.1 Total Bilirubin 1.4 H AST 23 ALT 11 Alkaline Phosphatase 90 Total Protein 8.5 H Albumin 4.9 Globulin 3.6 Albumin/Globulin Ratio 1.3 Lipase 35 Urine Color Yellow Urine Clarity Clear Urine pH 5.0 Ur Specific [place] 1.027 Urine Protein 2+ H Urine Glucose (UA) 1+ Urine Ketones 2+ H Urine Blood Negative Urine Nitrate Negative Urine Bilirubin Negative Urine Urobilinogen Normal Ur Leukocyte Esterase Neg Urine WBC (Auto) 1 Urine RBC (Auto) 1 Ur Squamous Epith Cells 1 07/20/18 07/20/18 07:00 07:00 WBC 12.3 H RBC 3.77 L Hgb 10.6 L Hct 32.6 L MCV 86.4 MCH 28.1 MCHC 32.5 L RDW 13.8 Plt Count 187 MPV 12.5 H Neut % (Auto) 87.4 H Lymph % (Auto) 6.9 L [place] % (Auto) 5.4 Eos % (Auto) 0.0 Baso % (Auto) 0.3 Neut # (Auto) 10.8 H Lymph # (Auto) 0.9 L [place] # (Auto) 0.7 Eos # (Auto) 0.0 Baso # (Auto) 0.0 Neutrophils % (Manual) Band Neutrophils % Lymphocytes % (Manual) Monocytes % (Manual) Platelet Estimate Sodium 139 Potassium 3.8 Chloride 102 Carbon Dioxide 27 Anion Gap 14 BUN 18 H Creatinine 0.9 Est GFR ( Amer) > 60 Est GFR (Non-Af Amer) > 60 Random Glucose 133 H D Calcium 9.3 Total Bilirubin 1.2 AST 27 ALT 10 Alkaline Phosphatase 73 Total Protein 7.7 Albumin 4.4 Globulin 3.4 Albumin/Globulin Ratio 1.3 Lipase Urine Color Urine Clarity Urine pH Ur Specific [place] Urine Protein Urine Glucose (UA) Urine Ketones Urine Blood Urine Nitrate Urine Bilirubin Urine Urobilinogen Ur Leukocyte Esterase Urine WBC (Auto) Urine RBC (Auto) Ur Squamous Epith Cells - EKG Data EKG Interpreted by: Myself EKG shows normal: Sinus rhythm (LVH by voltage) Assessment & Plan - Assessment and Plan (Free Text) Assessment: Sigmoid Diverticulitis; Ac Bronchitis HTN, Hyperlipidemia On Zosyn/ duoNeb Slow increase diet Supportive care
--- NOTE | 2018-07-20 09:13 | RAD ---
HISTORY: adm COMPARISON: No prior. TECHNIQUE: Chest, one view. FINDINGS: Examination limited by habitus and overlying wires, leads, and devices. LUNGS: No focal consolidation. Please note that chest x-ray has limited sensitivity for the detection of pulmonary masses. PLEURA: No significant pleural effusion identified. No definite pneumothorax . CARDIOVASCULAR: Heart size appears within normal limits. Atherosclerotic calcification of the aorta. OSSEOUS STRUCTURES: No acute osseous abnormality identified. VISUALIZED UPPER ABDOMEN: Unremarkable. OTHER FINDINGS: None. IMPRESSION: Limited study. No focal consolidation.
[2018-07-20 09:40] LABS: HYPOCHROMIC SLIGHT; LYMPHOCYTE 7 % (20-40); MONOCYTE 6 % (0-10); NEUTROPHIL 86 % (50-75); OVALOCYTES SLIGHT; PLATELET ESTIMATE NORMAL (NORMAL); REACTIVE LYMPHOCYTES 1 % (0-0); TOTAL CELLS COUNTED 100
[2018-07-20] MEDS: Dextrose 5%/0.45% NS 1,000 ML IV SCH ×2 (10:04→19:40)
--- NOTE | 2018-07-20 10:58 | CT ---
Date of service: 07/19/2018 PROCEDURE: CT Abdomen and Pelvis with contrast HISTORY: ? diverticulitis COMPARISON: CT abdomen and pelvis with contrast performed 06/26/17 TECHNIQUE: Contrast dose: 100 cc Visipaque 320 IV Radiation dose: Total exam DLP = 345.9 mGy-cm. This CT exam was performed using one or more of the following dose reduction techniques: Automated exposure control, adjustment of the mA and/or kV according to patient size, and/or use of iterative reconstruction technique. FINDINGS: LOWER THORAX: No visible consolidation, pleural effusion, or pneumothorax. Small hiatal hernia. LIVER: 2.4 x 1.2 cm hypodense region adjacent to the falciform ligament, possibly focal fatty infiltration. GALLBLADDER AND BILE DUCTS: Unremarkable. PANCREAS: Unremarkable. SPLEEN: Unremarkable. ADRENALS: 1.2 cm indeterminate left adrenal gland nodule. The right adrenal gland appears unremarkable. KIDNEYS AND URETERS: The kidneys enhance symmetrically. No hydronephrosis or obstructing calculus identified. VASCULATURE: No aortic aneurysm. No atherosclerotic calcification or mural plaque present. BOWEL: Stomach is nondistended. Lack of oral contrast limits evaluation for bowel pathology. Bowel loops appear within normal limits of caliber without evidence of obstruction. Marked thickening of the sigmoid colon with associated inflammatory changes and small fluid consistent with acute diverticulitis. APPENDIX: The appendix appears within normal limits of caliber. No secondary signs of acute appendicitis. PERITONEUM: No significant free fluid. No definite free air. LYMPH NODES: No bulky adenopathy identified. BLADDER: Under distended urinary bladder appears otherwise unremarkable. REPRODUCTIVE: Uterus is present with large coarse calcified masses consistent with degenerating fibroids. BONES: Vertebral body hemangiomas at T10, L1, L3, and L4. Vacuum disc phenomenon at L5-S1. OTHER FINDINGS: None. IMPRESSION: Marked thickening of the sigmoid colon with associated inflammatory changes and small fluid consistent with acute diverticulitis. Recommend follow-up upon completion of treatment to ensure resolution and exclude possibility of underlying neoplasm. 1.2 cm indeterminate left adrenal gland nodule. If indicated, suggest evaluation with dedicated cross-sectional imaging. 2.4 x 1.2 cm hypodense region adjacent to the falciform ligament, possibly focal fatty infiltration. Uterus is present with large coarse calcified masses consistent with degenerating fibroids. Additional findings as above. Preliminary impression was provided by [facility].
[2018-07-20] MEDS ORDERED: Morphine 4 MG/ML VIAL SC PRN (11:00)
--- NOTE | 2018-07-20 17:38 | CARD ---
APPROVED REPORT Date of service: 07/19/2018 EKG Measurement Heart [id number] <Conclusion> Sinus bradycardia with marked sinus arrhythmia Minimal voltage criteria for LVH, may be normal variant Borderline ECG
[2018-07-20] MEDS: Albuterol-Ipratrop 3 mg / 0.5 (3 ml) UD INH SCH (19:54)
[2018-07-20] MEDS ORDERED: Aluminum Hydroxide/Magnesium Hydroxide Susp (30 mL) PO PRN (20:29)
[2018-07-21] MEDS: Morphine 4 MG/ML VIAL IV PRN ×3 (00:29→19:03)
[2018-07-21] MEDS: Albuterol-Ipratrop 3 mg / 0.5 (3 ml) UD INH SCH ×4 (01:23→19:51)
[2018-07-21] MEDS: Piperacillin/Tazobact 3.375 GM in Sodium Chloride 100 ML IVPB SCH (03:28)
[2018-07-21] MEDS: Dextrose 5%/0.45% NS 1,000 ML IV SCH ×2 (04:45→06:40)
[2018-07-21 07:15] LABS: BASO % 0.1 % (0.0-2.0); EOS # 0.2 K/uL (0.0-0.7); EOS % 1.5 % (0.0-4.0); HEMOGLOBIN 9.6 g/dL (11.0-16.0); LYMPH # 0.7 K/uL (1.0-4.3); MEAN CORPUSCULAR HEMOGLOBIN 27.8 pg (27.0-31.0); MEAN CORPUSCULAR HGB CONC 31.1 g/dL (33.0-37.0); MEAN PLATELET VOLUME 12.8 fL (7.2-11.7); MONO # 0.7 K/uL (0.0-0.8); MONO % 6.2 % (0.0-10.0); NEUT % 86.2 % (50.0-75.0); PLATELET COUNT 168 K/uL (130-400); RBC 3.43 Mil/uL (3.80-5.20); RED CELL DISTRIBUTION WIDTH 14.3 % (11.5-14.5); WHITE BLOOD COUNT 11.7 K/uL (4.8-10.8)
[2018-07-21 07:30] LABS: MEAN CELL VOLUME 89.5 fL (81.0-99.0)
[2018-07-21 08:03] LABS: ALB/GLOB RATIO 1.2 (1.0-2.1); ALBUMIN 3.2 g/dL (3.5-5.0); ALT/SGPT 17 U/L (9-52); AST/SGOT 26 U/L (14-36); BLOOD UREA NITROGEN 13 mg/dL (7-17); CALCIUM 7.8 mg/dl (8.6-10.4); GFR NON-AFRICAN AMERICAN > 60
--- NOTE | 2018-07-21 08:07 | CP.PCM.PN ---
Subjective - Date & Time of Evaluation Date of Evaluation: 07/21/18 Time of Evaluation: 07:50 - Subjective Subjective: Pt has abd cramps last night; need extra Morpine dose Cough is now better; Mucus is thick/ white, no fever No n/v, no diarrhea, no CP, no SOB, no edema Objective - Vital Signs/Intake and Output Vital Signs (last 24 hours): Temp Pulse Resp BP Pulse Ox 98.4 F 61 20 131/63 100 07/21/18 00:00 07/21/18 03:00 07/21/18 00:00 07/21/18 03:00 07/21/18 00:00 Intake and Output: 07/21/18 07/21/18 06:59 18:59 Intake Total 2350 Balance 2350 - Medications Medications: Current Medications Al Hydrox/Mg Hydrox/Simethicone (Maalox 30 Ml) 30 ml PO Q6H PRN PRN Reason: Indigestion / Heartburn Last Admin: 07/20/18 20:46 Dose: 30 ml Albuterol/Ipratropium (Duoneb 3 Mg/0.5 Mg (3 Ml) Ud) 3 ml INH RQ6 [facility] Last Admin: 07/21/18 01:23 Dose: Not Given Dicyclomine HCl (Bentyl) 10 mg PO TID [facility] Heparin Sodium (Porcine) (Heparin) 5,000 units SC Q12H [facility] Last Admin: 07/20/18 22:19 Dose: Not Given Hydrochlorothiazide (Microzide) 12.5 mg PO DAILY [facility] Last Admin: 07/20/18 09:48 Dose: 12.5 mg Influenza Virus Vaccine (Flucelvax Quad [id number] Syr) 60 mcg IM .ONCE ONE Stop: 07/22/18 10:16 Losartan Potassium (Cozaar) 100 mg PO DAILY [facility] Last Admin: 07/20/18 09:48 Dose: 100 mg Morphine Sulfate (Morphine) 5 mg IV Q6 PRN PRN Reason: Pain, severe (8-10) Last Admin: 07/21/18 06:38 Dose: 5 mg Pneumococcal Polyvalent Vaccine (Pneumovax 23 Vaccine) 0.5 ml IM .ONCE ONE Stop: 07/22/18 10:01 Polyethylene Glycol (Miralax) 17 gm PO DAILY [facility] - Labs Labs: 07/21/18 07:02 07/21/18 07:02 - Constitutional Appears: No Acute Distress - Eye Exam Eye Exam: Normal appearance - ENT Exam ENT Exam: Mucous Membranes Moist - Neck Exam Neck Exam: Full ROM. absent: Meningismus, Thyromegaly - Respiratory Exam Respiratory Exam: Decreased Breath Sounds. absent: Rales, Rhonchi, Wheezes - Cardiovascular Exam Cardiovascular Exam: REGULAR RHYTHM, +S1, +S2. absent: Gallop, JVD - GI/Abdominal Exam GI & Abdominal Exam: Soft. absent: Guarding, Rigid, Tenderness - Extremities Exam Extremities Exam: Full ROM, Normal Capillary Refill. absent: Calf Tenderness, Joint Swelling Assessment and Plan - Assessment and Plan (Free Text) Assessment: Sigmoid diverticulitis; HTN Cont meds/ Bentyl for cramps Cont IV antibiotic
[2018-07-21 09:12] LABS: LYMPHOCYTE 6 % (20-40); MONOCYTE 4 % (0-10); NEUTROPHIL 90 % (50-75); PLATELET ESTIMATE NORMAL (NORMAL); TOTAL CELLS COUNTED 100
[2018-07-21 09:13] LABS: ANISOCYTOSIS SLIGHT; LARGE PLATELETS PRESENT
[2018-07-21 09:16] LABS: HYPOCHROMIC SLIGHT; POLYCHROMIC SLIGHT
[2018-07-21 09:18] LABS: GIANT PLATELETS PRESENT
[2018-07-21] MEDS: POLYETHYLENE GLYCOL 3350 17 GM/Dose PACKET PO SCH (09:53)
[2018-07-21] MEDS: Pantoprazole 40 mg EC Tab PO SCH (09:53)
[2018-07-21] MEDS: (Novolog) Insulin Aspart, Recombinant 100 u/ml 10 ml vial SC SCH ×3 (12:23→21:40)
[2018-07-22] MEDS: Morphine 4 MG/ML VIAL IV PRN (01:08)
[2018-07-22] MEDS: Albuterol-Ipratrop 3 mg / 0.5 (3 ml) UD INH SCH ×4 (02:04→20:08)
[2018-07-22 07:31] LABS: BASO % 0.1 % (0.0-2.0); EOS # 0.7 K/uL (0.0-0.7); EOS % 5.9 % (0.0-4.0); LYMPH # 0.9 K/uL (1.0-4.3); LYMPH % 8.3 % (20.0-40.0); MEAN CORPUSCULAR HEMOGLOBIN 28.4 pg (27.0-31.0); MEAN CORPUSCULAR HGB CONC 33.3 g/dL (33.0-37.0); MEAN PLATELET VOLUME 12.2 fL (7.2-11.7); MONO # 0.9 K/uL (0.0-0.8); MONO % 8.5 % (0.0-10.0); NEUT # 8.5 K/uL (1.8-7.0); NEUT % 77.2 % (50.0-75.0); PLATELET COUNT 181 K/uL (130-400); RBC 3.86 Mil/uL (3.80-5.20); RED CELL DISTRIBUTION WIDTH 13.7 % (11.5-14.5)
[2018-07-22 07:37] LABS: MEAN CELL VOLUME 85.3 fL (81.0-99.0)
[2018-07-22 07:41] LABS: ALB/GLOB RATIO 1.2 (1.0-2.1); ALBUMIN 3.6 g/dL (3.5-5.0); ALT/SGPT 19 U/L (9-52); AST/SGOT 17 U/L (14-36); BLOOD UREA NITROGEN 15 mg/dL (7-17); CALCIUM 9.1 mg/dl (8.6-10.4); GFR NON-AFRICAN AMERICAN > 60
[2018-07-22] MEDS: (Novolog) Insulin Aspart, Recombinant 100 u/ml 10 ml vial SC SCH ×4 (08:05→21:44)
[2018-07-22] MEDS: Pantoprazole 40 mg EC Tab PO SCH (09:22)
[2018-07-22] MEDS: POLYETHYLENE GLYCOL 3350 17 GM/Dose PACKET PO SCH (09:22)
[2018-07-22] MEDS: Piperacillin/Tazobact 3.375 GM in Sodium Chloride 100 ML IVPB SCH ×2 (09:31→17:47)
[2018-07-22] MEDS ORDERED: Pneumococcal 23-Valent Vaccine IM ONE (10:00)
[2018-07-22] MEDS ORDERED: Influenza Vaccine 60 mcg/0.5 mL SYR (4YR UP) IM ONE (10:15)
[2018-07-22 11:12] LABS: EOSINOPHIL 4 % (0-4); LYMPHOCYTE 15 % (20-40); MONOCYTE 12 % (0-10); NEUTROPHIL 69 % (50-75); PLATELET ESTIMATE NORMAL (NORMAL); TOTAL CELLS COUNTED 100
[2018-07-22 11:13] LABS: ANISOCYTOSIS SLIGHT; LARGE PLATELETS PRESENT
[2018-07-22 11:14] LABS: HYPOCHROMIC SLIGHT; POLYCHROMIC SLIGHT; TOXIC GRANULATION PRESENT
[2018-07-22 11:15] LABS: TARGET CELLS SLIGHT
[2018-07-22] MEDS ORDERED: Potassium Chloride 20 mEq ER Tab PO ONE (15:45)
--- NOTE | 2018-07-22 16:30 | CP.PCM.PN ---
Subjective - Date & Time of Evaluation Date of Evaluation: 07/22/18 Time of Evaluation: 16:27 - Subjective Subjective: S: Feels better. No fever. decrease abdominal pain. Objective - Vital Signs/Intake and Output Vital Signs (last 24 hours): Temp Pulse Resp BP Pulse Ox 99.1 F 70 20 114/67 96 07/22/18 16:25 07/22/18 16:25 07/22/18 16:25 07/22/18 16:25 07/22/18 16:25 Intake and Output: 07/22/18 07/22/18 06:59 18:59 Intake Total 440 400 Balance 440 400 - Medications Medications: Current Medications Al Hydrox/Mg Hydrox/Simethicone (Maalox 30 Ml) 30 ml PO Q6H PRN PRN Reason: Indigestion / Heartburn Last Admin: 07/20/18 20:46 Dose: 30 ml Albuterol/Ipratropium (Duoneb 3 Mg/0.5 Mg (3 Ml) Ud) 3 ml INH RQ6 [facility] Last Admin: 07/22/18 15:04 Dose: Not Given Dicyclomine HCl (Bentyl) 10 mg PO TID [facility] Last Admin: 07/22/18 13:20 Dose: 10 mg Heparin Sodium (Porcine) (Heparin) 5,000 units SC Q12H [facility] Last Admin: 07/22/18 09:51 Dose: Not Given Hydrochlorothiazide (Microzide) 12.5 mg PO DAILY [facility] Last Admin: 07/22/18 09:22 Dose: 12.5 mg Piperacillin Sod/Tazobactam (Sod 3.375 gm/ Sodium Chloride) 100 mls @ 200 mls/hr IVPB Q8H [facility]; Protocol Last Admin: 07/22/18 09:31 Dose: 200 mls/hr Insulin Aspart (Novolog) 0 unit SC ACHS [facility]; Protocol Last Admin: 07/22/18 11:35 Dose: Not Given Losartan Potassium (Cozaar) 100 mg PO DAILY [facility] Last Admin: 07/22/18 09:22 Dose: 100 mg Morphine Sulfate (Morphine) 5 mg IV Q6 PRN PRN Reason: Pain, severe (8-10) Last Admin: 07/22/18 01:08 Dose: 5 mg Pantoprazole Sodium (Protonix Ec Tab) 40 mg PO DAILY [facility] Last Admin: 07/22/18 09:22 Dose: 40 mg Polyethylene Glycol (Miralax) 17 gm PO DAILY [facility] Last Admin: 07/22/18 09:22 Dose: 17 gm - Labs Labs: 07/22/18 07:19 07/22/18 07:19 - Constitutional Appears: No Acute Distress - Head Exam Head Exam: NORMAL INSPECTION - Eye Exam Eye Exam: Normal appearance - ENT Exam ENT Exam: Normal Exam - Neck Exam Neck Exam: Normal Inspection - Respiratory Exam Respiratory Exam: NORMAL BREATHING PATTERN - Cardiovascular Exam Cardiovascular Exam: REGULAR RHYTHM - GI/Abdominal Exam GI & Abdominal Exam: Soft - Rectal Exam Rectal Exam: Deferred - Extremities Exam Extremities Exam: Normal Inspection Assessment and Plan (1) Diverticulitis Status: Acute (2) Abdominal pain Status: Acute - Assessment and Plan (Free Text) Assessment: A/p: Continue pain medication. s/p colonoscopy last year Dr. Atkinson " No Cancer"
[2018-07-23] MEDS: Albuterol-Ipratrop 3 mg / 0.5 (3 ml) UD INH SCH ×2 (01:00→08:35)
[2018-07-23] MEDS: Piperacillin/Tazobact 3.375 GM in Sodium Chloride 100 ML IVPB SCH ×2 (01:45→09:44)
[2018-07-23 07:39] LABS: BASO % 0.1 % (0.0-2.0); EOS # 0.8 K/uL (0.0-0.7); EOS % 8.4 % (0.0-4.0); HEMOGLOBIN 10.9 g/dL (11.0-16.0); LYMPH # 0.9 K/uL (1.0-4.3); MEAN CORPUSCULAR HEMOGLOBIN 28.4 pg (27.0-31.0); MEAN CORPUSCULAR HGB CONC 33.1 g/dL (33.0-37.0); MEAN PLATELET VOLUME 12.5 fL (7.2-11.7); MONO # 0.8 K/uL (0.0-0.8); MONO % 8.6 % (0.0-10.0); NEUT # 6.5 K/uL (1.8-7.0); NEUT % 72.9 % (50.0-75.0); RBC 3.85 Mil/uL (3.80-5.20); RED CELL DISTRIBUTION WIDTH 13.7 % (11.5-14.5)
[2018-07-23 07:43] LABS: ALB/GLOB RATIO 1.2 (1.0-2.1); ALBUMIN 3.7 g/dL (3.5-5.0); ALT/SGPT 14 U/L (9-52); AST/SGOT 18 U/L (14-36); BLOOD UREA NITROGEN 14 mg/dL (7-17); CALCIUM 9.1 mg/dl (8.6-10.4); GFR NON-AFRICAN AMERICAN 56
[2018-07-23] MEDS: (Novolog) Insulin Aspart, Recombinant 100 u/ml 10 ml vial SC SCH ×2 (08:06→11:43)
[2018-07-23 08:11] VITALS: BP 124/65; PULSE 74; TEMP 98.4; O2SAT 96
--- NOTE | 2018-07-23 09:03 | CP.PCM.PN ---
Subjective - Date & Time of Evaluation Date of Evaluation: 07/23/18 Time of Evaluation: 08:20 - Subjective Subjective: Pt no CP, no SOB, no edema; (+) abd pain almost gone and good appetite No n/v, no diarrhea Objective - Vital Signs/Intake and Output Vital Signs (last 24 hours): Temp Pulse Resp BP Pulse Ox 98.4 F 74 20 124/65 96 07/23/18 08:10 07/23/18 08:10 07/23/18 08:10 07/23/18 08:10 07/23/18 08:10 Intake and Output: 07/23/18 07/23/18 06:59 18:59 Intake Total 350 Balance 350 - Medications Medications: Current Medications Al Hydrox/Mg Hydrox/Simethicone (Maalox 30 Ml) 30 ml PO Q6H PRN PRN Reason: Indigestion / Heartburn Last Admin: 07/20/18 20:46 Dose: 30 ml Albuterol/Ipratropium (Duoneb 3 Mg/0.5 Mg (3 Ml) Ud) 3 ml INH RQ6 [facility] Last Admin: 07/23/18 08:35 Dose: 3 ml Dicyclomine HCl (Bentyl) 10 mg PO TID [facility] Last Admin: 07/22/18 17:47 Dose: 10 mg Hydrochlorothiazide (Microzide) 12.5 mg PO DAILY [facility] Last Admin: 07/22/18 09:22 Dose: 12.5 mg Piperacillin Sod/Tazobactam (Sod 3.375 gm/ Sodium Chloride) 100 mls @ 200 mls/hr IVPB Q8H [facility]; Protocol Last Admin: 07/23/18 01:45 Dose: 200 mls/hr Insulin Aspart (Novolog) 0 unit SC ACHS [facility]; Protocol Last Admin: 07/23/18 08:06 Dose: Not Given Losartan Potassium (Cozaar) 100 mg PO DAILY [facility] Last Admin: 07/22/18 09:22 Dose: 100 mg Pantoprazole Sodium (Protonix Ec Tab) 40 mg PO DAILY [facility] Last Admin: 07/22/18 09:22 Dose: 40 mg Polyethylene Glycol (Miralax) 17 gm PO DAILY [facility] Last Admin: 07/22/18 09:22 Dose: 17 gm - Labs Labs: 07/23/18 07:04 07/23/18 07:04 - Constitutional Appears: No Acute Distress - Eye Exam Eye Exam: Normal appearance - ENT Exam ENT Exam: Mucous Membranes Moist - Neck Exam Neck Exam: Full ROM. absent: Lymphadenopathy, Tenderness - Respiratory Exam Respiratory Exam: Clear to Ausculation Bilateral. absent: Rales, Rhonchi, Wheezes - Cardiovascular Exam Cardiovascular Exam: REGULAR RHYTHM, +S1, +S2. absent: Gallop, JVD - GI/Abdominal Exam GI & Abdominal Exam: Soft. absent: Guarding, Tenderness - Extremities Exam Extremities Exam: Full ROM, Normal Capillary Refill. absent: Calf Tenderness, Joint Swelling, Pedal Edema Assessment and Plan - Assessment and Plan (Free Text) Assessment: Sigmoid divericulosis; HTN, Rash w/ s wheezing Dscharge on Cipro + Singulair Cont OPD meds
[2018-07-23] MEDS: Pantoprazole 40 mg EC Tab PO SCH (09:44)
[2018-07-23] MEDS: POLYETHYLENE GLYCOL 3350 17 GM/Dose PACKET PO SCH ×2 (09:44→10:56)
== END 2018-07-23 14:50 | disposition home or self-care (01) | DRG 392 ==
LOC: C.ER 17:27 → EEVIPCON 22:14 → C.3T 22:14
PROVIDERS: ADMIT Internal Medicine; ATTEND Internal Medicine
DX: K57.32 Diverticulitis of large intestine without perforation or abscess without bleeding (principal); E78.5 Hyperlipidemia, unspecified; I10 Essential (primary) hypertension; Z88.3 Allergy status to other anti-infective agents; Z87.891 Personal history of nicotine dependence; Z85.3 Personal history of malignant neoplasm of breast; J20.9 Acute bronchitis, unspecified; R21 Rash and other nonspecific skin eruption